=== PATIENT | female | born 1945 | race Caucasian/White ===

== ENCOUNTER → 2017-06-01 | Outpatient (CLI) | payer MEDICARE, BC ==
--- NOTE | 2017-06-03 08:04 | MM ---
Reason for exam: screening (asymptomatic). Last mammogram was performed 1 year and 3 months ago. History: Patient is postmenopausal. Benign left mammotome panel of the left breast, April 11, 2007. Benign left mammotome panel of the left breast, February 01, 2006. Core biopsy of the left breast. Core biopsy of the right breast. Excisional biopsy of the right breast. Physical Findings: A clinical breast exam by your physician is recommended on an annual basis and results should be correlated with mammographic findings. MG 3D Screening Mammo W/Cad Bilateral CC and MLO view(s) were taken. Prior study comparison: March 10, 2016, bilateral MG 3d screening mammo w/cad. March 01, 2015, left breast MG work up mamm w CAD LT. February 21, 2015, bilateral MG screening mammo w CAD. February 05, 2014, bilateral digital screening mammo w/CAD. December 15, 2012, bilateral digital screening mammo w/CAD. The breast tissue is heterogeneously dense. This may lower the sensitivity of mammography. Previous mammotome biopsy in the left breast x 2. Post excisional changes in the right breast. ASSESSMENT: Negative, BI-RAD 1 RECOMMENDATION: Routine screening mammogram of both breasts in 1 year.
== END | disposition home or self-care (01) ==
LOC: RADMAMWWP 14:51
PROVIDERS: ATTEND Family Medicine
DX: Z12.31 Encounter for screening mammogram for malignant neoplasm of breast (principal)
CPT/HCPCS: 77063; G0202

== ENCOUNTER → 2018-06-08 | Outpatient (CLI) | payer MEDICARE, BC ==
--- NOTE | 2018-06-13 11:31 | MM ---
Reason for exam: screening (asymptomatic). Last mammogram was performed 1 year ago. History: Patient is postmenopausal. Benign left mammotome panel of the left breast, April 11, 2007. Benign left mammotome panel of the left breast, February 01, 2006. Core biopsy of the left breast. Core biopsy of the right breast. Excisional biopsy of the right breast. Physical Findings: A clinical breast exam by your physician is recommended on an annual basis and results should be correlated with mammographic findings. MG 3D Screening Mammo W/Cad Bilateral CC and MLO view(s) were taken. Prior study comparison: June 01, 2017, bilateral MG 3d screening mammo w/cad. March 10, 2016, bilateral MG 3d screening mammo w/cad. The breast tissue is heterogeneously dense. This may lower the sensitivity of mammography. Benign calcifications in the right breast. Post biopsy change bilaterally. No significant changes when compared with prior studies. ASSESSMENT: Benign, BI-RAD 2 RECOMMENDATION: Routine screening mammogram of both breasts in 1 year.
== END | disposition home or self-care (01) ==
LOC: RADMAMWWP 10:12
PROVIDERS: ATTEND Family Medicine
DX: Z12.31 Encounter for screening mammogram for malignant neoplasm of breast (principal)
CPT/HCPCS: 77063; 77067

== ENCOUNTER 2019-05-10 01:22 | Inpatient (IN) | payer MEDICARE, BC ==
[2019-05-10 02:19] LABS: Basophils % (A) 0 %; Eosinophils # (A) 0.1 k/uL (0-0.7); Eosinophils % (A) 2 %; HCT 41.3 % (34.0-46.0); HGB 13.9 gm/dL (11.4-16.0); Lymphocytes % (A) 13 %; MCH 32.9 pg (25.0-35.0); MCHC 33.7 g/dL (31.0-37.0); MCV 97.7 fL (80.0-100.0); Mean Platelet Volume 7.6; Monocytes # (A) 0.4 k/uL (0-1.0); Monocytes % (A) 5 %; Neutrophils # (A) 6.2 k/uL (1.3-7.7); Neutrophils % (A) 77 %; Platelet Count 205 k/uL (150-450); RBC 4.23 m/uL (3.80-5.40); RDW 13.6 % (11.5-15.5)
[2019-05-10 02:29] LABS: ALT 40 U/L (9-52); AST 57 U/L (14-36); African American GFR (CKD) >90 (>60 ml/min/1.73 sqM); Albumin 3.9 g/dL (3.5-5.0); Alkaline Phosphatase 129 U/L (38-126); Anion Gap 11 mmol/L; Blood Urea Nitrogen 19 mg/dL (7-17); Carbon Dioxide 19 mmol/L (22-30); Chloride 104 mmol/L (98-107); Glucose 106 mg/dL (74-99); Magnesium 1.9 mg/dL (1.6-2.3); Sodium 134 mmol/L (137-145); Total Bilirubin 0.5 mg/dL (0.2-1.3); Total Protein 6.9 g/dL (6.3-8.2)
--- NOTE | 2019-05-10 02:32 | XR ---
EXAM: XR Chest, 2 Views CLINICAL HISTORY: ITS.REASON XR Reason: Chest Pain TECHNIQUE: Frontal and lateral views of the chest. COMPARISON: 08/24/15. FINDINGS: Lungs: Mild lower lung atelectasis or developing infiltrate. Pleural space: No significant pleural effusion or pneumothorax. Heart: Stable cardiomediastinal silhouette. Mediastinum: See above. Bones/joints: No acute fracture. IMPRESSION: Mild lower lung atelectasis or developing infiltrate.
[2019-05-10 02:34] LABS: INR 0.9 (<1.2); Partial Thromboplastin Time 24.1 sec (22.0-30.0); Prothrombin Time 10.1 sec (9.0-12.0)
[2019-05-10] MEDS ORDERED: HEPARIN SODIUM,PORCINE 5,000 UNIT/ML 1 ML VIAL IV PRN (02:57)
[2019-05-10] MEDS ORDERED: HEPARIN SODIUM,PORCINE 5,000 UNIT/ML 1 ML VIAL IV ONE (02:57)
[2019-05-10] MEDS ORDERED: HEPARIN SOD,PORK IN 0.45% NACL 25,000 UNIT in 0.45% NACL 1 250ML.BAG IV SCH (03:00)
[2019-05-10] MEDS ORDERED: MORPHINE SULFATE 2 MG/ML SYRINGE IVP PRN (03:01)
--- NOTE | 2019-05-10 03:11 | ED ---
Chest Pain HPI - General Chief Complaint: Chest Pain Stated Complaint: Chest discomfort Time Seen by Provider: 05/10/19 01:50 Source: patient, family Mode of arrival: ambulatory Limitations: no limitations - History of Present Illness Initial Comments: This patient is 73-year-old woman who presents with substernal chest pain that woke her from sleep tonight. She does have history of previous for vessel CABG performed approximately 9 years ago. The patient states she has been having episodes like this intermittently going back a number of months now. She had described this to her sugar mixer and she had actually had a stress test in the clinic today. She does not believe that they had a result from a stress test yet. She states that in addition to the substernal pain, which she cannot characterize well, she had some radiation to her left arm. She states that the symptoms lasted number of minutes but have now resolved. She had some asso ciated shortness of breath. MD Complaint: chest pain -: hour(s) Onset: awoke with symptoms Pain Location: substernal Pain Radiation: LUE Severity: moderate Quality: other (Unable to characterize) Consistency: now resolved Improves With: nothing Worsens With: nothing Anginal Symptoms: dyspnea Treatments Prior to Arrival: none - Related Data Home Medications Medication Instructions Recorded Confirmed Isosorbide Mononitrate ER [Imdur] 0 mg PO DAILY 08/24/15 08/24/15 Simvastatin [Zocor] 0 mg PO HS 08/24/15 08/24/15 Thyroid,Pork [[place] Thyroid] 60 mg PO DAILY 08/24/15 08/24/15 Allergies Allergy/AdvReac Type Severity Reaction Status Date / Time morphine Allergy Itching Verified 05/10/19 01:36 narcotics Allergy Unknown Uncoded 08/24/15 16:08 Review of Systems ROS Statement: Those systems with pertinent positive or pertinent negative responses have been documented in the HPI. ROS Other: All systems not noted in ROS Statement are negative. Constitutional: Denies: fever, chills Respiratory: Reports: as per HPI, dyspnea. Denies: cough, wheezes Cardiovascular: Reports: chest pain. Denies: palpitations, orthopnea, edema, syncope Gastrointestinal: Denies: abdominal pain, nausea, vomiting Genitourinary: Denies: dysuria, hematuria Musculoskeletal: Denies: back pain Skin: Denies: rash Neurological: Denies: headache, weakness, numbness Hematological/Lymphatic: Denies: easy bleeding EKG Findings - EKG Results: EKG: interpreted by CLARISSED, sinus rhythm (With sinus arrhythmia, Rate approximate 77 bpm), normal axis, normal QRS - Blocks, [place], Hypertrophy, ST Abn: Repolarization changes or abnormalities: ST or T wave suggestive of ischemia (Lateral leads) Past Medical History Past Medical History: Coronary Artery Disease (CAD) Additional Past Medical History / Comment(s): shorgen's, reynauds, back pain History of Any Multi-Drug Resistant Organisms: None Reported Past Surgical History: Coronary Bypass/CABG Past Psychological History: No Psychological Hx Reported Smoking Status: Former smoker Past Alcohol Use History: Occasional Past Drug Use History: None Reported General Exam Limitations: no limitations General appearance: alert, in no apparent distress Head exam: Present: atraumatic, normocephalic Eye exam: Present: normal appearance. Absent: scleral icterus, conjunctival injection ENT exam: Present: normal oropharynx Neck exam: Present: normal inspection Respiratory exam: Present: normal lung sounds bilaterally. Absent: respiratory distress, wheezes, rales, rhonchi, stridor Cardiovascular Exam: Present: regular rate, normal rhythm, normal heart sounds. Absent: systolic murmur, diastolic murmur, rubs, gallop GI/Abdominal exam: Present: soft. Absent: distended, tenderness, guarding, rebound, rigid Extremities exam: Present: normal inspection, normal capillary refill. Absent: pedal edema, calf tenderness Back exam: Present: normal inspection. Absent: CVA tenderness (R), CVA tenderne ss (L) Neurological exam: Present: alert Skin exam: Present: warm, dry, intact, normal color. Absent: rash Course Vital Signs 05/10/19 05/10/19 01:31 03:00 Temperature 97.5 F L Pulse Rate 84 83 Respiratory 19 18 Rate Blood Pressure 145/85 128/71 O2 Sat by Pulse 99 97 Oximetry Disposition Clinical Impression: Chest pain, Elevated troponin I level Disposition: ADMITTED IP TO THIS HOSP Condition: Fair Referrals: Katherin Sanchez MD [Primary Care Provider] - 1-2 days
[2019-05-10] MEDS: SODIUM CHLORIDE 0.9% 1,000 ML IV SCH ×2 (03:16→13:45)
[2019-05-10 04:14] LABS: Glucose,Whole Blood 111 mg/dL (75-99)
[2019-05-10] MEDS: ISOSORBIDE MONONITRATE ER 30 MG TAB.ER.24H PO SCH (08:25)
[2019-05-10] MEDS: THYROID, PORK 30 MG TAB PO SCH (08:25)
[2019-05-10 08:52] LABS: Basophils % (A) 1 %; Eosinophils # (A) 0.1 k/uL (0-0.7); Eosinophils % (A) 2 %; HCT 42.5 % (34.0-46.0); HGB 14.1 gm/dL (11.4-16.0); Lymphocytes % (A) 21 %; MCHC 33.2 g/dL (31.0-37.0); MCV 99.3 fL (80.0-100.0); Mean Platelet Volume 7.7; Monocytes # (A) 0.3 k/uL (0-1.0); Monocytes % (A) 6 %; Neutrophils # (A) 3.3 k/uL (1.3-7.7); Neutrophils % (A) 68 %; Platelet Count 169 k/uL (150-450); RBC 4.29 m/uL (3.80-5.40); RDW 13.1 % (11.5-15.5); WBC 4.8 k/uL (3.8-10.6)
[2019-05-10] MEDS ORDERED: METOPROLOL TARTRATE 50 MG TAB PO SCH (09:15)
[2019-05-10] MEDS ORDERED: ASPIRIN 325 MG TAB PO STA (10:22)
[2019-05-10] MEDS: ATORVASTATIN 40 MG TAB PO SCH (10:32)
--- NOTE | 2019-05-10 11:09 | P.HPIM ---
History of Present Illness H&P Date: 05/10/19 This is a 73-year-old female patient of Dr. Sanchez. Patient presents with complaints of chest pain. Patient reports the chest pain woke her up from her sleep last night was described as Center chest pain that radiated down both arms. Patient does have a past medical history of previous coronary artery bypass graft surgery approximately 9 years ago. Additional medical history includes Reynauds, back pain and ex-smoker. Chest x-ray completed showing mild lower lung atelectasis or developing infiltrate. EKG completed showing sinus rhythm with marked sinus arrhythmia. Patient having elevated troponin 0.126 and 3.860. Patient started on heparin drip cardiology service consulted planning c ardiac catheterization today. At this time reporting improvement with chest pain. Patient denies shortness breath. Patient denies cough. Patient denies nausea vomiting or diarrhea. Patient denies any urinary burning or frequency. Repeat chest x-ray has been ordered for a.m. Review of Systems please refer to HPI otherwise unremarkable Past Medical History Past Medical History: Coronary Artery Disease (CAD), Hyperlipidemia, Hypertension Additional Past Medical History / Comment(s): denys, richards, back pain History of Any Multi-Drug Resistant Organisms: None Reported Past Surgical History: Coronary Bypass/CABG Additional Past Surgical History / Comment(s): back fusion approx 2008 Past Anesthesia/Blood Transfusion Reactions: No Reported Reaction Additional Past Anesthesia/Blood Transfusion Reaction / Comment(s): "takes longer to come out from anesthesia" Past Psychological History: No Psychological Hx Reported Smoking Status: Former smoker Past Alcohol Use History: Occasional Past Drug Use History: None Reported Medications and Allergies Home Medications Medication Instructions Recorded Confirmed Type Isosorbide Mononitrate ER [Imdur] 30 mg PO DAILY 08/24/15 05/10/19 History Thyroid,Pork [[place] Thyroid] 60 mg PO DAILY 08/24/15 05/10/19 History Ezetimibe [Zetia] 10 mg PO DAILY 05/10/19 05/10/19 History Simvastatin [Zocor] 40 mg PO HS 05/10/19 05/10/19 History traMADol HCL/ACETAMINOPHEN 1 tab PO BID PRN 05/10/19 05/10/19 History [Ultracet 37.5-325] Allergies Allergy/AdvReac Type Severity Reaction Status Date / Time morphine Allergy Itching Verified 05/10/19 07:23 narcotics Allergy Unknown Uncoded 08/24/15 16:08 Physical Exam Vitals: Vital Signs Temp Pulse Pulse Resp BP BP Pulse Ox 05/10/19 10:00 98 18 05/10/19 08:00 97.6 F 90 18 118/78 97 05/10/19 04:00 87 18 05/10/19 03:47 98 F 87 16 135/68 98 05/10/19 03:30 84 16 130/63 96 05/10/19 03:00 83 18 128/71 97 05/10/19 01:31 97.5 F L 84 19 145/85 99 Intake and Output 05/09/19 05/10/19 05/10/19 22:59 06:59 14:59 Intake Total 42.395 Balance 42.395 Intake: Intake, IV Titration 42.395 Amount Heparin Sod,Pork in 0.45% 42.395 NaCl 25,000 unit In 0.45 % NaCl 1 250ml.bag @ 12 UNITS/KG/HR 6.042 mls/hr IV .Q24H [facility] Rx#: [id number] Other: Voiding Method Toilet Toilet # Voids 1 Weight 50.6 kg Head normocephalic Neck supple Lungs clear to auscultation bilaterally no wheezing or crackles Heart regular rate and rhythm S1-S2, no rub or gallop Abdomen is soft nontender nondistended positive bowel sounds no hepatosplenomegaly Extremities no edema Neuro alert and orientated to 3 Results CBC & Chem 7: 05/10/19 08:20 05/10/19 02:00 Labs: Abnormal Lab Results - Last 24 Hours (Table) 05/10/19 05/10/19 05/10/19 Range/Units 02:00 02:00 04:13 APTT (22.0-30.0) sec Sodium 134 L (137-145) mmol/L Carbon Dioxide 19 L (22-30) mmol/L BUN 19 H (7-17) mg/dL Creatinine 0.51 L (0.52-1.04) mg/dL Glucose 106 H (74-99) mg/dL POC Glucose (mg/dL) 111 H (75-99) mg/dL AST 57 H (14-36) U/L Alkaline Phosphatase 129 H (38-126) U/L Troponin I 0.126 H* (0.000-0.034) ng/mL 05/10/19 05/10/19 Range/Units 08:20 08:20 APTT 62.4 H (22.0-30.0) sec Sodium (137-145) mmol/L Carbon Dioxide (22-30) mmol/L BUN (7-17) mg/dL Creatinine (0.52-1.04) mg/dL Glucose (74-99) mg/dL POC Glucose (mg/dL) (75-99) mg/dL AST (14-36) U/L Alkaline Phosphatase (38-126) U/L Troponin I 3.860 H* (0.000-0.034) ng/mL Thrombosis Risk Factor Assmnt - Choose All That Apply Any of the Below Risk Factors Present?: No Other Risk Factors: Yes Each Risk Factor Represents 2 Points: Age 61-74 years Other congenital or acquired thrombophilia - If yes, enter type in comment: No Thrombosis Risk Factor Assessment Total Risk Factor Score: 2 Thrombosis Risk Factor Assessment Level: Low Risk Assessment and Plan Assessment: 1. Chest pain related to non-ST elevated DC. Troponins elevated at 0.126 and 3.860. EKG completed showing sinus rhythm with marked sinus arrhythmia. Cardiology service is consulted. Heparin drip started. Patient planning to be taken to cardiac Cath per cardiology. 2. History of coronary artery bypass graft surgery 9 years prior 3. Ex-smoker 4. essential hypertension 5. Chronic back pain 6. History of reynauds 7. Hypothyroidism. Home meds resumed 8. Hyperlipidemia. DVT prophylaxis heparin drip. GI prophylaxis Pepcid Repeat chest x-ray ordered for a.m. Time with Patient: Greater than 30 (Greater than 60% of the total time spent in counseling and coordination of care. I performed an examination of the patient and discussed their management with the Nurse Practitioner. I have reviewed the Nurse Practitioner's notes and agree with the documented findings and plan of care)
[2019-05-10] MEDS ORDERED: IV FLUID CONTINUATION 400 ML IV ONE (11:19)
[2019-05-10] MEDS ORDERED: LIDOCAINE 1% INJ 10MG/ML (20 ML MDV) ONE (11:25)
[2019-05-10] MEDS ORDERED: fentaNYL (PF) 50 MCG/ML 2 ML AMP ONE (11:25)
[2019-05-10] MEDS ORDERED: fentaNYL (PF) 50 MCG/ML 2 ML AMP IV ONE (11:30)
[2019-05-10] MEDS ORDERED: LIDOCAINE 1% INJ 10MG/ML (20 ML MDV) SQ ONE (11:31)
[2019-05-10] MEDS ORDERED: MIDAZOLAM (PF) 2 MG/2 ML VIAL IV ONE (11:34)
[2019-05-10] MEDS ORDERED: IOPAMIDOL-370 125ML BTL INJ ONE (11:53)
[2019-05-10] MEDS ORDERED: IOPAMIDOL-370 100ML BTL INJ ONE (11:53)
[2019-05-10] MEDS ORDERED: RX INFO: IV CONTRAST WAS GIVEN 1 EACH MISC MISCELLANE PRN (12:09)
[2019-05-10] MEDS ORDERED: SODIUM CHLORIDE 0.9% 1,000 ML IV SCH (12:15)
[2019-05-10] MEDS ORDERED: ONDANSETRON 4 MG/2 ML VIAL IVP PRN (13:01)
[2019-05-10] MEDS ORDERED: ACETAMINOPHEN TAB 325 MG TAB PO PRN (13:01)
--- NOTE | 2019-05-10 13:44 | P.CRDCN ---
History of Present Illness History of present illness: This is Gracie Gaxiola PA-C dictating a consult on this patient The patient was interviewed and examined by me as well as by Dr. Suarez Case discussed with Dr. Suarez and he agrees with the plan of care IMPRESSION / ASSESSMENT: Acute coronary syndrome, rising troponins and ST depressions in the lateral pericardial and inferior leads, likely non-Q-wave [place] History of CAD status post CABG 4 Hypertension Dyslipidemia Hypothyroidism History of smoking PLAN: Patient has been given aspirin and started on heparin Discussed patient with Dr. López, he will proceed with coronary angiogram Increase atorvastatin to 40 mg daily Start metoprolol 50 mg twice a day HPI Patient is a 73-year-old female the past medical history of CAD status post CABG 4, hypertension, hypothyroidism, dyslipidemia, Sjgren syndrome, Raynaud's syndrome who presented with complaints of chest pain. She describes the pain as a" discomfort not pain" across her chest that radiates down her arms into her shoulders. She woke up with the pain. He also admits to associated shortness of breath. Denies nausea or diaphoresis. She states this pain is different from the pain she experienced during her [place] which was more of a" chest pain". She has been having this chest discomfort and associated shortness of breath with exertion on and off for the last few months. She also sometimes wakes up with the wakes up. She saw her child development instructor, Dr. López in the office and recently had a stress test. We do not have the results here. On admission, EKG showed ST depressions in the lateral precordial leads and inferior leads. Troponin elevated at 0.126. Patient seen and examined lying in bed. She still has the discomfort. Denies nausea, vomiting, diaphoresis, palpitations, lightheadedness, dizziness, syncope. ROS: No fevers, chills or rigors, no cough, phlegm or expectoration, no nausea, vomiting or diarrhea, no hematuria, dysuria, no musculoskeletal complaints, no strokes or seizures, no skin lesions. EXAMINATION: Patient is afebrile, pulse 90, respirations 15, blood pressure 118/78, oxygen saturation 97% on 2 L nasal cannula Patient seen and examined resting in bed, does not appear to be in any acute distress Lungs clear to auscultation bilaterally Heart is regular, systolic murmur appreciated at the apex No elevated JVD No lower extremity edema REVIEW OF LABS, ECG & MEDICAL DATA WBC 8.0, hemoglobin 13.9, platelets 205, sodium 134, potassium 4.0, BUNs 19, creatinine 0.51, magnesium 1.9 Troponin 3.860 from 0.[address] depression in the lateral precordial leads and inferior leads Past Medical History Past Medical History: Coronary Artery Disease (CAD), Hyperlipidemia, Hypertension Additional Past Medical History / Comment(s): samaria mcfarlane, back pain History of Any Multi-Drug Resistant Organisms: None Reported Past Surgical History: Coronary Bypass/CABG Additional Past Surgical History / Comment(s): back fusion approx 2008 Past Anesthesia/Blood Transfusion Reactions: No Reported Reaction Additional Past Anesthesia/Blood Transfusion Reaction / Comment(s): "takes longer to come out from anesthesia" Past Psychological History: No Psychological Hx Reported Smoking Status: Former smoker Past Alcohol Use History: Occasional Past Drug Use History: None Reported Medications and Allergies Home Medications Medication Instructions Recorded Confirmed Type Isosorbide Mononitrate ER [Imdur] 30 mg PO DAILY 08/24/15 05/10/19 History Thyroid,Pork [[place] Thyroid] 60 mg PO DAILY 08/24/15 05/10/19 History Ezetimibe [Zetia] 10 mg PO DAILY 05/10/19 05/10/19 History Simvastatin [Zocor] 40 mg PO HS 05/10/19 05/10/19 History traMADol HCL/ACETAMINOPHEN 1 tab PO BID PRN 05/10/19 05/10/19 History [Ultracet 37.5-325] Allergies Allergy/AdvReac Type Severity Reaction Status Date / Time morphine Allergy Itching Verified 05/10/19 07:23 narcotics Allergy Unknown Uncoded 08/24/15 16:08 Physical Exam Vitals: Vital Signs Temp Pulse Pulse Resp BP BP Pulse Ox 05/10/19 04:00 87 18 05/10/19 03:47 98 F 87 16 135/68 98 05/10/19 03:30 84 16 130/63 96 05/10/19 03:00 83 18 128/71 97 05/10/19 01:31 97.5 F L 84 19 145/85 99 Intake and Output 05/09/19 05/10/19 05/10/19 22:59 06:59 14:59 Other: Voiding Method Toilet # Voids 1 Weight 50.6 kg Results 05/10/19 08:20 05/10/19 02:00 Cardiac Enzymes 05/10/19 05/10/19 Range/Units 02:00 02:00 AST 57 H (14-36) U/L Troponin I 0.126 H* (0.000-0.034) ng/mL Coagulation 05/10/19 Range/Units 02:00 PT 10.1 (9.0-12.0) sec APTT 24.1 (22.0-30.0) sec CBC 05/10/19 Range/Units 02:00 WBC 8.0 (3.8-10.6) k/uL RBC 4.23 (3.80-5.40) m/uL Hgb 13.9 (11.4-16.0) gm/dL Hct 41.3 (34.0-46.0) % Plt Count 205 (150-450) k/uL Comprehensive Metabolic Panel 05/10/19 Range/Units 02:00 Sodium 134 L (137-145) mmol/L Potassium 4.0 (3.5-5.1) mmol/L Chloride 104 (98-107) mmol/L Carbon Dioxide 19 L (22-30) mmol/L BUN 19 H (7-17) mg/dL Creatinine 0.51 L (0.52-1.04) mg/dL Glucose 106 H (74-99) mg/dL Calcium 9.0 (8.4-10.2) mg/dL AST 57 H (14-36) U/L ALT 40 (9-52) U/L Alkaline Phosphatase 129 H (38-126) U/L Total Protein 6.9 (6.3-8.2) g/dL Albumin 3.9 (3.5-5.0) g/dL Current Medications Generic Name Dose Route Start Last Admin Trade Name Freq PRN Reason Stop Dose Admin Aspirin 325 mg 05/11/19 09:00 Aspirin PO DAILY FAWAD Atorvastatin Calcium 10 mg 05/10/19 21:00 Lipitor PO HS FAWAD Heparin Sodium (Porcine) 0 unit 05/10/19 02:57 Heparin IV PER PROTOCOL PRN Low PTT Protocol Heparin Sodium/Sodium Chloride 250 mls @ 6.042 mls/hr 05/10/19 03:00 05/10/19 03:22 25,000 unit/ Sodium Chloride IV 12 units/kg/hr .Q24H FAWAD 6.042 mls/hr Administration Protocol 12 UNITS/KG/HR Sodium Chloride 1,000 mls @ 90 mls/hr 05/10/19 03:15 05/10/19 03:16 Saline 0.9% IV 90 mls/hr .Q11H7M FAWAD Administration Isosorbide Mononitrate 30 mg 05/10/19 09:00 Imdur PO DAILY FAWAD Nitroglycerin 0.4 mg 05/10/19 03:01 Nitrostat SUBLINGUAL Q5M PRN Chest Pain Thyroid 60 mg 05/10/19 09:00 [place] Thyroid PO DAILY FAWAD Intake and Output 05/09/19 05/10/19 05/10/19 22:59 06:59 14:59 Other: Voiding Method Toilet # Voids 1 Weight 50.6 kg 05/10/19 02:00 05/10/19 02:00
[2019-05-10] MEDS: CLOPIDOGREL 75 MG TAB PO SCH (13:45)
[2019-05-10 14:47] VITALS: BMI 18.6
[2019-05-10] MEDS: traMADol-ACETAMINOP 37.5-325MG 1 EACH TAB PO PRN (14:48)
--- NOTE | 2019-05-10 16:22 | CC ---
CARDIAC CATHETERIZATION REPORT Mrs. Reddy is a 73-year-old female with known history of coronary artery disease, status post coronary artery bypass grafting, history of hypertension and hyperlipidemia, who presented with symptoms of chest discomfort and had mild troponin elevation. In view of that, recommendation was made regarding cardiac catheterization. The procedure as well as risks and complications were discussed with the patient, who was in full understanding and agreement. PROCEDURE: Patient was brought to the [facility] in a fasting, semi-sedated state after receiving fentanyl and Benadryl and achieving a moderate conscious sedated state. Using Xylocaine anesthesia and Seldinger technique, a 6-Lao sheath was introduced in the right femoral artery. Selective right and left coronary angiography was performed using 6-Lao 4 bend right and right Leonie catheters. Multiple views were taken of the coronary arteries, including hemiaxial views. Following that, a 6-Lao right Leonie was used to cannulate the saphenous vein graft to the obtuse marginal branch 1,2 and diagonal and HERNANDEZ to LAD. Images of the grafts were obtained. Following that, a 6-Lao tight pigtail catheter was introduced in the left ventricle and a 30- degree ROBLES view of the left ventricle was obtained. Following that, catheter and sheath were removed. Hemostasis was obtained with deployment of an Angio-Seal. There was no immediate complication. Patient was returned to her room in stable condition. FINDINGS: 1. FLUOROSCOPY: There was severe calcification involving all the coronary arteries. 2. LEFT MAIN: This vessel is 99% occluded distally with minimal flow into the LAD and the diagonal. 3. LAD: This vessel is totally occluded proximally with no antegrade flow. 4. LEFT CIRCUMFLEX: This vessel is occluded proximally with no antegrade flow. 5. RIGHT CORONARY ARTERY: This vessel is dominant, diffusely diseased throughout the proximal and mid segment, totally occluded distally, with no significant antegrade flow. Throughout the vessel the of the vessel has diffuse disease, up to 95% before the total occlusion. 6. Saphenous vein graft to the second obtuse marginal branch. The proximal and distal anastomotic sites are patent. The flow into the obtuse marginal branch is brisk, has retrograde flow in the proximal left circumflex. 7. Saphenous vein graft to the obtuse marginal branch 1. This graft is totally occluded proximally. 8. Saphenous vein graft to the diagonal branch. The proximal and distal anastomotic sites are patent. There is retrograde flow into the LAD filling up the LAD and there is also retrograde flow into the distal RCA and the PDA. 9. HERNANDEZ to LAD. The distal anastomotic site is totally occluded. There is no flow into the LAD. LEFT VENTRICULOGRAM: Left ventriculogram was performed in 30-degree ROBLES view and revealed inferoapical akinesis with 3 to 4+ mitral regurgitation. HEMODYNAMICS: There was no gradient across the aortic valve. The left ventricular end- diastolic pressure was 12 to 14 mmHg. CONCLUSION: 1. Severe triple-vessel coronary artery disease with subtotally occluded distal left main. 2. Patent saphenous vein graft to diagonal branch with retrograde flow into the LAD. 3. Patent saphenous vein graft to the obtuse marginal branch 2. 4. Totally occluded saphenous vein graft to the obtuse marginal branch and totally occluded distal HERNANDEZ graft. 5. Moderately impaired left ventricular systolic function with 3 to 4+ mitral regurgitation. RECOMMENDATION: It is possible that some of her symptoms are related to the acute total occlusion of the distal left main. At this time I will maximize her medical therapy, re- evaluate her mitral regurgitation by echocardiography and, depending on her progress, further recommendations will be made. Those findings and recommendations were discussed with the patient, and she is in full understanding and agreement. Duration of procedure was 25 minutes. MMODL / IJN: [id number] / [place]IE
[2019-05-10] MEDS ORDERED: ATORVASTATIN 10 MG TAB PO SCH (21:00)
[2019-05-10] MEDS: METOPROLOL TARTRATE 25 MG TAB PO SCH (21:09)
[2019-05-11] MEDS: traMADol-ACETAMINOP 37.5-325MG 1 EACH TAB PO PRN ×2 (04:35→17:01)
[2019-05-11 05:03] LABS: Basophils % (A) 1 %; Eosinophils # (A) 0.2 k/uL (0-0.7); Eosinophils % (A) 3 %; HCT 39.3 % (34.0-46.0); Lymphocytes # (A) 1.1 k/uL (1.0-4.8); Lymphocytes % (A) 19 %; MCH 32.9 pg (25.0-35.0); MCV 99.5 fL (80.0-100.0); Mean Platelet Volume 7.6; Monocytes # (A) 0.4 k/uL (0-1.0); Monocytes % (A) 7 %; Neutrophils % (A) 67 %; Platelet Count 180 k/uL (150-450); RBC 3.95 m/uL (3.80-5.40); RDW 13.2 % (11.5-15.5); WBC 5.9 k/uL (3.8-10.6)
[2019-05-11 05:13] LABS: ALT 52 U/L (9-52); AST 135 U/L (14-36); African American GFR (CKD) >90 (>60 ml/min/1.73 sqM); Albumin 3.1 g/dL (3.5-5.0); Alkaline Phosphatase 75 U/L (38-126); Anion Gap 6 mmol/L; Blood Urea Nitrogen 13 mg/dL (7-17); Calcium 8.2 mg/dL (8.4-10.2); Carbon Dioxide 20 mmol/L (22-30); Chloride 111 mmol/L (98-107); Cholesterol 92 mg/dL (<200); Glucose 84 mg/dL (74-99); HDL Cholesterol 60 mg/dL (40-60); LDL Cholesterol,Calculated 24 mg/dL (0-99); Potassium 4.1 mmol/L (3.5-5.1); Sodium 137 mmol/L (137-145); Total Bilirubin 0.5 mg/dL (0.2-1.3); Total Protein 5.7 g/dL (6.3-8.2); Triglycerides 41 mg/dL (<150)
--- NOTE | 2019-05-11 08:34 | XR ---
EXAMINATION TYPE: XR chest 2V DATE OF EXAM: 05/11/2019 COMPARISON: 05/10/2019 INDICATION: Follow-up infiltrate TECHNIQUE: Frontal and lateral views of the chest are obtained. FINDINGS: The heart size is normal. The pulmonary vasculature is normal. There is resolution of previous atelectasis at the left base. Lung monge appear clear. Sternotomy wi res are present from prior CABG.. IMPRESSION: 1. No acute pulmonary process.
[2019-05-11] MEDS ORDERED: ASPIRIN 325 MG TAB PO SCH (09:00)
[2019-05-11] MEDS: LISINOPRIL 5 MG TAB PO SCH (09:30)
[2019-05-11] MEDS: THYROID, PORK 30 MG TAB PO SCH (09:30)
[2019-05-11] MEDS: SODIUM CHLORIDE 0.9% 1,000 ML IV SCH (09:38)
[2019-05-11] MEDS: ISOSORBIDE MONONITRATE ER 30 MG TAB.ER.24H PO SCH (09:40)
[2019-05-11] MEDS: FAMOTIDINE 20 MG TAB PO SCH (09:40)
[2019-05-11] MEDS: METOPROLOL TARTRATE 25 MG TAB PO SCH (09:40)
[2019-05-11] MEDS: ATORVASTATIN 40 MG TAB PO SCH (09:40)
[2019-05-11] MEDS: CLOPIDOGREL 75 MG TAB PO SCH (09:40)
[2019-05-11] MEDS: ASPIRIN 81 MG PO SCH (09:41)
--- NOTE | 2019-05-11 10:25 | ECHOF ---
Referral Reason:mi,mr MEASUREMENTS -------- HEIGHT: 165.1 cm WEIGHT: 50.3 kg BP: 133/54 RVIDd: 2.6 cm (< 3.3) IVSd: 1.3 cm (0.6 - 1.1) LVIDd: 5.2 cm (3.9 - 5.3) LVPWd: 1.3 cm (0.6 - 1.1) IVSs: 1.5 cm LVIDs: 4.1 cm LVPWs: 1.5 cm LA Diam: 4.1 cm (2.7 - 3.8) LAESV Index (A-L): 38.04 ml/m Ao Diam: 3.0 cm (2.0 - 3.7) AV Cusp: 1.8 cm (1.5 - 2.6) MV EXCURSION: 19.132 mm (> 18.000) MV EF SLOPE: 103 mm/s (70 - 150) EPSS: 1.3 cm MV E Chad: 1.20 m/s MV DecT: 234 ms MV A Chad: 0.39 m/s MV E/A Ratio: 3.08 AR PHT: 327 ms RAP: 5.00 mmHg RVSP: 35.21 mmHg FINDINGS -------- Sinus rhythm. This was a technically good study. The left ventricular size is normal. There is mild concentric left ventricular hypertrophy. Overa ll left ventricular systolic function is mild-moderately impaired with, an EF between 40 - 45 %. Ba meredith inferior LV wall motion is hypokinetic. Basal inferoseptal LV wall motion is hypokinetic. M id inferior LV wall motion is hypokinetic. Mid inferoseptal LV wall motion is hypokinetic. The right ventricle is normal in size. LA is moderately dilated 34-39 ml/m2 The right atrium is normal in size. Interatrial and interventricular septum intact. There is mild aortic valve sclerosis. There is moderate aortic regurgitation. The mitral valve leaflets are mildly thickened. Mild mitral annular calcification present. Severe mitral regurgitation is present. Moderate tricuspid regurgitation present. There is mild pulmonary hypertension. The right ventric ular systolic pressure, as measured by Doppler, is 35.21mmHg. Trace/mild (physiologic) pulmonic regurgitation. The aortic root size is normal. Normal inferior vena cava with normal inspiratory collapse consistent with estimated right atrial pre ssure of 5 mmHg. There is no pericardial effusion. CONCLUSIONS -------- 1. Sinus rhythm. 2. This was a technically good study. 3. The left ventricular size is normal. 4. There is mild concentric left ventricular hypertrophy. 5. Overall left ventricular systolic function is mild-moderately impaired with, an EF between 40 - 45 %. 6. Basal inferior LV wall motion is hypokinetic. 7. Basal inferoseptal LV wall motion is hypokinetic. 8. Mid inferior LV wall motion is hypokinetic. 9. Mid inferoseptal LV wall motion is hypokinetic. 10. The right ventricle is normal in size. 11. LA is moderately dilated 34-39 ml/m2 12. The right atrium is normal in size. 13. Interatrial and interventricular septum intact. 14. There is mild aortic valve sclerosis. 15. There is moderate aortic regurgitation. 16. The mitral valve leaflets are mildly thickened. 17. Mild mitral annular calcification present. 18. Severe mitral regurgitation is present. 19. Moderate tricuspid regurgitation present. 20. There is mild pulmonary hypertension. 21. The right ventricular systolic pressure, as measured by Doppler, is 35.21mmHg. 22. Trace/mild (physiologic) pulmonic regurgitation. 23. The aortic root size is normal. 24. Normal inferior vena cava with normal inspiratory collapse consistent with estimated right atrial pressure of 5 mmHg. 25. There is no pericardial effusion. STAKING PRESS OPERATOR: Bruna Morton RDCS
--- NOTE | 2019-05-11 11:10 | P.PN ---
Subjective Progress Note Date: 05/11/19 This is a 73-year-old female patient of Dr. Sanchez. Patient presents with complaints of chest pain. Patient reports the chest pain woke her up from her sleep last night was described as Center chest pain that radiated down both arms. Patient does have a past medical history of previous coronary artery bypass graft surgery approximately 9 years ago. Additional medical history includes Reynauds, back pain and ex-smoker. Chest x-ray completed showing mild lower lung atelectasis or developing infiltrate. EKG completed showing sinus rhythm with marked sinus arrhythmia. Patient having elevated troponin 0.126 and 3.860. Patient started on heparin drip cardiology service consulted planning cardiac catheterization today. At this time reporting improvement with chest pain. Patient denies shortness breath. Patient denies cough. Patient denies nausea vomiting or diarrhea. Patient denies any urinary burning or frequency. Repeat chest x-ray has been ordered for a.m. On 05/11/2019 patient is alert and oriented 3. Patient currently up brushing teeth in bathroom. Patient did undergo cardiac catheterization yesterday without intervention per cardiology services JT echo to be completed today. Discussed with nursing staff patient will be kept for monitoring per cardiology. At this time patient reports she is still short of breath but denies any chest pain. Patient denies any nausea vomiting or diarrhea. Patient denies any urinary burning or frequency. Repeat chest x-ray was completed this a.m. showing no acute process. Objective - Vital Signs Vital signs: Vital Signs Temp 97.6 F 05/11/19 08:00 Pulse 60 05/11/19 09:00 Resp 17 05/11/19 09:00 BP 133/54 05/11/19 09:00 Pulse Ox 94 L 05/11/19 09:00 Intake & Output 05/10/19 05/11/19 05/11/19 18:59 06:59 18:59 Intake Total 763.949 2430 Output Total 550 Balance 766.541 7852 Weight 50.6 kg 49.9 kg Intake: IV 150 1080 Sodium Chloride 0.9% 1, 1080 000 ml @ 90 mls/hr IV . Q11H7M [facility] Rx#:[id number] Intake, IV Titration 132.395 Amount Heparin Sod,Pork in 0.45% 42.395 NaCl 25,000 unit In 0.45 % NaCl 1 250ml.bag @ 12 UNITS/KG/HR 6.042 mls/hr IV .Q24H [facility] Rx#: [id number] Sodium Chloride 0.9% 1, 90 000 ml @ 90 mls/hr IV . Q11H7M [facility] Rx#:[id number] Oral 200 540 Output: Urine 550 Other: Voiding Method Toilet Bedside Commode # Voids 1 0 - Exam Head normocephalic Neck supple Lungs clear to auscultation bilaterally no wheezing or crackles Heart regular rate and rhythm S1-S2, no rub or gallop Abdomen is soft nontender nondistended positive bowel sounds no hepatosplenomegaly Extremities no edema Neuro alert and orientated to 3 - Labs CBC & Chem 7: 05/11/19 04:29 05/11/19 04:29 Labs: Abnormal Lab Results - Last 24 Hours (Table) 05/10/19 05/11/19 Range/Units 13:49 04:29 Chloride 111 H (98-107) mmol/L Carbon Dioxide 20 L (22-30) mmol/L Creatinine 0.50 L (0.52-1.04) mg/dL Calcium 8.2 L (8.4-10.2) mg/dL AST 135 H (14-36) U/L Troponin I 6.030 H* (0.000-0.034) ng/mL Total Protein 5.7 L (6.3-8.2) g/dL Albumin 3.1 L (3.5-5.0) g/dL Assessment and Plan Assessment: 1. Chest pain related to non-ST elevated WI. Troponins elevated at 0.126 and 3.860. EKG completed showing sinus rhythm with marked sinus arrhythmia. Cardiac cath completed showing severe triple-vessel coronary artery disease with subtotally occluded distal left main. Per cardiology symptoms may be related to the acute total occlusion of the distal left main per cardiology recommended maximization of her medical therapy and reevaluation of mitral regurg on 2Decho. 2. History of coronary artery bypass graft surgery 9 years prior 3. Ex-smoker 4. essential hypertension 5. Chronic back pain 6. History of reynauds 7. Hypothyroidism. Home meds resumed 8. Hyperlipidemia. I performed an examination of the patient and discussed their management with the Nurse Practitioner. I have reviewed the Nurse Practitioner's notes and agree with the documented findings and plan of care
--- NOTE | 2019-05-11 12:58 | P.PN ---
Subjective This is Gracie Gaxiola PA-C dictating a progress note on this patient The patient was interviewed and examined by me as well as by Dr. Suarez Case discussed with Dr. Suarez and he agrees with the plan of care IMPRESSION / ASSESSMENT: non-Q-wave GA status post coronary angiogram showing triple-vessel disease with subtotally occluded distal left main as well as occluded SVG to obtuse marginal and occluded distal HERNANDEZ graft Impaired LV systolic function, EF 40-45%, ischemic cardiomyopathy Coronary artery disease status post CABG Mitral regurgitation, recent echo showing severe MR Hypertension Dyslipidemia PLAN: Maximize medical therapy for CAD and ischemic cardiomyopathy Continue with atorvastatin 40 mg daily and dual antiplatelet therapy, WANDER, and imdur Increase metoprolol to 50 mg twice a day, monitor blood pressure and for b radycardia Start Ranexa 500 mg twice a day, monitor for QT prolongation Encouraged patient to get up and walk around to see how she is tolerating medication changes HPI/interval history Patient is a 73-year-old female with past medical history of CAD status post CABG who presented with complaints of chest discomfort. Her EKG showed ST depressions in the lateral precordial and inferior leads in her troponins were elevated. She underwent coronary angiography which showed triple-vessel disease, subtotally occluded distal left main, and occluded SVG to obtuse marginal and distal HERNANDEZ graft. The decision was made to treat her medically. Echo showed mild to moderately impaired systolic LV function, EF 40-45%. Patient seen and examined resting comfortably in her chair. States her chest discomfort has completely resolved. Denies any shortness of breath. Was able to get up and walk to the bathroom without any dizziness. EXAMINATION Patient is afebrile, pulse 70, respirations 14, blood pressure 118/56, oxygen saturation 98% on room air Patient seen and examined resting in her chair, no acute distress appears comfortable Lungs are clear to auscultation bilaterally Heart is regular, systolic murmur appreciated at the apex No lower extremity edema noted REVIEW OF LABS, ECG Coronary angiography showed severe triple-vessel coronary artery disease with subtotally occluded distal left main, patent saphenous vein graft to diagonal branch with retrograde flow to LAD, patent saphenous vein graft to obtuse marginal branch 2, totally occluded saphenous vein graft to obtuse marginal br anch and totally occluded distal HERNANDEZ graft, moderately impaired LV systolic function with 3-4+ mitral regurgitation Echocardiogram revealed normal LV size, mild concentric LVH, systolic function mild to moderately impaired, EF 40-45%, basal inferior and inferoseptal hypokinesis, mid inferior and mid inferior septal LV hypokinesis, moderate AR, severe MR EKG sinus rhythm, absolute QT around 460 ms WBC 5.9, hemoglobin 13 0, sodium 137, potassium 41, BUN 13, creatinine 0.5 Troponins 6.03, 3.86, 0.126 Cholesterol 92, LDL 24, triglycerides 41, HDL 60 Objective - Vital Signs Vital signs: Vital Signs Temp 97.6 F 05/11/19 08:00 Pulse 60 05/11/19 09:00 Resp 17 05/11/19 09:00 BP 133/54 05/11/19 09:00 Pulse Ox 94 L 05/11/19 09:00 Intake & Output 05/10/19 05/11/19 05/11/19 18:59 06:59 18:59 Intake Total 359.236 5213 Output Total 550 Balance 116.377 4503 Weight 50.6 kg 49.9 kg Intake: IV 150 1080 Sodium Chloride 0.9% 1, 1080 000 ml @ 90 mls/hr IV . Q11H7M [facility] Rx#:[id number] Intake, IV Titration 132.395 Amount Heparin Sod,Pork in 0.45% 42.395 NaCl 25,000 unit In 0.45 % NaCl 1 250ml.bag @ 12 UNITS/KG/HR 6.042 mls/hr IV .Q24H [facility] Rx#: [id number] Sodium Chloride 0.9% 1, 90 000 ml @ 90 mls/hr IV . Q11H7M [facility] Rx#:[id number] Oral 200 540 Output: Urine 550 Other: Voiding Method Toilet Bedside Commode Bedside Commode # Voids 1 0 - Labs CBC & Chem 7: 05/11/19 04:29 05/11/19 04:29 Labs: Abnormal Lab Results - Last 24 Hours (Table) 05/10/19 05/11/19 Range/Units 13:49 04:29 Chloride 111 H (98-107) mmol/L Carbon Dioxide 20 L (22-30) mmol/L Creatinine 0.50 L (0.52-1.04) mg/dL Calcium 8.2 L (8.4-10.2) mg/dL AST 135 H (14-36) U/L Troponin I 6.030 H* (0.000-0.034) ng/mL Total Protein 5.7 L (6.3-8.2) g/dL Albumin 3.1 L (3.5-5.0) g/dL
[2019-05-11] MEDS: LORATADINE 10 MG TAB PO PRN (17:00)
[2019-05-11] MEDS: NITROGLYCERIN SL TABS 0.4 MG TAB SUBLINGUAL PRN ×2 (17:05→17:36)
[2019-05-11] MEDS ORDERED: HEPARIN SODIUM,PORCINE 5,000 UNIT/ML 1 ML VIAL IV ONE (18:00)
[2019-05-11] MEDS ORDERED: DEXTROSE 5% IN WATER 250 ML with AMIODARONE 300 MG IV ONE (18:30)
[2019-05-11] MEDS: HEPARIN SOD,PORK IN 0.45% NACL 25,000 UNIT in 0.45% NACL 1 250ML.BAG IV SCH (18:50)
[2019-05-11 19:48] LABS: INR 0.9 (<1.2); Partial Thromboplastin Time 22.5 sec (22.0-30.0)
[2019-05-11] MEDS: RANOLAZINE 500 MG TAB.ER.12H PO SCH (22:32)
[2019-05-11] MEDS: METOPROLOL TARTRATE 50 MG TAB PO SCH (22:59)
[2019-05-12 04:14] LABS: Basophils % (A) 0 %; Eosinophils # (A) 0.3 k/uL (0-0.7); Eosinophils % (A) 4 %; HCT 37.4 % (34.0-46.0); HGB 12.5 gm/dL (11.4-16.0); Lymphocytes # (A) 1.4 k/uL (1.0-4.8); Lymphocytes % (A) 24 %; MCH 33.5 pg (25.0-35.0); MCHC 33.5 g/dL (31.0-37.0); Mean Platelet Volume 7.1; Monocytes # (A) 0.6 k/uL (0-1.0); Monocytes % (A) 9 %; Neutrophils # (A) 3.6 k/uL (1.3-7.7); Neutrophils % (A) 59 %; Platelet Count 170 k/uL (150-450); RBC 3.74 m/uL (3.80-5.40); RDW 12.3 % (11.5-15.5)
[2019-05-12 04:17] LABS: ALT 89 U/L (9-52); AST 135 U/L (14-36); African American GFR (CKD) >90 (>60 ml/min/1.73 sqM); Albumin 3.1 g/dL (3.5-5.0); Alkaline Phosphatase 68 U/L (38-126); Anion Gap 7 mmol/L; Blood Urea Nitrogen 15 mg/dL (7-17); Calcium 8.6 mg/dL (8.4-10.2); Carbon Dioxide 22 mmol/L (22-30); Chloride 109 mmol/L (98-107); Glucose 82 mg/dL (74-99); Potassium 4.1 mmol/L (3.5-5.1); Sodium 138 mmol/L (137-145); Total Bilirubin 0.6 mg/dL (0.2-1.3); Total Protein 5.8 g/dL (6.3-8.2)
[2019-05-12] MEDS: NITROGLYCERIN SL TABS 0.4 MG TAB SUBLINGUAL PRN (07:10)
[2019-05-12] MEDS: traMADol-ACETAMINOP 37.5-325MG 1 EACH TAB PO PRN ×2 (07:30→20:53)
[2019-05-12] MEDS: LORATADINE 10 MG TAB PO PRN (07:30)
[2019-05-12] MEDS: ISOSORBIDE MONONITRATE ER 30 MG TAB.ER.24H PO SCH (09:21)
[2019-05-12] MEDS: FAMOTIDINE 20 MG TAB PO SCH (09:21)
[2019-05-12] MEDS: METOPROLOL TARTRATE 50 MG TAB PO SCH ×2 (09:21→20:51)
[2019-05-12] MEDS: CLOPIDOGREL 75 MG TAB PO SCH (09:21)
[2019-05-12] MEDS: ASPIRIN 81 MG PO SCH (09:22)
[2019-05-12] MEDS: LISINOPRIL 5 MG TAB PO SCH (09:22)
--- NOTE | 2019-05-12 09:29 | P.PN ---
Subjective Progress Note Date: 05/12/19 This is a 73-year-old female patient of Dr. Sanchez. Patient presents with complaints of chest pain. Patient reports the chest pain woke her up from her sleep last night was described as Center chest pain that radiated down both arms. Patient does have a past medical history of previous coronary artery bypass graft surgery approximately 9 years ago. Additional medical history includes Reynauds, back pain and ex-smoker. Chest x-ray completed showing mild lower lung atelectasis or developing infiltrate. EKG completed showing sinus rhythm with marked sinus arrhythmia. Patient having elevated troponin 0.126 and 3.860. Patient started on heparin drip cardiology service consulted planning cardiac catheterization today. At this time reporting improvement with chest pain. Patient denies shortness breath. Patient denies cough. Patient denies nausea vomiting or diarrhea. Patient denies any urinary burning or frequency. Repeat chest x-ray has been ordered for a.m. On 05/11/2019 patient is alert and oriented 3. Patient currently up brushing teeth in bathroom. Patient did undergo cardiac catheterization yesterday without intervention per cardiology services JT echo to be completed today. Discussed with nursing staff patient will be kept for monitoring per cardiology. At this time patient reports she is still short of breath but denies any chest pain. Patient denies any nausea vomiting or diarrhea. Patient denies any urinary burning or frequency. Repeat chest x-ray was completed this a.m. showing no acute process. On 05/12/2019 patient's alert and oriented 3. Patient reports she had increased chest pain last night was found to be in A. fib with RVR per nursing staff. Per cardiology patient was started on heparin drip and given amiodarone. Patient did convert back to sinus rhythm. At the time patient denies chest pain or shortness of breath. Patient denies nausea vomiting or diarrhea. Patient denies any urinary burning or frequency Objective - Vital Signs Vital signs: Vital Signs Temp 97.7 F 05/12/19 09:00 Pulse 70 05/12/19 09:00 Resp 13 05/12/19 09:00 BP 130/75 05/12/19 09:00 Pulse Ox 97 05/12/19 09:00 Intake & Output 05/11/19 05/12/19 05/12/19 18:59 06:59 18:59 Intake Total 0 280 Output Total 0 Balance 0 280 Weight 51.2 kg Intake: IV 0 180 Sodium Chloride 0.9% 1, 0 180 000 ml @ 90 mls/hr IV . Q11H7M [facility] Rx#:[id number] Oral 100 Output: Urine 0 Other: Voiding Method Bedside Commode Bedside Commode # Voids 1 1 - Exam Head normocephalic Neck supple Lungs clear to auscultation bilaterally no wheezing or crackles Heart regular rate and rhythm S1-S2, no rub or gallop Abdomen is soft nontender nondistended positive bowel sounds no hepa tosplenomegaly Extremities no edema Neuro alert and orientated to 3 - Labs CBC & Chem 7: 05/12/19 03:42 05/12/19 03:42 Labs: Abnormal Lab Results - Last 24 Hours (Table) 05/12/19 05/12/19 05/12/19 Range/Units 03:42 03:42 03:42 RBC 3.74 L (3.80-5.40) m/uL APTT 50.8 H (22.0-30.0) sec Chloride 109 H (98-107) mmol/L AST 135 H (14-36) U/L ALT 89 H (9-52) U/L Total Protein 5.8 L (6.3-8.2) g/dL Albumin 3.1 L (3.5-5.0) g/dL Assessment and Plan Assessment: 1. Chest pain related to non-ST elevated OR. Troponins elevated at 0.126 and 3.860. EKG completed showing sinus rhythm with marked sinus arrhythmia. Cardiac cath completed showing severe triple-vessel coronary artery disease with subtotally occluded distal left main. Per cardiology symptoms may be related to the acute total occlusion of the distal left main per cardiology recommended maximization of her medical therapy and reevaluation of mitral regurg on 2Decho. 2-D echo completed showing EF between 40 and 45% with severe mitral regurg. 2. History of coronary artery bypass graft surgery 9 years prior 3. A. fib with RVR. Patient was started on amiodarone and started on heparin drip per cardiology. Patient has since converted 3. Ex-smoker 4. essential hypertension 5. Chronic back pain 6. History of reynauds 7. Hypothyroidism. Home meds resumed 8. Hyperlipidemia. I performed an examination of the patient and discussed their management with the Nurse Practitioner. I have reviewed the Nurse Practitioner's notes and agree with the documented findings and plan of care
[2019-05-12] MEDS: RANOLAZINE 500 MG TAB.ER.12H PO SCH (09:31)
[2019-05-12] MEDS: ATORVASTATIN 40 MG TAB PO SCH (09:31)
[2019-05-12] MEDS ORDERED: AMIODARONE 360 MG in DEXTROSE 5% IN WATER 200 ML IV ONE ×2 (12:44)
--- NOTE | 2019-05-12 13:01 | P.PN ---
Subjective This is Gracie Gaxiola PA-C dictating a progress note on this patient The patient was interviewed and examined by me as well as by Dr. Suarez Case discussed with Dr. Suarez and he agrees with the plan of care IMPRESSION / ASSESSMENT: Atrial fibrillation with RVR, on amiodarone and heparin, currently in sinus rhythm Non-Q-wave CT status post coronary angiogram showing severe multivessel coronary artery disease, medical management recommended Ischemic cardiomyopathy Coronary artery disease status post CABG Severe mitral regurgitation Hypertension Dyslipidemia Liver enzymes elevated, possibly related to hypoperfusion PLAN: Continue with IV amiodarone, convert to oral amiodarone tomorrow, 200 mg twice a day CHADS VASC score at least 4 for her age, female, hypertension, CAD, anticoagulation indicated, start eliquis 2.5 mg twice a day since her weight is below 60 kg and she is also on Plavix, may stop heparin 6 hours after starting eliquis Stop Ranexa to avoid QT prolongation with amiodarone Start oral Lasix 20 mg Continue with dual antiplatelet therapy, atorvastatin, metoprolol, and lisinopril well as Imdur Continue to maximize medical management of CAD as tolerated Liver enzymes elevated, repeat tomorrow HPI/interval history Patient is a 73-year-old female with CAD status post CABG who presented with complaints of chest discomfort. She had an abnormal EKG as well as elevated troponins and was taken for coronary angiography which showed severe triple- vessel disease, subtotally occluded distal left main, occluded SVG to obtuse marginal and distal HERNANDEZ graft. She is being treated medically. Last night she went into atrial fibrillation and was started on IV amiodarone and heparin. When she went into atrial fibrillation she experienced chest discomfort that was similar to the discomfort that brought her in. She had another episode of chest discomfort this morning which occurred while she was in sinus rhythm. Now she does not have any chest discomfort but does have some shortness of breath. She has been walking the hallways without any dizziness or lightheadedness. EXAMINATION Temperature 97.7F, pulse 70, respirations 13, blood pressure 130/70 75, oxygen saturation 97% on room air Patient seen and examined sitting in her chair, no acute distress Lungs with few crackles at the bases Heart is regular rate and rhythm, systolic murmur appreciated at the apex consistent with mitral regurgitation No lower extremity edema No elevated JVD noted REVIEW OF LABS, ECG Bedside telemetry reveals sinus rhythm WBC 6.0 hemoglobin 12.5, platelets 170, potassium 4.1, BUN 15, creatinine 0.6, AST 135, ALT 89 Objective - Vital Signs Vital signs: Vital Signs Temp 97.7 F 05/12/19 09:00 Pulse 82 05/12/19 10:25 Resp 13 05/12/19 09:00 BP 122/52 05/12/19 10:25 Pulse Ox 98 05/12/19 10:25 Intake & Output 05/11/19 05/12/19 05/12/19 18:59 06:59 18:59 Intake Total 0 280 Output Total 0 Balance 0 280 Weight 51.2 kg Intake: IV 0 180 Sodium Chloride 0.9% 1, 0 180 000 ml @ 90 mls/hr IV . Q11H7M [facility] Rx#:[id number] Oral 100 Output: Urine 0 Other: Voiding Method Bedside Commode Bedside Commode Bedside Commode # Voids 1 1 - Labs CBC & Chem 7: 05/12/19 03:42 05/12/19 03:42 Labs: Abnormal Lab Results - Last 24 Hours (Table) 05/12/19 05/12/19 05/12/19 Range/Units 03:42 03:42 03:42 RBC 3.74 L (3.80-5.40) m/uL APTT 50.8 H (22.0-30.0) sec Chloride 109 H (98-107) mmol/L AST 135 H (14-36) U/L ALT 89 H (9-52) U/L Total Protein 5.8 L (6.3-8.2) g/dL Albumin 3.1 L (3.5-5.0) g/dL
[2019-05-12] MEDS: APIXABAN 2.5 MG TABLET PO SCH ×2 (13:20→21:00)
[2019-05-12] MEDS: AMIODARONE 300 MG in DEXTROSE 5% IN WATER 250 ML IV SCH ×2 (19:01)
[2019-05-12] MEDS ORDERED: FUROSEMIDE 20 MG TAB PO STA (19:45)
[2019-05-13 04:49] LABS: Basophils # (A) 0.1 k/uL (0-0.2); Basophils % (A) 1 %; Eosinophils # (A) 0.3 k/uL (0-0.7); Eosinophils % (A) 4 %; HCT 40.9 % (34.0-46.0); HGB 13.2 gm/dL (11.4-16.0); Lymphocytes # (A) 1.3 k/uL (1.0-4.8); Lymphocytes % (A) 22 %; MCH 32.1 pg (25.0-35.0); MCHC 32.2 g/dL (31.0-37.0); MCV 99.7 fL (80.0-100.0); Monocytes # (A) 0.5 k/uL (0-1.0); Monocytes % (A) 8 %; Neutrophils # (A) 3.7 k/uL (1.3-7.7); Neutrophils % (A) 62 %; Platelet Count 174 k/uL (150-450); RDW 13.4 % (11.5-15.5)
[2019-05-13 05:01] LABS: ALT 96 U/L (9-52); AST 120 U/L (14-36); African American GFR (CKD) >90 (>60 ml/min/1.73 sqM); Albumin 3.6 g/dL (3.5-5.0); Alkaline Phosphatase 72 U/L (38-126); Anion Gap 6 mmol/L; Blood Urea Nitrogen 17 mg/dL (7-17); Carbon Dioxide 27 mmol/L (22-30); Chloride 105 mmol/L (98-107); Glucose 91 mg/dL (74-99); Potassium 4.7 mmol/L (3.5-5.1); Sodium 138 mmol/L (137-145); Total Bilirubin 0.6 mg/dL (0.2-1.3); Total Protein 6.5 g/dL (6.3-8.2)
[2019-05-13] MEDS: AMIODARONE 300 MG in DEXTROSE 5% IN WATER 250 ML IV SCH ×2 (06:57)
[2019-05-13] MEDS: FAMOTIDINE 20 MG TAB PO SCH (08:58)
[2019-05-13] MEDS: CLOPIDOGREL 75 MG TAB PO SCH (08:58)
[2019-05-13] MEDS: ATORVASTATIN 40 MG TAB PO SCH (08:59)
[2019-05-13] MEDS: ISOSORBIDE MONONITRATE ER 30 MG TAB.ER.24H PO SCH (08:59)
[2019-05-13] MEDS: METOPROLOL TARTRATE 50 MG TAB PO SCH (08:59)
[2019-05-13] MEDS: APIXABAN 2.5 MG TABLET PO SCH ×2 (08:59→20:14)
[2019-05-13] MEDS: ASPIRIN 81 MG PO SCH (08:59)
[2019-05-13] MEDS: HEPARIN SOD,PORK IN 0.45% NACL 25,000 UNIT in 0.45% NACL 1 250ML.BAG IV SCH (09:02)
[2019-05-13] MEDS: traMADol-ACETAMINOP 37.5-325MG 1 EACH TAB PO PRN (09:14)
[2019-05-13] MEDS: LORATADINE 10 MG TAB PO PRN (09:14)
[2019-05-13] MEDS: LISINOPRIL 5 MG TAB PO SCH (10:11)
[2019-05-13] MEDS: FUROSEMIDE 20 MG TAB PO SCH (10:12)
[2019-05-13] MEDS: METOPROLOL TARTRATE 25 MG TAB PO SCH ×3 (10:12→20:18)
[2019-05-13] MEDS: AMIODARONE 200 MG TAB PO SCH ×2 (12:41→20:14)
--- NOTE | 2019-05-13 14:30 | P.PN ---
Subjective Progress Note Date: 05/13/19 This is a 73-year-old female patient of Dr. Sanchez. Patient presents with complaints of chest pain. Patient reports the chest pain woke her up from her sleep last night was described as Center chest pain that radiated down both arms. Patient does have a past medical history of previous coronary artery bypass graft surgery approximately 9 years ago. Additional medical history includes Reynauds, back pain and ex-smoker. Chest x-ray completed showing mild lower lung atelectasis or developing infiltrate. EKG completed showing sinus rhythm with marked sinus arrhythmia. Patient having elevated troponin 0.126 and 3.860. Patient started on heparin drip cardiology service consulted planning cardiac catheterization today. At this time reporting improvement with chest pain. Patient denies shortness breath. Patient denies cough. Patient denies nausea vomiting or diarrhea. Patient denies any urinary burning or frequency. Repeat chest x-ray has been ordered for a.m. On 05/11/2019 patient is alert and oriented 3. Patient currently up brushing teeth in bathroom. Patient did undergo cardiac catheterization yesterday without intervention per cardiology services JT echo to be completed today. Discussed with nursing staff patient will be kept for monitoring per cardiology. At this time patient reports she is still short of breath but denies any chest pain. Patient denies any nausea vomiting or diarrhea. Patient denies any urinary burning or frequency. Repeat chest x-ray was completed this a.m. showing no acute process. On 05/12/2019 patient's alert and oriented 3. Patient reports she had increased chest pain last night was found to be in A. fib with RVR per nursing staff. Per cardiology patient was started on heparin drip and given amiodarone. Patient did convert back to sinus rhythm. At the time patient denies chest pain or shortness of breath. Patient denies nausea vomiting or diarrhea. Patient denies any urinary burning or frequency On 05/13/2019 patient was seen and examined in the ICU she is alert and oriented 3 in no apparent distress she had an episode of shortness of breath and palpitation otherwise she denies any complaints there is no fever or chills no headache or dizziness no chest pain no nausea or vomiting no abdominal pain no diarrhea and no urinary symptoms Objective - Vital Signs Vital signs: Vital Signs Temp 97.5 F L 05/13/19 09:00 Pulse 63 05/13/19 13:00 Resp 21 07/20/19 13:00 BP 119/57 05/13/19 13:00 Pulse Ox 98 05/13/19 09:00 Intake & Output 05/12/19 05/13/19 05/13/19 18:59 06:59 18:59 Intake Total 33.3 610 360.416 Output Total 2460 Balance 33.3 -1850 360.416 Weight 50.4 kg Intake: IV 160 NS carrier 160 Intake, IV Titration 33.3 450 360.416 Amount Amiodarone 300 mg In 250 143.75 Dextrose 5% in Water 250 ml @ 0.5 MG/MIN 25 mls/hr IV .Q10H [facility] Rx#: [id number] Amiodarone 360 mg In 33.3 200 Dextrose 5% in Water 200 ml @ 1 MG/MIN 33.333 mls/ hr IV .Q6H [facility] Rx#: [id number] Heparin Sod,Pork in 0.45% 216.666 NaCl 25,000 unit In 0.45 % NaCl 1 250ml.bag @ 12 UNITS/KG/HR 5.988 mls/hr IV .Q24H [facility] Rx#: [id number] Output: Urine 2460 Other: Voiding Method Bedside Commode Bedside Commode # Voids 1 - Exam In general patient is alert and oriented 3 in no apparent distress Head normocephalic and atraumatic Neck supple no JVD no goiter Lungs clear to auscultation bilaterally no wheezing or crackles Heart regular rate and rhythm S1-S2, no rub or gallop Abdomen is soft nontender nondistended positive bowel sounds no hepatosplenomegaly Extremities no edema no cyanosis or clubbing Neuro no gross focal neurological deficit - Labs CBC & Chem 7: 05/13/19 00:17 05/13/19 04:26 Labs: Abnormal Lab Results - Last 24 Hours (Table) 05/13/19 05/13/19 Range/Units 04:26 04:26 APTT 44.5 H (22.0-30.0) sec AST 120 H (14-36) U/L ALT 96 H (9-52) U/L Assessment and Plan Plan: 1. Chest pain related to non-ST elevated NE. Troponins elevated at 0.126 and 3.860. EKG completed showing sinus rhythm with marked sinus arrhythmia. Cardiac cath completed showing severe triple-vessel coronary artery disease with subtotally occluded distal left main. Per cardiology symptoms may be related to the acute total occlusion of the distal left main per cardiology recommended maximization of her medical therapy and reevaluation of mitral regurg on 2Decho. 2-D echo completed showing EF between 40 and 45% with severe mitral regurg. 2. History of coronary artery bypass graft surgery 9 years prior 3. A. fib with RVR. Patient was started on amiodarone and started on heparin drip per cardiology. Patient has since converted 3. Ex-smoker 4. essential hypertension 5. Chronic back pain 6. History of reynauds 7. Hypothyroidism. Home meds resumed 8. Hyperlipidemia. Patient is on Lipitor will monitor liver enzymes very closely
--- NOTE | 2019-05-13 14:45 | P.PN ---
Subjective Progress Note Date: 05/13/19 This 73-year-old female with a history of ischemic heart diseaseas admitted with chest pain and was evaluated by cardiac catheterization. Patient was advised a maximum medical therapy. She was also found to have severe mitral regurgitation. Patient went into atrial fibrillation with a papular ventricular response. Patient was started on amiodarone. Patient converted back to sinus rhythm. She still complaining of shortness of breath intermittently. Otherwise not complaining of any chest pain Overall seems to be stable. She is on by mouth amiodarone and also Lasix. Ranexa was discontinued because of amiodarone which may prolong his QT interval. Increase activity as tolerated. if patient remains stable, possibly could be discharged home within next 24-48 hours. Objective - Vital Signs Vital signs: Vital Signs Temp 97.5 F L 05/13/19 09:00 Pulse 63 05/13/19 13:00 Resp 21 05/13/19 13:00 BP 119/57 05/13/19 13:00 Pulse Ox 98 05/13/19 09:00 Intake & Output 05/12/19 05/13/19 05/13/19 18:59 06:59 18:59 Intake Total 33.3 610 610.416 Output Total 2460 Balance 33.3 -1850 610.416 Weight 50.4 kg Intake: IV 160 NS carrier 160 Intake, IV Titration 33.3 450 360.416 Amount Amiodarone 300 mg In 250 143.75 Dextrose 5% in Water 250 ml @ 0.5 MG/MIN 25 mls/hr IV .Q10H [facility] Rx#: [id number] Amiodarone 360 mg In 33.3 200 Dextrose 5% in Water 200 ml @ 1 MG/MIN 33.333 mls/ hr IV .Q6H [facility] Rx#: [id number] Heparin Sod,Pork in 0.45% 216.666 NaCl 25,000 unit In 0.45 % NaCl 1 250ml.bag @ 12 UNITS/KG/HR 5.988 mls/hr IV .Q24H [facility] Rx#: [id number] Oral 250 Output: Urine 2460 Other: Voiding Method Bedside Commode Bedside Commode # Voids 1 - Exam GENERAL EXAM: Patient is alert and oriented and doesn't appear to be in any acute distress HEENT: Normocephalic. Normal reaction of pupils, equal size, normal range of extraocular motion. No erythema or exudates in the throat. NECK: No masses, no nuchal rigidity. CHEST: No chest wall deformity. LUNGS: [Equal air entry with no crackles or wheeze.] HEART: [S1 and S2 normal with no audible mumurs or gallops. Regular rhythm, femorals equal on both sides..] ABDOMEN: No hepatosplenomegaly, normal bowel sounds, no guarding or rigidity. SKIN: No rashes CENTRAL NERVOUS SYSTEM: No focal deficits. EXTREMITIES: [No cyanosis, clubbing or edema - Labs CBC & Chem 7: 05/13/19 00:17 05/13/19 04:26 Labs: Abnormal Lab Results - Last 24 Hours (Table) 05/13/19 05/13/19 Range/Units 04:26 04:26 APTT 44.5 H (22.0-30.0) sec AST 120 H (14-36) U/L ALT 96 H (9-52) U/L Assessment and Plan (1) Atrial fibrillation with rapid ventricular response Current Visit: Yes Status: Acute Code(s): I48.91 - UNSPECIFIED ATRIAL FIBRILLATION SNOMED Code(s): 207905094120241 (2) Non-STEMI (non-ST elevated myocardial infarction) Current Visit: Yes Status: Acute Code(s): I21.4 - NON-ST ELEVATION (NSTEMI) MYOCARDIAL INFARCTION SNOMED Code(s): 91852894 (3) Nonrheumatic mitral valve regurgitation Current Visit: Yes Status: Acute Code(s): I34.0 - NONRHEUMATIC MITRAL (VALVE) INSUFFICIENCY SNOMED Code(s): 720449601 (4) Essential hypertension Current Visit: Yes Status: Acute Code(s): I10 - ESSENTIAL (PRIMARY) HYPERTENSION SNOMED Code(s): 70968570 Plan: continue current medical therapy. Increase activity. Transferred to telemetry unit. He patient remains stable, possible discharge within next 24-48 hours
[2019-05-14] MEDS: traMADol-ACETAMINOP 37.5-325MG 1 EACH TAB PO PRN ×2 (02:57→23:48)
[2019-05-14] MEDS: LORATADINE 10 MG TAB PO PRN (02:58)
[2019-05-14] MEDS: METOPROLOL TARTRATE 50 MG TAB PO SCH (04:10)
[2019-05-14 05:39] LABS: Basophils % (A) 1 %; Eosinophils # (A) 0.2 k/uL (0-0.7); Eosinophils % (A) 4 %; HCT 39.7 % (34.0-46.0); HGB 13.3 gm/dL (11.4-16.0); Lymphocytes # (A) 1.2 k/uL (1.0-4.8); Lymphocytes % (A) 19 %; MCH 33.1 pg (25.0-35.0); MCHC 33.5 g/dL (31.0-37.0); MCV 98.9 fL (80.0-100.0); Mean Platelet Volume 7.8; Monocytes # (A) 0.6 k/uL (0-1.0); Monocytes % (A) 9 %; Neutrophils % (A) 65 %; Platelet Count 195 k/uL (150-450); RBC 4.01 m/uL (3.80-5.40); RDW 13.4 % (11.5-15.5); WBC 6.1 k/uL (3.8-10.6)
[2019-05-14 05:51] LABS: ALT 72 U/L (9-52); AST 75 U/L (14-36); African American GFR (CKD) >90 (>60 ml/min/1.73 sqM); Albumin 3.5 g/dL (3.5-5.0); Alkaline Phosphatase 67 U/L (38-126); Anion Gap 9 mmol/L; Blood Urea Nitrogen 19 mg/dL (7-17); Calcium 9.2 mg/dL (8.4-10.2); Carbon Dioxide 20 mmol/L (22-30); Chloride 108 mmol/L (98-107); Glucose 85 mg/dL (74-99); Potassium 3.9 mmol/L (3.5-5.1); Sodium 137 mmol/L (137-145); Total Bilirubin 0.6 mg/dL (0.2-1.3); Total Protein 6.3 g/dL (6.3-8.2)
[2019-05-14] MEDS: METOPROLOL TARTRATE 25 MG TAB PO SCH ×2 (08:39→17:50)
[2019-05-14] MEDS: FAMOTIDINE 20 MG TAB PO SCH (08:39)
[2019-05-14] MEDS: CLOPIDOGREL 75 MG TAB PO SCH (08:40)
[2019-05-14] MEDS: ATORVASTATIN 40 MG TAB PO SCH (08:41)
[2019-05-14] MEDS: LISINOPRIL 5 MG TAB PO SCH (08:41)
[2019-05-14] MEDS: APIXABAN 2.5 MG TABLET PO SCH ×2 (08:42→20:36)
[2019-05-14] MEDS: ASPIRIN 81 MG PO SCH (08:42)
[2019-05-14] MEDS: AMIODARONE 200 MG TAB PO SCH ×2 (08:42→20:36)
--- NOTE | 2019-05-14 09:21 | P.PN ---
Subjective Progress Note Date: 05/14/19 This 73-year-old female with a history of ischemic heart diseaseas admitted with chest pain and was evaluated by cardiac catheterization. Patient was advised a maximum medical therapy. She was also found to have severe mitral regurgitation. Patient went into atrial fibrillation with a papular ventricular response. Patient was started on amiodarone. Patient converted back to sinus rhythm. She still complaining of shortness of breath intermittently. Otherwise not complaining of any chest pain Overall seems to be stable. She is on by mouth amiodarone and also Lasix. Ranexa was discontinued because of amiodarone which may prolong his QT interval. Increase activity as tolerated. if patient remains stable, possibly could be discharged home within next 24-48 hours. 05/14/2019: Patient is feeling better. Denies any chest pain or shortness of breath. Tolerating activity. Patient is on amiodarone and seemed to be maintaining sinus rhythm. Her lungs are clear and heart is regular. Patient will stay on the current medical therapy. Patient could be discharged home. Follow-up with the Dr. López as an outpatient. Further evaluation of mitral regurgitation as an outpatient Objective - Vital Signs Vital signs: Vital Signs Temp 97.7 F 05/14/19 08:00 Pulse 63 05/14/19 08:00 Resp 14 05/14/19 08:00 BP 126/56 05/14/19 08:00 Pulse Ox 96 05/14/19 08:00 Intake & Output 05/13/19 05/14/19 05/14/19 18:59 06:59 18:59 Intake Total 610.416 Output Total 500 500 Balance 110.416 -500 Weight 51 kg Intake: Intake, IV Titration 360.416 Amount Amiodarone 300 mg In 143.75 Dextrose 5% in Water 250 ml @ 0.5 MG/MIN 25 mls/hr IV .Q10H [facility] Rx#: [id number] Heparin Sod,Pork in 0.45% 216.666 NaCl 25,000 unit In 0.45 % NaCl 1 250ml.bag @ 12 UNITS/KG/HR 5.988 mls/hr IV .Q24H [facility] Rx#: [id number] Oral 250 Output: Urine 500 500 Other: Voiding Method Bedside Commode Bedside Commode # Voids 1 1 - Exam GENERAL EXAM: Patient is alert and oriented and doesn't appear to be in any acute distress HEENT: Normocephalic. Normal reaction of pupils, equal size, normal range of extraocular motion. No erythema or exudates in the throat. NECK: No masses, no nuchal rigidity. CHEST: No chest wall deformity. LUNGS: [Equal air entry with no crackles or wheeze.] HEART: [S1 and S2 normal with no audible mumurs or gallops. Regular rhythm, femorals equal on both sides..] ABDOMEN: No hepatosplenomegaly, normal bowel sounds, no guarding or rigidity. SKIN: No rashes CENTRAL NERVOUS SYSTEM: No focal deficits. EXTREMITIES: [No cyanosis, clubbing or edema - Labs CBC & Chem 7: 05/14/19 05:13 05/14/19 05:13 Labs: Abnormal Lab Results - Last 24 Hours (Table) 05/14/19 Range/Units 05:13 Chloride 108 H (98-107) mmol/L Carbon Dioxide 20 L (22-30) mmol/L BUN 19 H (7-17) mg/dL AST 75 H (14-36) U/L ALT 72 H (9-52) U/L Assessment and Plan (1) Atrial fibrillation with rapid ventricular response Current Visit: Yes Status: Acute Code(s): I48.91 - UNSPECIFIED ATRIAL FIBRILLATION SNOMED Code(s): 886258626312683 (2) Non-STEMI (non-ST elevated myocardial infarction) Current Visit: Yes Status: Acute Code(s): I21.4 - NON-ST ELEVATION (NSTEMI) MYOCARDIAL INFARCTION SNOMED Code(s): 87171013 (3) Nonrheumatic mitral valve regurgitation Current Visit: Yes Status: Acute Code(s): I34.0 - NONRHEUMATIC MITRAL (VALVE) INSUFFICIENCY SNOMED Code(s): 161588228 (4) Essential hypertension Current Visit: Yes Status: Acute Code(s): I10 - ESSENTIAL (PRIMARY) HYPERTENSION SNOMED Code(s): 07004701 Plan: Patient is clinically stable. Could be discharged home. Follow-up with Dr. López
[2019-05-14] MEDS: ISOSORBIDE MONONITRATE ER 30 MG TAB.ER.24H PO SCH (09:37)
[2019-05-14] MEDS: FUROSEMIDE 20 MG TAB PO SCH (09:37)
--- NOTE | 2019-05-14 10:46 | P.PN ---
Subjective Progress Note Date: 05/14/19 This is a 73-year-old female patient of Dr. Sanchez. Patient presents with complaints of chest pain. Patient reports the chest pain woke her up from her sleep last night was described as Center chest pain that radiated down both arms. Patient does have a past medical history of previous coronary artery bypass graft surgery approximately 9 years ago. Additional medical history includes Reynauds, back pain and ex-smoker. Chest x-ray completed showing mild lower lung atelectasis or developing infiltrate. EKG completed showing sinus rhythm with marked sinus arrhythmia. Patient having elevated troponin 0.126 and 3.860. Patient started on heparin drip cardiology service consulted planning cardiac catheterization today. At this time reporting improvement with chest pain. Patient denies shortness breath. Patient denies cough. Patient denies nausea vomiting or diarrhea. Patient denies any urinary burning or frequency. Repeat chest x-ray has been ordered for a.m. On 05/11/2019 patient is alert and oriented 3. Patient currently up brushing teeth in bathroom. Patient did undergo cardiac catheterization yesterday without intervention per cardiology services JT echo to be completed today. Discussed with nursing staff patient will be kept for monitoring per cardiology. At this time patient reports she is still short of breath but denies any chest pain. Patient denies any nausea vomiting or diarrhea. Patient denies any urinary burning or frequency. Repeat chest x-ray was completed this a.m. showing no acute process. On 05/12/2019 patient's alert and oriented 3. Patient reports she had increased chest pain last night was found to be in A. fib with RVR per nursing staff. Per cardiology patient was started on heparin drip and given amiodarone. Patient did convert back to sinus rhythm. At the time patient denies chest pain or shortness of breath. Patient denies nausea vomiting or diarrhea. Patient denies any urinary burning or frequency On 05/13/2019 patient was seen and examined in the ICU she is alert and oriented 3 in no apparent distress she had an episode of shortness of breath and palpitation otherwise she denies any complaints there is no fever or chills no headache or dizziness no chest pain no nausea or vomiting no abdominal pain no diarrhea and no urinary symptoms On 05/14/2019 patient is alert and oriented 3. Heart rate well-controlled. Patient has been cleared for discharge from cardiology but per nursing staff patient does not have medication coverage and will require to stay until tomorrow for case management to provide assistance. At this time patient denies chest pain or shortness of breath. Patient denies nausea vomiting or diarrhea. Patient denies any urinary burning or frequency Objective - Vital Signs Vital signs: Vital Signs Temp 97.7 F 05/14/19 08:00 Pulse 63 05/14/19 08:00 Resp 14 05/14/19 08:00 BP 126/56 05/14/19 08:00 Pulse Ox 96 05/14/19 08:00 Intake & Output 05/13/19 05/14/19 05/14/19 18:59 06:59 18:59 Intake Total 610.416 Output Total 500 500 Balance 110.416 -500 Weight 51 kg Intake: Intake, IV Titration 360.416 Amount Amiodarone 300 mg In 143.75 Dextrose 5% in Water 250 ml @ 0.5 MG/MIN 25 mls/hr IV .Q10H [facility] Rx#: [id number] Heparin Sod,Pork in 0.45% 216.666 NaCl 25,000 unit In 0.45 % NaCl 1 250ml.bag @ 12 UNITS/KG/HR 5.988 mls/hr IV .Q24H [facility] Rx#: [id number] Oral 250 Output: Urine 500 500 Other: Voiding Method Bedside Commode Bedside Commode Bedside Commode # Voids 1 1 - Exam Head normocephalic Neck supple Lungs clear to auscultation bilaterally no wheezing or crackles Heart regular rate and rhythm S1-S2, no rub or gallop Abdomen is soft nontender nondistended positive bowel sounds no hepatosplenomegaly Extremities no edema Neuro alert and orientated to 3 - Labs CBC & Chem 7: 05/14/19 05:13 05/14/19 05:13 Labs: Abnormal Lab Results - Last 24 Hours (Table) 05/14/19 Range/Units 05:13 Chloride 108 H (98-107) mmol/L Carbon Dioxide 20 L (22-30) mmol/L BUN 19 H (7-17) mg/dL AST 75 H (14-36) U/L ALT 72 H (9-52) U/L Assessment and Plan Assessment: 1. Chest pain related to non-ST elevated [place]. Troponins elevated at 0.126 and 3.860. EKG completed showing sinus rhythm with marked sinus arrhythmia. Cardiac cath completed showing severe triple-vessel coronary artery disease with subtotally occluded distal left main. Per cardiology symptoms may be related to the acute total occlusion of the distal left main per cardiology recommended maximization of her medical therapy and reevaluation of mitral regurg on 2Decho. 2-D echo completed showing EF between 40 and 45% with severe mitral regurg. 2. History of coronary artery bypass graft surgery 9 years prior 3. A. fib with RVR. Patient was started on amiodarone and started on heparin drip per cardiology. Patient has since converted 3. Ex-smoker 4. essential hypertension 5. Chronic back pain 6. History of reynauds 7. Hypothyroidism. Home meds resumed 8. Hyperlipidemia. Slightly elevated liver enzymes will continue to monitor Plan for DC home tomorrow Case management consult for medication coverage I performed an examination of the patient and discussed their management with jamaica miller Nurse Practitioner. I have reviewed the Nurse Practitioner's notes and agree with the documented findings and plan of care
[2019-05-15 00:11] LABS: Glucose,Whole Blood 100 mg/dL (75-99)
[2019-05-15] MEDS: METOPROLOL TARTRATE 25 MG TAB PO SCH (00:55)
[2019-05-15 04:49] LABS: Basophils % (A) 1 %; Eosinophils # (A) 0.2 k/uL (0-0.7); Eosinophils % (A) 4 %; HCT 39.6 % (34.0-46.0); HGB 12.7 gm/dL (11.4-16.0); Lymphocytes # (A) 1.3 k/uL (1.0-4.8); Lymphocytes % (A) 24 %; MCH 31.8 pg (25.0-35.0); MCV 99.5 fL (80.0-100.0); Mean Platelet Volume 7.2; Monocytes # (A) 0.5 k/uL (0-1.0); Monocytes % (A) 9 %; Neutrophils # (A) 3.3 k/uL (1.3-7.7); Neutrophils % (A) 59 %; Platelet Count 194 k/uL (150-450); RBC 3.98 m/uL (3.80-5.40); RDW 12.4 % (11.5-15.5); WBC 5.5 k/uL (3.8-10.6)
[2019-05-15 04:56] LABS: ALT 81 U/L (9-52); AST 83 U/L (14-36); African American GFR (CKD) >90 (>60 ml/min/1.73 sqM); Albumin 3.4 g/dL (3.5-5.0); Alkaline Phosphatase 62 U/L (38-126); Anion Gap 9 mmol/L; Blood Urea Nitrogen 22 mg/dL (7-17); Calcium 8.9 mg/dL (8.4-10.2); Carbon Dioxide 20 mmol/L (22-30); Chloride 109 mmol/L (98-107); Glucose 83 mg/dL (74-99); Potassium 3.7 mmol/L (3.5-5.1); Sodium 138 mmol/L (137-145); Total Bilirubin 0.7 mg/dL (0.2-1.3); Total Protein 6.2 g/dL (6.3-8.2)
[2019-05-15] MEDS ORDERED: METOPROLOL TARTRATE 25 MG TAB PO SCH (09:00)
[2019-05-15] MEDS: ASPIRIN 81 MG PO SCH (09:43)
[2019-05-15] MEDS: AMIODARONE 200 MG TAB PO SCH (09:43)
[2019-05-15] MEDS: APIXABAN 2.5 MG TABLET PO SCH (09:43)
[2019-05-15] MEDS: FUROSEMIDE 20 MG TAB PO SCH (09:43)
[2019-05-15] MEDS: ISOSORBIDE MONONITRATE ER 30 MG TAB.ER.24H PO SCH (09:43)
[2019-05-15] MEDS: LISINOPRIL 5 MG TAB PO SCH (09:43)
[2019-05-15] MEDS: ATORVASTATIN 40 MG TAB PO SCH (09:44)
[2019-05-15] MEDS: CLOPIDOGREL 75 MG TAB PO SCH (09:44)
[2019-05-15] MEDS: FAMOTIDINE 20 MG TAB PO SCH (09:44)
[2019-05-15] MEDS: traMADol-ACETAMINOP 37.5-325MG 1 EACH TAB PO PRN (10:28)
--- NOTE | 2019-05-15 10:28 | PN ---
PROGRESS NOTE Christin is a 73-year-old lady who is admitted to hospital with [id number] elevation MT and underwent cardiac catheterization and advised medical therapy. At the time of my evaluation this morning, she is doing well and is free of symptoms. The patient had an episode of atrial fibrillation for which she was started on amiodarone. PHYSICAL EXAMINATION: On exam, patient is comfortable at rest. Vital signs are stable. Chest exam reveals good air entry bilaterally. Heart exam reveals first and second heart sounds. No gallop. Abdomen is soft. Examination of extremities did not reveal any edema. Peripheral pulses are felt. LABS: Labs show that the hemoglobin is 12.7, platelet count is 190. Potassium is 3.7. Creatinine is 0.6. AST, ALT are mildly elevated but they are improving compared to where they were. ASSESSMENT: 1. Non ST-segment elevation myocardial infarction, status post catheterization and was advised medical therapy. 2. Paroxysmal atrial fibrillation, currently in sinus rhythm. The patient is on optimal medical therapy. She can be discharged home and arrange follow up in our office within a week. MMODL / IJN: [id number] /
--- NOTE | 2019-05-15 15:38 | P.DS ---
Providers Date of admission: 05/10/19 03:01 Expected date of discharge: 05/15/19 Attending physician: Ada Truong Consults: 05/10/19 03:01 Consult Physician Routine Consulting Provider: Santy López Consult Reason/Comments: Chest pain. NSTEMI. Do you want consulting provider notified?: Yes Primary care physician: Katherin Sanchez Hospital Course: Discharge diagnosis 1. Chest pain related to non-ST elevated PA. Troponins elevated at 0.126 and 3.860. EKG completed showing sinus rhythm with marked sinus arrhythmia. Cardiac cath completed showing severe triple-vessel coronary artery disease with subtotally occluded distal left main. Per cardiology symptoms may be related to the acute total occlusion of the distal left main per cardiology recommended maximization of her medical therapy and reevaluation of mitral regurg on 2Decho. 2-D echo completed showing EF between 40 and 45% with severe mitral regurg. Discussed with cardiology [employer] Dr. Tello should to be discharged on new medications of lisinopril, Lasix, Lopressor, Plavix, eliquis, amiodarone and aspirin. 2. History of coronary artery bypass graft surgery 9 years prior 3. A. fib with RVR. Patient was started on amiodarone and started on heparin drip per cardiology. Patient has since converted. Started on eliquis per cardiology amiodarone and Lopressor also added per cardiology. Patient has been cleared for discharge from cardiology standpoint. Case management provided 1 month free samples of eliquis 3. Ex-smoker 4. essential hypertension 5. Chronic back pain 6. History of reynauds 7. Hypothyroidism. Home meds resumed 8. Hyperlipidemia. Slightly elevated liver enzymes will continue to monitor Hospital course This is a 73-year-old female patient of Dr. Sanchez. Patient presents with complaints of chest pain. Patient reports the chest pain woke her up from her sleep last night was described as Center chest pain that radiated down both arms. Patient does have a past medical history of previous coronary artery bypass graft surgery approximately 9 years ago. Additional medical history includes Reynauds, back pain and ex-smoker. Chest x-ray completed showing mild lower lung atelectasis or developing infiltrate. EKG completed showing sinus rhythm with marked sinus arrhythmia. Patient having elevated troponin 0.126 and 3.860. Patient started on heparin drip cardiology service consulted planning cardiac catheterization today. At this time reporting improvement with chest pain. Patient denies shortness breath. Patient denies cough. Patient denies nausea vomiting or diarrhea. Patient denies any urinary burning or frequency. Repeat chest x-ray has been ordered for a.m. On 05/11/2019 patient is alert and oriented 3. Patient currently up brushing teeth in bathroom. Patient did undergo cardiac catheterization yesterday without intervention per cardiology services JT echo to be completed today. Discussed with nursing staff patient will be kept for monitoring per cardiology. At this time patient reports she is still short of breath but denies any chest pain. Patient denies any nausea vomiting or diarrhea. Patient denies any urinary burning or frequency. Repeat chest x-ray was completed this a.m. showing no acute process. On 05/12/2019 patient's alert and oriented 3. Patient reports she had increased chest pain last night was found to be in A. fib with RVR per nursing staff. Per cardiology patient was started on heparin drip and given amiodarone. Patient did convert back to sinus rhythm. At the time patient denies chest pain or shortness of breath. Patient denies nausea vomiting or diarrhea. Patient denies any urinary burning or frequency On 05/13/2019 patient was seen and examined in the ICU she is alert and oriented 3 in no apparent distress she had an episode of shortness of breath and palpitation otherwise she denies any complaints there is no fever or chills no headache or dizziness no chest pain no nausea or vomiting no abdominal pain no diarrhea and no urinary symptoms On 05/14/2019 patient is alert and oriented 3. Heart rate well-controlled. Phil goldstein has been cleared for discharge from cardiology but per nursing staff patient does not have medication coverage and will require to stay until tomorrow for case management to provide assistance. At this time patient denies chest pain or shortness of breath. Patient denies nausea vomiting or diarrhea. Patient denies any urinary burning or frequency On 05/15/2019 patient is alert and oriented 3 patient is very eager to go home awaiting case management to finalize prescription coverage. Patient's Lopressor has been decreased due to bradycardia per cardiology. Discussed case with shawn Tello patient to Start on eliquis 2.5 twice a day, baby aspirin and Plavix upon discharge along with all new cardiac meds including lisinopril Lasix amiodarone and Lopressor. Indigent fund arranged per case management one month free samples of nash[place]jelani provided her coupon for case management. At this time patient denies chest pain or shortness of breath. Patient denies nausea vomiting or diarrhea. Patient denies urinary burning or frequency. I performed an examination of the patient and discussed their management with the Nurse Practitioner. I have reviewed the Nurse Practitioner's notes and agree with the documented findings and plan of care Patient Condition at Discharge: Stable Plan - Discharge Summary Discharge Rx Participant: No New Discharge Prescriptions: New Aspirin 81 mg PO DAILY 30 Days #30 chew Amiodarone [Cordarone] 200 mg PO BID 30 Days #60 tab Apixaban [Eliquis] 2.5 mg PO BID 30 Days #60 tablet Furosemide [Lasix] 20 mg PO DAILY 30 Days #30 tab Atorvastatin [Lipitor] 40 mg PO DAILY 30 Days #30 tab Metoprolol Tartrate [Lopressor] 12.5 mg PO BID 30 Days #60 tab Clopidogrel [Plavix] 75 mg PO DAILY 30 Days #30 tab Lisinopril [Zestril] 5 mg PO DAILY 30 Days #30 tab Continue Isosorbide Mononitrate ER [Imdur] 30 mg PO DAILY Thyroid,Pork [[place] Thyroid] 60 mg PO DAILY traMADol HCL/ACETAMINOPHEN [Ultracet 37.5-325] 1 tab PO BID PRN PRN Reason: Pain Discontinued Simvastatin [Zocor] 40 mg PO HS Ezetimibe [Zetia] 10 mg PO DAILY Discharge Medication List Isosorbide Mononitrate ER [Imdur] 30 mg PO DAILY 08/24/15 [History] Thyroid,Pork [[place] Thyroid] 60 mg PO DAILY 08/24/15 [History] traMADol HCL/ACETAMINOPHEN [Ultracet 37.5-325] 1 tab PO BID PRN 05/10/19 [History] Amiodarone [Cordarone] 200 mg PO BID 30 Days #60 tab 05/15/19 [Rx] Apixaban [Eliquis] 2.5 mg PO BID 30 Days #60 tablet 05/15/19 [Rx] Aspirin 81 mg PO DAILY 30 Days #30 chew 05/15/19 [Rx] Atorvastatin [Lipitor] 40 mg PO DAILY 30 Days #30 tab 05/15/19 [Rx] Clopidogrel [Plavix] 75 mg PO DAILY 30 Days #30 tab 05/15/19 [Rx] Furosemide [Lasix] 20 mg PO DAILY 30 Days #30 tab 05/15/19 [Rx] Lisinopril [Zestril] 5 mg PO DAILY 30 Days #30 tab 05/15/19 [Rx] Metoprolol Tartrate [Lopressor] 12.5 mg PO BID 30 Days #60 tab 05/15/19 [Rx] Follow up Appointment(s)/Referral(s): Katherin Sanchez MD [Primary Care Provider] - 1-2 days Santy López MD [STAFF PHYSICIAN] - 1 Week Ambulatory/Diagnostic Orders: Comprehensive Metabolic Panel [LAB.AMB] Time Frame: 2 Days, Location: None Selected Activity/Diet/Wound Care/Special Instructions: activity as tolerated Diet heart healthy Patient to call to see if she qualify for Free samples of Eliquis for 2 years. Discharge Disposition: HOME SELF-CARE
[2019-05-15 16:56] VITALS: BP 118/63; PULSE 67; RESP 14; TEMP 97.8
[2019-05-15] MEDS ORDERED: METOPROLOL TARTRATE 12.5 MG TAB PO SCH (21:00)
== END 2019-05-15 17:12 | disposition home or self-care (01) | DRG 281 ==
LOC: EC 01:22 → 2SICU 03:01
PROVIDERS: ADMIT Internal Medicine; ATTEND Internal Medicine
PROC: B2131ZZ Fluoroscopy of Multiple Coronary Artery Bypass Grafts using Low Osmolar Contrast (ICD-10-PCS; 2019-05-10)
PROC: B2111ZZ Fluoroscopy of Multiple Coronary Arteries using Low Osmolar Contrast (ICD-10-PCS; 2019-05-10)
PROC: B2181ZZ Fluoroscopy of Left Internal Mammary Bypass Graft using Low Osmolar Contrast (ICD-10-PCS; 2019-05-10)
PROC: B2151ZZ Fluoroscopy of Left Heart using Low Osmolar Contrast (ICD-10-PCS; 2019-05-10)
PROC: 4A023N7 Measurement of Cardiac Sampling and Pressure, Left Heart, Percutaneous Approach (ICD-10-PCS; principal; 2019-05-10 11:19)
DX: I21.4 Non-ST elevation (NSTEMI) myocardial infarction (principal); J98.11 Atelectasis; I25.810 Atherosclerosis of coronary artery bypass graft(s) without angina pectoris; I45.81 Long QT syndrome; M35.00 Sjogren syndrome, unspecified; I25.82 Chronic total occlusion of coronary artery; I48.0 Paroxysmal atrial fibrillation; I34.0 Nonrheumatic mitral (valve) insufficiency; R00.1 Bradycardia, unspecified; I25.5 Ischemic cardiomyopathy; E03.9 Hypothyroidism, unspecified; I25.10 Atherosclerotic heart disease of native coronary artery without angina pectoris; I10 Essential (primary) hypertension; I73.00 Raynaud's syndrome without gangrene; G89.29 Other chronic pain; M54.9 Dorsalgia, unspecified; E78.5 Hyperlipidemia, unspecified; Z79.899 Other long term (current) drug therapy; Z95.1 Presence of aortocoronary bypass graft; Z87.891 Personal history of nicotine dependence; Z98.1 Arthrodesis status; Z88.5 Allergy status to narcotic agent
CPT/HCPCS: 36415; 71046; 80053; 80061; 83735; 84484; 85025; 85610; 85730; 93306; 93459; 96365; 96376; 99285

== ENCOUNTER → 2019-06-12 | Outpatient (CLI) | payer MEDICARE, BC ==
--- NOTE | 2019-06-13 10:54 | MM ---
Reason for exam: screening (asymptomatic). Last mammogram was performed 1 year ago. History: Patient is postmenopausal. Benign left mammotome panel of the left breast, April 11, 2007. Benign left mammotome panel of the left breast, February 01, 2006. Core biopsy of the left breast. Core biopsy of the right breast. Excisional biopsy of the right breast. Physical Findings: A clinical breast exam by your physician is recommended on an annual basis and results should be correlated with mammographic findings. MG 3D Screening Mammo W/Cad Bilateral CC and MLO view(s) were taken. Prior study comparison: June 08, 2018, bilateral MG 3d screening mammo w/cad. June 01, 2017, bilateral MG 3d screening mammo w/cad. The breast tissue is heterogeneously dense. This may lower the sensitivity of mammography. There are benign appearing round grouped calcifications in the right breast. Previous mammotome biopsy in the left breast x 2. There is no discrete abnormality. ASSESSMENT: Benign, BI-RAD 2 RECOMMENDATION: Routine screening mammogram of both breasts in 1 year.
== END | disposition home or self-care (01) ==
LOC: RADMAMWWP 12:54
PROVIDERS: ATTEND Family Medicine
DX: Z12.31 Encounter for screening mammogram for malignant neoplasm of breast (principal)
CPT/HCPCS: 77063; 77067

== ENCOUNTER 2019-07-14 20:58 | Inpatient (IN) | payer MEDICARE, BC ==
[2019-07-14] MEDS ORDERED: fentaNYL (PF) 50 MCG/ML 2 ML AMP IVP STA (21:47)
[2019-07-14] MEDS ORDERED: SODIUM CHLORIDE 0.9% 500 ML 500 ML IV STA (22:09)
[2019-07-14] MEDS ORDERED: HYDROmorphone 0.5 MG/0.5 ML SYRINGE IVP STA (22:11)
--- NOTE | 2019-07-14 22:33 | XR ---
EXAMINATION TYPE: XR chest 1V portable DATE OF EXAM: 07/14/2019 COMPARISON: 05/11/2019 HISTORY: Pain TECHNIQUE: Single frontal view of the chest is obtained. FINDINGS: There is no heart failure nor confluent pneumonic infiltrate. Costophrenic angles are cornelius r. There are sternal wires. Heart size is normal. IMPRESSION: No active cardiopulmonary disease. No change.
--- NOTE | 2019-07-14 22:35 | XR ---
EXAMINATION TYPE: XR Femur LT 1 View DATE OF EXAM: 07/14/2019 COMPARISON: NONE HISTORY: Hip pain after a fall TECHNIQUE: 2 views FINDINGS: There is comminuted acute intertrochanteric fracture left femur. There is mild coxa vera de formity. Knee joint appears anatomic. There are surgical clips along the medial thigh. IMPRESSION: Acute comminuted intertrochanteric fracture left femur.
--- NOTE | 2019-07-14 22:36 | XR ---
EXAMINATION TYPE: XR pelvis AP view DATE OF EXAM: 07/14/2019 COMPARISON: NONE HISTORY: Pain TECHNIQUE: Single view FINDINGS: Pelvic ring is intact. There is osteopenia. There is comminuted intertrochanteric fracture left femur. There is large fragment of the lesser troc hanter. IMPRESSION: Acute comminuted intertrochanteric fracture left femur.
--- NOTE | 2019-07-14 23:05 | CT ---
EXAMINATION TYPE: CT brain tawnya medel DATE OF EXAM: 07/14/2019 COMPARISON: None HISTORY: fall CT DLP: 1302.7 mGycm Automated exposure control for dose reduction was used. TECHNIQUE: CT scan of the head and cervical spine are performed without contrast. FINDINGS: There is mild cerebral cortical atrophy. There is no mass effect nor midline shift. There is no sign of intracranial hemorrhage. There is mild white matter periventricular hypodensity. The c alvarium is intact. There is no evidence of skull fracture. There is normal alignment of the vertebra. There is degenerative disc space narrowing at C4-5 C5-6 wi th spurring of the endplates. There is multilevel hypertrophic cervical facet arthropathy. The skull base is intact. There is no evidence of a fracture. I see no bony destructive process. IMPRESSION: Spondylotic cervical spine changes. No fracture. Cerebral atrophy. No acute intracranial abnormality.
[2019-07-14 23:25] LABS: Basophils % (A) 1 %; Eosinophils # (A) 0.1 k/uL (0-0.7); Eosinophils % (A) 1 %; HCT 34.4 % (34.0-46.0); HGB 11.1 gm/dL (11.4-16.0); Lymphocytes # (A) 0.7 k/uL (1.0-4.8); Lymphocytes % (A) 9 %; MCH 32.2 pg (25.0-35.0); MCHC 32.3 g/dL (31.0-37.0); MCV 99.6 fL (80.0-100.0); Mean Platelet Volume 7.3; Monocytes # (A) 0.6 k/uL (0-1.0); Monocytes % (A) 7 %; Neutrophils # (A) 6.3 k/uL (1.3-7.7); Neutrophils % (A) 80 %; Platelet Count 184 k/uL (150-450); RBC 3.45 m/uL (3.80-5.40); WBC 7.9 k/uL (3.8-10.6)
--- NOTE | 2019-07-14 23:31 | ED ---
General Adult HPI - General Chief complaint: Fall Stated complaint: Fall Time Seen by Provider: 07/14/19 21:45 Source: patient, family, EMS Mode of arrival: EMS Limitations: no limitations - History of Present Illness Initial comments: Dictation was produced using Prismatic dictation software. please excuse any grammatical, word or spelling errors. Chief Complaint: 73-year-old female brought in by EMS for left hip pain. History of Present Illness: He 73-year-old female she presents today with left hip pain. Patient states she misses that at home. She fell on her left side. After the fall patient immediately noted left hip pain. EMS was called. Patient was not ambulatory after the accident. Patient is on eliquis. She has a history of coronary artery bypass graft. She states she is on eliquis for this reason. Patient denies any numbness and paresthesias to the lower extremity. Patient did not hit her head. She has no neck pain or upper trimming pain. Has no other complaints at this time. The ROS documented in this emergency department record has been reviewed and confirmed by me. Those systems with pertinent positive or negative responses have been documented in the HPI. All other systems are other negative and/or noncontributory. PHYSICAL EXAM: General Impression: Alert and oriented x3, acute distress secondary to pain HEENT: Normocephalic atraumatic, extra-ocular movements intact, pupils equal and reactive to light bilaterally, mucous membranes moist. Cardiovascular: Heart regular rate and rhythm, S1&S2 audible, no murmurs, rubs or gallops Chest: Lungs clear to auscultation bilaterally, no rhonchi, no wheeze, no rales Abdomen: Bowel sounds present, abdomen soft, non-tender, non-distended, no organomegaly Musculoskeletal: Pulses present and equal in all extremities, no peripheral edema Shortened left lower extremity with external rotation Motor: no focal deficits noted Neurological: CN II-XII grossly intact, no focal motor or sensory deficits noted Skin: Intact with no visualized rashes Psych: Normal affect and mood ED course: 73-year-old female presents with left hip pain after fall. As upon arrival are within acceptable limits. Clinical presentation concerning for left hip fracture. Pelvis x-ray shows acute comminuted intertrochanteric fracture of the left femur. Laboratory evaluation obtained. Labs are grossly unremarkable. Computed tomography scan of the head and C-spine is unremarkable. Chest x-ray unremarkable. No pelvic fractures noted. Patient given IV analgesia. Discussed patient case with Dr. Gomez was went except patient's care. He requested we discussed patient case with Dr. Truong regards to medical management. Patient likely will not get surgery until Wednesday at the soonest. Patient ordered for diet. Medications were reviewed. Patient is on Lasix. Pending magnesium levels to evaluate for prolonged QT. Says Lasix no other med ications and patient's med list to cause prolonged QT. EKG interpretation: Ventricular rate 66, normal sinus rhythm, OK interval 150, QS 104, QTC 545. QT is prolonged at 545. - Related Data Home Medications Medication Instructions Recorded Confirmed Isosorbide Mononitrate ER [Imdur] 30 mg PO DAILY 08/24/15 07/14/19 Thyroid,Pork [[place] Thyroid] 60 mg PO DAILY 08/24/15 07/14/19 Metoprolol Tartrate [Lopressor] 12.5 mg PO BID 07/14/19 07/14/19 Previous Rx's Medication Instructions Recorded Amiodarone [Cordarone] 200 mg PO BID 30 Days #60 tab 05/15/19 Apixaban [Eliquis] 2.5 mg PO BID 30 Days #60 tablet 05/15/19 Aspirin 81 mg PO DAILY 30 Days #30 chew 05/15/19 Atorvastatin [Lipitor] 40 mg PO DAILY 30 Days #30 tab 05/15/19 Furosemide [Lasix] 20 mg PO DAILY 30 Days #30 tab 05/15/19 Lisinopril [Zestril] 5 mg PO DAILY 30 Days #30 tab 05/15/19 Allergies Allergy/AdvReac Type Severity Reaction Status Date / Time morphine Allergy Itching Verified 07/14/19 21:06 narcotics Allergy Unknown Uncoded 07/14/19 21:06 Review of Systems ROS Statement: Those systems with pertinent positive or pertinent negative responses have been documented in the HPI. ROS Other: All systems not noted in ROS Statement are negative. Past Medical History Past Medical History: Coronary Artery Disease (CAD), Hyperlipidemia, Hypertension, Myocardial Infarction ([place]) Additional Past Medical History / Comment(s): denys, richards, back pain, [place] 04/2019 History of Any Multi-Drug Resistant Organisms: None Reported Past Surgical History: Coronary Bypass/CABG, Heart Catheterization Additional Past Surgical History / Comment(s): back fusion approx 2008 Past Anesthesia/Blood Transfusion Reactions: No Reported Reaction Additional Past Anesthesia/Blood Transfusion Reaction / Comment(s): "takes longer to come out from anesthesia" Past Psychological History: No Psychological Hx Reported Smoking Status: Former smoker Past Alcohol Use History: Occasional Past Drug Use History: None Reported General Exam Limitations: no limitations Course Vital Signs 07/14/19 21:00 Temperature 97.9 F Pulse Rate 78 Respiratory 18 Rate Blood Pressure 139/70 O2 Sat by Pulse 97 Oximetry Medical Decision Making - Lab Data Result diagrams: 07/14/19 22:43 Lab Results 07/14/19 07/14/19 Range/Units 22:43 22:43 WBC 7.9 (3.8-10.6) k/uL RBC 3.45 L (3.80-5.40) m/uL Hgb 11.1 L (11.4-16.0) gm/dL Hct 34.4 (34.0-46.0) % MCV 99.6 (80.0-100.0) fL MCH 32.2 (25.0-35.0) pg MCHC 32.3 (31.0-37.0) g/dL RDW 13.0 (11.5-15.5) % Plt Count 184 (150-450) k/uL Neutrophils % 80 % Lymphocytes % 9 % Monocytes % 7 % Eosinophils % 1 % Basophils % 1 % Neutrophils # 6.3 (1.3-7.7) k/uL Lymphocytes # 0.7 L (1.0-4.8) k/uL Monocytes # 0.6 (0-1.0) k/uL Eosinophils # 0.1 (0-0.7) k/uL Basophils # 0.0 (0-0.2) k/uL PT 10.3 (9.0-12.0) sec INR 1.0 (<1.2) APTT 24.3 (22.0-30.0) sec Disposition Clinical Impression: Prolonged QT interval, Hip fracture Disposition: ADMITTED IP TO THIS [facility] Condition: Fair Referrals: Katherin Sanchez MD [Primary Care Provider] - 1-2 days Decision Time: 00:00
[2019-07-14 23:37] LABS: Partial Thromboplastin Time 24.3 sec (22.0-30.0); Prothrombin Time 10.3 sec (9.0-12.0)
[2019-07-15 00:16] LABS: Albumin 3.6 g/dL (3.5-5.0); Calcium 8.6 mg/dL (8.4-10.2); Potassium 3.8 mmol/L (3.5-5.1); Total Bilirubin 0.5 mg/dL (0.2-1.3); Total Protein 6.3 g/dL (6.3-8.2)
[2019-07-15] MEDS ORDERED: HYDROmorphone 0.5 MG/0.5 ML SYRINGE IVP STA (01:03)
[2019-07-15 01:07] LABS: Appearance,Urine Clear (Clear); Bilirubin,Urine Negative (Negative); Blood,Urine Negative (Negative); Color,Urine Yellow; Glucose,Urine (UA) Negative (Negative); Ketones,Urine 1+ (Negative); Leukocyte Esterase,Urine Negative (Negative); Nitrite,Urine Negative (Negative); Protein,Urine Trace (Negative); Specific Gravity,Urine 1.017 (1.001-1.035); Urobilinogen,Urine <2.0 mg/dL (<2.0)
[2019-07-15] MEDS: POTASSIUM CHLORIDE 10 MEQ in WATER FOR INJECTION 1 100ML.BAG IVPB SCH ×2 (01:14→04:15)
[2019-07-15] MEDS ORDERED: NALOXONE 0.4 MG/ML 1 ML VIAL IV PRN (02:22)
[2019-07-15] MEDS ORDERED: ACETAMINOPHEN TAB 325 MG TAB PO PRN (02:22)
[2019-07-15] MEDS: MAGNESIUM SULFATE-D5W PMX 1 GM in DEXTROSE/WATER 1 100ML.BAG IVPB SCH ×2 (02:24→03:48)
[2019-07-15] MEDS: SODIUM CHLORIDE 0.9% 1,000 ML IV SCH (04:16)
[2019-07-15] MEDS: HYDROmorphone 1 MG/ML 1 ML SYRINGE IVP PRN ×5 (05:34→21:39)
[2019-07-15] MEDS ORDERED: NITROGLYCERIN SL TABS 0.4 MG TAB SUBLINGUAL PRN (08:36)
[2019-07-15] MEDS ORDERED: NITROGLYCERIN OINT 1 INCH/GM PACKET TOPICAL STA (08:42)
[2019-07-15] MEDS ORDERED: DEXTROSE 10 % IN WATER 250 ML IV ONE (08:45)
[2019-07-15 08:46] LABS: Glucose,Whole Blood 52 mg/dL (75-99)
--- NOTE | 2019-07-15 09:00 | P.CRDCN ---
History of Present Illness Consult date: 07/15/19 History of present illness: This is a 70-year-old female with history of ischemic heart disease with a previous bypass surgery with the HERNANDEZ graft to the LAD, vein graft to the diagonal, vein grafts 2 to the 2 OM branches. Patient was admitted here in April of this area with the symptoms of unstable angina with positive troponin. Patient had a cardiac catheterization and was noted to have near total occlusion of the left main, total occlusion of the [place] circumflex and also right coronary artery distally. The HERNANDEZ graft to LAD is totally occluded. The vein graft to diagonal is patent. The vein graft to the one of the vein graft is totally occluded and the second one is patent. The diagonal graft provides blood supply to the LAD distribution with the retrograde flow to the circumflex and also to the RCA. Maximum medical therapy was advised at the time. She was also found to have moderate to severe mitral regurgitation. Since then patient has been seen as an outpatient. Now patient is admitted to the hospital with a fall and fracture of the hip. She developed chest pain this morning which is relieved with sublingual nitroglycerin. EKG showed ST depression in anterolateral leads. At the time of my examination the pain is mostly gone and she seemed to be comfortable. She is a 81 with Nitropaste and heparin and is being transferred to intensive care unit. Given that patient is having active angina, she becomes high risk candidate for the surgery. I'll continue maximal medical therapy for the next 24-48 hours. I will discuss with the Dr. López regarding further course of action. I will also repeat the echocardiogram and continue to monitor cardiac enzymes studies Review of Systems As per the chart Past Medical History Past Medical History: Coronary Artery Disease (CAD), Hyperlipidemia, Hypertension, Myocardial Infarction ([place]) Additional Past Medical History / Comment(s): samaria mcfarlane, back pain, [place] 04/2019 Last Myocardial Infarction Date:: 04/2019 History of Any Multi-Drug Resistant Organisms: None Reported Past Surgical History: Coronary Bypass/CABG, Heart Catheterization Additional Past Surgical History / Comment(s): back fusion approx 2008 Past Anesthesia/Blood Transfusion Reactions: No Reported Reaction Additional Past Anesthesia/Blood Transfusion Reaction / Comment(s): "takes longer to come out from anesthesia" Past Psychological History: No Psychological Hx Reported Smoking Status: Former smoker Past Alcohol Use History: Occasional Past Drug Use History: None Reported Medications and Allergies Home Medications Medication Instructions Recorded Confirmed Type Isosorbide Mononitrate ER [Imdur] 30 mg PO DAILY 08/24/15 07/14/19 History Thyroid,Pork [[place] Thyroid] 60 mg PO DAILY 08/24/15 07/14/19 History Amiodarone [Cordarone] 200 mg PO BID 30 Days #60 tab 05/15/19 07/14/19 Rx Apixaban [Eliquis] 2.5 mg PO BID 30 Days #60 tablet 05/15/19 07/14/19 Rx Aspirin 81 mg PO DAILY 30 Days #30 chew 05/15/19 07/14/19 Rx Atorvastatin [Lipitor] 40 mg PO DAILY 30 Days #30 tab 05/15/19 07/14/19 Rx Furosemide [Lasix] 20 mg PO DAILY 30 Days #30 tab 05/15/19 07/14/19 Rx Lisinopril [Zestril] 5 mg PO DAILY 30 Days #30 tab 05/15/19 07/14/19 Rx Metoprolol Tartrate [Lopressor] 12.5 mg PO BID 07/14/19 07/14/19 History Allergies Allergy/AdvReac Type Severity Reaction Status Date / Time morphine Allergy Itching Verified 07/14/19 21:06 narcotics Allergy Unknown Uncoded 07/14/19 21:06 Physical Exam Vitals: Vital Signs Temp Pulse Pulse Resp BP BP Pulse Ox 07/15/19 05:33 67 16 105/50 07/15/19 04:00 98.8 F 81 18 111/65 98 07/15/19 03:50 18 07/15/19 02:57 98.0 F 66 16 102/50 98 07/15/19 01:07 79 16 119/53 100 07/15/19 00:44 85 18 105/46 100 07/14/19 21:00 97.9 F 78 18 139/70 97 Intake and Output 07/14/19 07/15/19 07/15/19 22:59 06:59 14:59 Intake Total 150 Balance 150 Intake: Intake, IV Titration 100 Amount Sodium Chloride 0.9% 1, 100 000 ml @ 20 mls/hr IV . Q24H [facility] Rx#:[id number] Oral 50 Other: Voiding Method Indwelling Catheter Weight 45.359 kg GENERAL EXAM: Patient is alert and oriented and seemed to be gradually become uncomfortable from chest pain HEENT: Normocephalic. Normal reaction of pupils, equal size, normal range of extraocular motion. No erythema or exudates in the throat. NECK: No masses, no nuchal rigidity. CHEST: No chest wall deformity. LUNGS: Equal air entry with no crackles or wheeze. HEART: S1 and S2 normal with no audible mumurs or gallops. Regular rhythm, femorals equal on both sides.. ABDOMEN: No hepatosplenomegaly, normal bowel sounds, no guarding or rigidity. SKIN: No rashes CENTRAL NERVOUS SYSTEM: No focal deficits. EXTREMITIES: No cyanosis, clubbing or edema. Results 07/14/19 22:43 07/14/19 22:43 Cardiac Enzymes 07/14/19 07/14/19 Range/Units 22:43 22:43 AST 73 H (14-36) U/L Troponin I <0.012 (0.000-0.034) ng/mL Coagulation 07/14/19 Range/Units 22:43 PT 10.3 (9.0-12.0) sec APTT 24.3 (22.0-30.0) sec CBC 07/14/19 Range/Units 22:43 WBC 7.9 (3.8-10.6) k/uL RBC 3.45 L (3.80-5.40) m/uL Hgb 11.1 L (11.4-16.0) gm/dL Hct 34.4 (34.0-46.0) % Plt Count 184 (150-450) k/uL Comprehensive Metabolic Panel 07/14/19 Range/Units 22:43 Sodium 135 L (137-145) mmol/L Potassium 3.8 (3.5-5.1) mmol/L Chloride 105 (98-107) mmol/L Carbon Dioxide 20 L (22-30) mmol/L BUN 21 H (7-17) mg/dL Creatinine 0.82 (0.52-1.04) mg/dL Glucose 99 (74-99) mg/dL Calcium 8.6 (8.4-10.2) mg/dL AST 73 H (14-36) U/L ALT 88 H (9-52) U/L Alkaline Phosphatase 115 (38-126) U/L Total Protein 6.3 (6.3-8.2) g/dL Albumin 3.6 (3.5-5.0) g/dL Current Medications Generic Name Dose Route Start Last Admin Trade Name Freq PRN Reason Stop Dose Admin Acetaminophen 650 mg 07/15/19 02:22 Tylenol Tab PO Q6HR PRN Mild Pain or Fever > 100.5 Amiodarone HCl 200 mg 07/15/19 09:00 Cordarone PO BID [facility] Atorvastatin Calcium 40 mg 07/15/19 09:00 Lipitor PO DAILY [facility] Hydromorphone HCl 0.5 mg 07/15/19 02:22 07/15/19 05:34 Dilaudid IVP 0.5 mg Q3HR PRN Administration Severe Pain Sodium Chloride 1,000 mls @ 20 mls/hr 07/15/19 02:30 07/15/19 04:16 Saline 0.9% IV 20 mls/hr .Q24H [facility] Administration Dextrose/Water 250 mls @ 999 mls/hr 07/15/19 08:45 07/15/19 08:40 Dextrose 10%-Water Iv Solution IV 07/15/19 09:00 999 mls/hr ONCE ONE Administration Isosorbide Mononitrate 30 mg 07/15/19 09:00 Imdur PO DAILY [facility] Lisinopril 5 mg 07/15/19 09:00 Zestril PO DAILY [facility] Metoprolol Tartrate 12.5 mg 07/15/19 09:00 Lopressor PO BID [facility] Naloxone HCl 0.2 mg 07/15/19 02:22 Narcan IV Q2M PRN Opioid Reversal Nitroglycerin 0.4 mg 07/15/19 08:36 07/15/19 08:40 Nitrostat SUBLINGUAL 0.4 mg Q5M PRN Administration Chest Pain Pantoprazole Sodium 40 mg 07/15/19 09:00 Protonix IV DAILY [facility] Thyroid 60 mg 07/15/19 09:00 [place] Thyroid PO DAILY [facility] Intake and Output 07/14/19 07/15/19 07/15/19 22:59 06:59 14:59 Intake Total 150 Balance 150 Intake: Intake, IV Titration 100 Amount Sodium Chloride 0.9% 1, 100 000 ml @ 20 mls/hr IV . Q24H [facility] Rx#:[id number] Oral 50 Other: Voiding Method Indwelling Catheter Weight 45.359 kg 07/14/19 22:43 07/14/19 22:43 EKG Interpretations (text) Sinus rhythm with diffuse ST-T changes and ST depression in anterolateral leads Assessment and Plan (1) Unstable angina Current Visit: Yes Status: Acute Code(s): I20.0 - UNSTABLE ANGINA SNOMED Code(s): 5492950 (2) History of coronary artery bypass graft Current Visit: Yes Status: Acute Code(s): Z95.1 - PRESENCE OF AORTOCORONARY BYPASS GRAFT SNOMED Code(s): 941736665 (3) Paroxysmal atrial fibrillation Current Visit: Yes Status: Acute Code(s): I48.0 - PAROXYSMAL ATRIAL FIBRILLATION SNOMED Code(s): 023570506 Plan: Patient is being transferred to intensive care unit. She is going to be started on Nitropaste and IV heparin. Echocardiogram will be done .Apixaban will be held. Further recommendations depend upon clinical course. Hip surgery may have to be held for about 24-48 hours
--- NOTE | 2019-07-15 09:17 | P.HPOR ---
History of Present Illness H&P Date: 07/15/19 The patient is a very pleasant 73-year-old female with multiple medical problems who was admitted last night to my service with a left hip fracture. The patient states that she is a community ambulator at baseline without assistive device. Last night the patient sustained a ground-level fall resulting in isolated left hip pain. She was seen in the emergency department where she was found to have a displaced intertrochanteric hip fracture. She was admitted under my care. This morning at the time of my evaluation the patient is complaining of chest pain and discomfort in her left hip. She is currently being worked up for acute coronary event and internal medicine and cardiology was present at bedside at the time of my evaluation. The patient denies antecedent hip pain. Past Medical History Past Medical History: Coronary Artery Disease (CAD), Hyperlipidemia, Hypertension, Myocardial Infarction ([place]) Additional Past Medical History / Comment(s): samaria mcfarlane, back pain, [place] 04/2019 Last Myocardial Infarction Date:: 04/2019 History of Any Multi-Drug Resistant Organisms: None Reported Past Surgical History: Coronary Bypass/CABG, Heart Catheterization Additional Past Surgical History / Comment(s): back fusion approx 2008 Past Anesthesia/Blood Transfusion Reactions: No Reported Reaction Additional Past Anesthesia/Blood Transfusion Reaction / Comment(s): "takes longer to come out from anesthesia" Past Psychological History: No Psychological Hx Reported Smoking Status: Former smoker Past Alcohol Use History: Occasional Past Drug Use History: None Reported Medications and Allergies Home Medications Medication Instructions Recorded Confirmed Type Isosorbide Mononitrate ER [Imdur] 30 mg PO DAILY 08/24/15 07/14/19 History Thyroid,Pork [[place] Thyroid] 60 mg PO DAILY 08/24/15 07/14/19 History Amiodarone [Cordarone] 200 mg PO BID 30 Days #60 tab 05/15/19 07/14/19 Rx Apixaban [Eliquis] 2.5 mg PO BID 30 Days #60 tablet 05/15/19 07/14/19 Rx Aspirin 81 mg PO DAILY 30 Days #30 chew 05/15/19 07/14/19 Rx Atorvastatin [Lipitor] 40 mg PO DAILY 30 Days #30 tab 05/15/19 07/14/19 Rx Furosemide [Lasix] 20 mg PO DAILY 30 Days #30 tab 05/15/19 07/14/19 Rx Lisinopril [Zestril] 5 mg PO DAILY 30 Days #30 tab 05/15/19 07/14/19 Rx Metoprolol Tartrate [Lopressor] 12.5 mg PO BID 07/14/19 07/14/19 History Allergies Allergy/AdvReac Type Severity Reaction Status Date / Time morphine Allergy Itching Verified 07/14/19 21:06 narcotics Allergy Unknown Uncoded 07/14/19 21:06 Physical Examination At the time of my evaluation the patient is resting in her bed and is in moderate distress secondary to chest pain. She demonstrates slightly labored breathing and has a nasal cannula in place. There are no obvious deformities of the upper extremities or right lower extremity. A focused examination of the left leg was conducted. On inspection the leg is slightly shortened and internally rotated. There is a pillow under the knee holding the leg in a flexed position. There is pain with any attempted range of motion of the hip. The thigh and calf are soft. There is no tenderness over the knee, calf, or foot. Motor and sensory function are intact distally in the left foot. Results X-rays of the pelvis and left femur show a displaced 3 part intertrochanteric hip fracture. There is diffuse osteopenia throughout the visualized portion of the pelvis and proximal femur. There are surgical autumn medially and the thigh. There is evidence of prior lumbar fusion with hardware in place. - Labs Labs: Abnormal Lab Results - Last 24 Hours (Table) 07/14/19 07/14/19 07/15/19 Range/Units 22:43 22:43 00:42 RBC 3.45 L (3.80-5.40) m/uL Hgb 11.1 L (11.4-16.0) gm/dL Lymphocytes # 0.7 L (1.0-4.8) k/uL Sodium 135 L (137-145) mmol/L Carbon Dioxide 20 L (22-30) mmol/L BUN 21 H (7-17) mg/dL POC Glucose (mg/dL) (75-99) mg/dL AST 73 H (14-36) U/L ALT 88 H (9-52) U/L Urine Protein Trace H (Negative) Urine Ketones 1+ H (Negative) 07/15/19 Range/Units 08:34 RBC (3.80-5.40) m/uL Hgb (11.4-16.0) gm/dL Lymphocytes # (1.0-4.8) k/uL Sodium (137-145) mmol/L Carbon Dioxide (22-30) mmol/L BUN (7-17) mg/dL POC Glucose (mg/dL) 52 L (75-99) mg/dL AST (14-36) U/L ALT (9-52) U/L Urine Protein (Negative) Urine Ketones (Negative) H & H 07/14/19 Range/Units 22:43 Hgb 11.1 L (11.4-16.0) gm/dL Hct 34.4 (34.0-46.0) % Coagulation 07/14/19 Range/Units 22:43 INR 1.0 (<1.2) Result Diagrams: 07/14/19 22:43 07/14/19 22:43 Assessment and Plan (1) Hip fracture Current Visit: Yes Status: Acute Code(s): S72.009A - FRACTURE OF UNSP PART OF NECK OF UNSP FEMUR, INIT SNOMED Code(s): 219167158 Plan: The patient has a left intertrochanteric hip fracture which will need surgical stabilization with a short intramedullary hip screw once she is medically stable. Due to the patient's multiple medical problems and current active chest pain being worked up for an acute coronary event she is going to be transferred to the ICU. Since she has multiple medical problems and is potentially having an acute coronary event I recommended transfer to the internal medicine service. We will continue to closely follow and await medical clearance. I would like to stabilize the hip fracture within 48 hours of her admission if possible to allow mobilization out of bed to chair and lower her risk of mortality. We will plan on operative fixation tomorrow morning if she is medically cleared. In the interim she is to remain strictly nonweightbearing on her left leg. Time with Patient: Greater than 30
[2019-07-15 09:21] LABS: Glucose,Whole Blood 250 mg/dL (75-99)
[2019-07-15 10:29] LABS: Glucose,Whole Blood 162 mg/dL (75-99)
[2019-07-15] MEDS: PANTOPRAZOLE 40 MG/10 ML VIAL IV SCH (10:33)
[2019-07-15] MEDS: AMIODARONE 200 MG TAB PO SCH ×2 (10:33→20:54)
[2019-07-15] MEDS: ATORVASTATIN 40 MG TAB PO SCH (10:33)
[2019-07-15] MEDS: THYROID, PORK 30 MG TAB PO SCH (10:36)
[2019-07-15] MEDS: ISOSORBIDE MONONITRATE ER 30 MG TAB.ER.24H PO SCH (10:38)
[2019-07-15] MEDS: METOPROLOL TARTRATE 12.5 MG TAB PO SCH ×2 (10:39→20:46)
[2019-07-15] MEDS: LISINOPRIL 5 MG TAB PO SCH (10:39)
[2019-07-15] MEDS: HEPARIN SOD,PORK IN 0.45% NACL 25,000 UNIT in 0.45% NACL 1 250ML.BAG IV SCH (11:39)
[2019-07-15 13:45] VITALS: BMI 16.6
--- NOTE | 2019-07-15 16:01 | ECHOF ---
Referral Reason:Chest pain and cardiomyopathy MEASUREMENTS -------- HEIGHT: 165.1 cm WEIGHT: 45.4 kg BP: 105/50 RVIDd: 2.1 cm (< 3.3) IVSd: 1.0 cm (0.6 - 1.1) LVIDd: 4.4 cm (3.9 - 5.3) LVPWd: 1.2 cm (0.6 - 1.1) IVSs: 1.3 cm LVIDs: 3.9 cm LVPWs: 1.5 cm LA Diam: 2.7 cm (2.7 - 3.8) LAESV Index (A-L): 26.02 ml/m Ao Diam: 2.9 cm (2.0 - 3.7) AV Cusp: 1.6 cm (1.5 - 2.6) MV EXCURSION: 22.386 mm (> 18.000) MV EF SLOPE: 50 mm/s (70 - 150) EPSS: 1.2 cm MV E Chad: 0.77 m/s MV DecT: 424 ms MV A Chad: 1.12 m/s MV E/A Ratio: 0.69 AR PHT: 476 ms RAP: 5.00 mmHg RVSP: 31.41 mmHg TAPSE: 17.31 mm FINDINGS -------- Sinus rhythm. This was a technically adequate study. The left ventricular size is normal. There is borderline concentric left ventricular hypertrophy. Overall left ventricular systolic function is mild-moderately impaired with, an EF between 40 - 45 % . Basal inferior LV wall motion is hypokinetic. Basal inferoseptal LV wall motion is hypokinetic . Mid inferior LV wall motion is hypokinetic. Mid inferoseptal LV wall motion is hypokinetic. The right ventricle is normal in size. Normal LA size by volume 22+/-6 ml/m2. The right atrium is normal in size. Interatrial and interventricular septum intact. There is mild aortic valve sclerosis. There is rjdtfolx-hy-nzfbzh aortic regurgitation. Dfaxqvgr-ko-vtdmxo mitral regurgitation is present. Mild tricuspid regurgitation present. Right ventricular systolic pressure is normal at < 35 mmHg. Trace/mild (physiologic) pulmonic regurgitation. The aortic root size is normal. Normal inferior vena cava with normal inspiratory collapse consistent with estimated right atrial pre ssure of 5 mmHg. There is no pericardial effusion. CONCLUSIONS -------- 1. Sinus rhythm. 2. This was a technically adequate study. 3. The left ventricular size is normal. 4. There is borderline concentric left ventricular hypertrophy. 5. Basal inferior LV wall motion is hypokinetic. 6. Basal inferoseptal LV wall motion is hypokinetic. 7. Mid inferior LV wall motion is hypokinetic. 8. Mid inferoseptal LV wall motion is hypokinetic. 9. The right ventricle is normal in size. 10. Normal LA size by volume 22+/-6 ml/m2. 11. The right atrium is normal in size. 12. Interatrial and interventricular septum intact. 13. There is mild aortic valve sclerosis. 14. There is uestxrgz-he-lfdfyh aortic regurgitation. 15. Jmofuxnb-fi-mghvpx mitral regurgitation is present. 16. Mild tricuspid regurgitation present. 17. Right ventricular systolic pressure is normal at < 35 mmHg. 18. Trace/mild (physiologic) pulmonic regurgitation. 19. The aortic root size is normal. 20. Normal inferior vena cava with normal inspiratory collapse consistent with estimated right atrial pressure of 5 mmHg. 21. There is no pericardial effusion. PAMPHLET DISTRIBUTOR: Bruna Morton RDCS
--- NOTE | 2019-07-15 16:01 | P.HPIM ---
History of Present Illness H&P Date: 07/15/19 Christin Reddy is a 73-year-old female who presented to [facility] emergency room after sustaining a fall and having severe left hip pain, she was evaluated in the emergency room and was found to have a displaced intertrochanteric left hip fracture. She was admitted to the medical floor under orthopedic surgery service, This morning patient started having chest pain she was given sublingual nitroglycerin which resulted in improvement in her chest pain, she was transferred to intensive care unit and cardiology consultation were requested. Patient has a known history of coronary artery disease, and known history of coronary artery bypass graft surgery 4 in the past, she is followed by Dr. López as outpatient, she also has a known history of paroxysmal atrial fibrillation she is maintained on amiodarone and Eliquis. Past Medical History Past Medical History: Coronary Artery Disease (CAD), Hyperlipidemia, Hypertension, Myocardial Infarction ([place]) Additional Past Medical History / Comment(s): samaria mcfarlane, back pain, [place] 04/2019 Last Myocardial Infarction Date:: 04/2019 History of Any Multi-Drug Resistant Organisms: None Reported Past Surgical History: Coronary Bypass/CABG, Heart Catheterization Additional Past Surgical History / Comment(s): back fusion approx 2008 Past Anesthesia/Blood Transfusion Reactions: No Reported Reaction Additional Past Anesthesia/Blood Transfusion Reaction / Comment(s): "takes longer to come out from anesthesia" Past Psychological History: No Psychological Hx Reported Smoking Status: Former smoker Past Alcohol Use History: Occasional Past Drug Use History: None Reported Medications and Allergies Home Medications Medication Instructions Recorded Confirmed Type Isosorbide Mononitrate ER [Imdur] 30 mg PO DAILY 08/24/15 07/14/19 History Thyroid,Pork [[place] Thyroid] 60 mg PO DAILY 08/24/15 07/14/19 History Amiodarone [Cordarone] 200 mg PO BID 30 Days #60 tab 05/15/19 07/14/19 Rx Apixaban [Eliquis] 2.5 mg PO BID 30 Days #60 tablet 05/15/19 07/14/19 Rx Aspirin 81 mg PO DAILY 30 Days #30 chew 05/15/19 07/14/19 Rx Atorvastatin [Lipitor] 40 mg PO DAILY 30 Days #30 tab 05/15/19 07/14/19 Rx Furosemide [Lasix] 20 mg PO DAILY 30 Days #30 tab 05/15/19 07/14/19 Rx Lisinopril [Zestril] 5 mg PO DAILY 30 Days #30 tab 05/15/19 07/14/19 Rx Metoprolol Tartrate [Lopressor] 12.5 mg PO BID 07/14/19 07/14/19 History Allergies Allergy/AdvReac Type Severity Reaction Status Date / Time morphine Allergy Itching Verified 07/14/19 21:06 narcotics Allergy Unknown Uncoded 07/14/19 21:06 Physical Exam Vitals: Vital Signs Temp Pulse Pulse Resp BP BP Pulse Ox 07/15/19 08:35 98.1 F 171 H 18 103/71 92 L 07/15/19 08:20 17 07/15/19 08:10 97.9 F 131 H 17 89/48 95 07/15/19 05:33 67 16 105/50 07/15/19 04:00 98.8 F 81 18 111/65 98 07/15/19 03:50 18 07/15/19 02:57 98.0 F 66 16 102/50 98 07/15/19 01:07 79 16 119/53 100 07/15/19 00:44 85 18 105/46 100 07/14/19 21:00 97.9 F 78 18 139/70 97 Intake and Output 07/15/19 07/15/19 07/15/19 06:59 14:59 22:59 Intake Total 150 Balance 150 Intake: Intake, IV Titration 100 Amount Sodium Chloride 0.9% 1, 100 000 ml @ 20 mls/hr IV . Q24H [facility] Rx#:[id number] Oral 50 Other: Voiding Method Indwelling Catheter Indwelling Catheter Weight 45.359 kg In general patient is alert and oriented 3 in no apparent distress HEENT head normocephalic and atraumatic Neck is supple no JVD no goiter no lymphadenopathy Chest exam reveals a few scattered crackles no wheezing Cardiac exam reveals regular heart sounds no gallops no murmurs Abdomen is soft nontender no organomegaly was normal bowel sounds Extremity exam reveals no edema no cyanosis or clubbing Neurological examination reveals no gross focal deficit Results CBC & Chem 7: 07/14/19 22:43 07/14/19 22:43 Labs: Abnormal Lab Results - Last 24 Hours (Table) 07/14/19 07/14/19 07/15/19 Range/Units 22:43 22:43 00:42 RBC 3.45 L (3.80-5.40) m/uL Hgb 11.1 L (11.4-16.0) gm/dL Lymphocytes # 0.7 L (1.0-4.8) k/uL Sodium 135 L (137-145) mmol/L Carbon Dioxide 20 L (22-30) mmol/L BUN 21 H (7-17) mg/dL POC Glucose (mg/dL) (75-99) mg/dL AST 73 H (14-36) U/L ALT 88 H (9-52) U/L Troponin I (0.000-0.034) ng/mL Urine Protein Trace H (Negative) Urine Ketones 1+ H (Negative) 07/15/19 07/15/19 07/15/19 Range/Units 08:34 09:10 09:23 RBC (3.80-5.40) m/uL Hgb (11.4-16.0) gm/dL Lymphocytes # (1.0-4.8) k/uL Sodium (137-145) mmol/L Carbon Dioxide (22-30) mmol/L BUN (7-17) mg/dL POC Glucose (mg/dL) 52 L 250 H (75-99) mg/dL AST (14-36) U/L ALT (9-52) U/L Troponin I 0.268 H* (0.000-0.034) ng/mL Urine Protein (Negative) Urine Ketones (Negative) 07/15/19 Range/Units 10:16 RBC (3.80-5.40) m/uL Hgb (11.4-16.0) gm/dL Lymphocytes # (1.0-4.8) k/uL Sodium (137-145) mmol/L Carbon Dioxide (22-30) mmol/L BUN (7-17) mg/dL POC Glucose (mg/dL) 162 H (75-99) mg/dL AST (14-36) U/L ALT (9-52) U/L Troponin I (0.000-0.034) ng/mL Urine Protein (Negative) Urine Ketones (Negative) Thrombosis Risk Factor Assmnt - Choose All That Apply Other Risk Factors: Yes Each Risk Factor Represents 2 Points: Age 61-74 years Other congenital or acquired thrombophilia - If yes, enter type in comment: Yes Each Risk Factor Represents 5 Points: Hip, pelvis, or leg fracture (< 1 month) Thrombosis Risk Factor Assessment Total Risk Factor Score: 7 Thrombosis Risk Factor Assessment Level: High Risk Assessment and Plan Plan: #1 fall was left hip fracture #2 unstable angina #3 underlying history of coronary artery disease #4 underlying history of paroxysmal atrial fibrillation #5 underlying history of hypertension #6 underlying history of hyperlipidemia #7 underlying history of hypothyroidism At this time patient is admitted to intensive care unit, Eliquis is on hold, patient was started on IV heparin Medication and labs were reviewed Cardiology and orthopedic surgery are following No evidence of any infectious process at this time will follow closely
[2019-07-16 03:37] LABS: Basophils % (A) 0 %; Eosinophils # (A) 0.2 k/uL (0-0.7); Eosinophils % (A) 3 %; HCT 26.3 % (34.0-46.0); Lymphocytes # (A) 0.8 k/uL (1.0-4.8); Lymphocytes % (A) 14 %; MCH 34.6 pg (25.0-35.0); MCHC 34.5 g/dL (31.0-37.0); MCV 100.4 fL (80.0-100.0); Mean Platelet Volume 7.3; Monocytes # (A) 0.5 k/uL (0-1.0); Monocytes % (A) 8 %; Neutrophils # (A) 4.1 k/uL (1.3-7.7); Neutrophils % (A) 72 %; Platelet Count 122 k/uL (150-450); RBC 2.62 m/uL (3.80-5.40); RDW 13.2 % (11.5-15.5); WBC 5.7 k/uL (3.8-10.6)
[2019-07-16 03:50] LABS: HGB 9.1 gm/dL (11.4-16.0)
[2019-07-16 03:55] LABS: Albumin 2.8 g/dL (3.5-5.0); Calcium 7.9 mg/dL (8.4-10.2); Potassium 4.3 mmol/L (3.5-5.1); Total Bilirubin 0.6 mg/dL (0.2-1.3); Total Protein 5.3 g/dL (6.3-8.2)
[2019-07-16] MEDS: HYDROmorphone 0.5 MG/0.5 ML SYRINGE IVP PRN ×6 (04:40→23:15)
[2019-07-16] MEDS: SODIUM CHLORIDE 0.9% 1,000 ML IV SCH ×2 (08:43→17:58)
--- NOTE | 2019-07-16 09:04 | P.PN ---
Subjective Progress Note Date: 07/16/19 This is a 73-year-old female with history of ischemic heart disease with history of non-STEMI in April of this year. A cardiac catheterization at that time showed subtotal occlusion of the left main with occluded HERNANDEZ graft to the LAD but functional vein graft to the diagonal, which is filling the LAD also. There is one more vein graft to OM that was functioning. Patient was advised maximum medical therapy and patient has been doing fairly well until this admission with fracture of the hip. She did have some chest pain yesterday which was relieved with nitroglycerin. EKG did show some ST-T changes. Her troponin values are borderline elevated but the trend is not consistent with acute coronary syndrome or acute myocardial damage pattern. At this point we'll have discussed with patient regarding options. As there is no correctable coronary lesions from the last cardiac catheterization and also the fact that any intervention would postpone her surgery, patient is advised to go ahead with surgery at this time with the understanding that there is risk of myocardial infarctions and possible other complications like CHF and cardiac arrhythmias. Patient fully understood and wants to go ahead with surgery. Meanwhile we'll continue with maximal medical therapy. Objective - Vital Signs Vital signs: Vital Signs Temp 98.3 F 07/16/19 04:00 Pulse 64 07/16/19 04:00 Resp 15 07/16/19 04:00 BP 104/45 07/16/19 04:00 Pulse Ox 95 07/16/19 04:00 Intake & Output 07/15/19 07/16/19 07/16/19 18:59 06:59 18:59 Intake Total 60 480 80 Output Total 375 710 200 Balance -315 -230 -120 Weight 45.359 kg Intake: IV 240 80 Sodium Chloride 0.9% 1, 240 80 000 ml @ 20 mls/hr IV . Q24H [facility] Rx#:[id number] Intake, IV Titration 60 Amount Sodium Chloride 0.9% 1, 60 000 ml @ 20 mls/hr IV . Q24H [facility] Rx#:[id number] Oral 240 Output: Urine 375 710 200 Other: Voiding Method Indwelling Catheter Indwelling Catheter - Exam GENERAL EXAM: Patient is alert and oriented and doesn't appear to be in any acute distress HEENT: Normocephalic. Normal reaction of pupils, equal size, normal range of extraocular motion. No erythema or exudates in the throat. NECK: No masses, no nuchal rigidity. CHEST: No chest wall deformity. LUNGS: Equal air entry with no crackles or wheeze. HEART: S1 and S2 normal with no audible mumurs or gallops. Regular rhythm, femorals equal on both sides.. ABDOMEN: No hepatosplenomegaly, normal bowel sounds, no guarding or rigidity. SKIN: No rashes CENTRAL NERVOUS SYSTEM: No focal deficits. EXTREMITIES: No cyanosis, clubbing or edema. - Labs CBC & Chem 7: 07/16/19 03:21 07/16/19 03:21 Labs: Abnormal Lab Results - Last 24 Hours (Table) 07/15/19 07/15/19 07/15/19 Range/Units 09:10 09:23 10:16 RBC (3.80-5.40) m/uL Hgb (11.4-16.0) gm/dL Hct (34.0-46.0) % MCV (80.0-100.0) fL Plt Count (150-450) k/uL Lymphocytes # (1.0-4.8) k/uL APTT (22.0-30.0) sec Sodium (137-145) mmol/L Carbon Dioxide (22-30) mmol/L BUN (7-17) mg/dL Glucose (74-99) mg/dL POC Glucose (mg/dL) 250 H 162 H (75-99) mg/dL Calcium (8.4-10.2) mg/dL AST (14-36) U/L ALT (9-52) U/L Troponin I 0.268 H* (0.000-0.034) ng/mL Total Protein (6.3-8.2) g/dL Albumin (3.5-5.0) g/dL 07/15/19 07/15/19 07/15/19 Range/Units 15:32 17:54 21:18 RBC (3.80-5.40) m/uL Hgb (11.4-16.0) gm/dL Hct (34.0-46.0) % MCV (80.0-100.0) fL Plt Count (150-450) k/uL Lymphocytes # (1.0-4.8) k/uL APTT 48.2 H (22.0-30.0) sec Sodium (137-145) mmol/L Carbon Dioxide (22-30) mmol/L BUN (7-17) mg/dL Glucose (74-99) mg/dL POC Glucose (mg/dL) (75-99) mg/dL Calcium (8.4-10.2) mg/dL AST (14-36) U/L ALT (9-52) U/L Troponin I 0.697 H* 0.646 H* (0.000-0.034) ng/mL Total Protein (6.3-8.2) g/dL Albumin (3.5-5.0) g/dL 07/16/19 07/16/19 07/16/19 Range/Units 03:21 03:21 03:21 RBC 2.62 L (3.80-5.40) m/uL Hgb 9.1 L D (11.4-16.0) gm/dL Hct 26.3 L (34.0-46.0) % MCV 100.4 H (80.0-100.0) fL Plt Count 122 L (150-450) k/uL Lymphocytes # 0.8 L (1.0-4.8) k/uL APTT (22.0-30.0) sec Sodium 131 L (137-145) mmol/L Carbon Dioxide 19 L (22-30) mmol/L BUN 19 H (7-17) mg/dL Glucose 101 H (74-99) mg/dL POC Glucose (mg/dL) (75-99) mg/dL Calcium 7.9 L (8.4-10.2) mg/dL AST 184 H (14-36) U/L ALT 155 H (9-52) U/L Troponin I 0.517 H* (0.000-0.034) ng/mL Total Protein 5.3 L (6.3-8.2) g/dL Albumin 2.8 L (3.5-5.0) g/dL 07/16/19 Range/Units 03:21 RBC (3.80-5.40) m/uL Hgb (11.4-16.0) gm/dL Hct (34.0-46.0) % MCV (80.0-100.0) fL Plt Count (150-450) k/uL Lymphocytes # (1.0-4.8) k/uL APTT 49.7 H (22.0-30.0) sec Sodium (137-145) mmol/L Carbon Dioxide (22-30) mmol/L BUN (7-17) mg/dL Glucose (74-99) mg/dL POC Glucose (mg/dL) (75-99) mg/dL Calcium (8.4-10.2) mg/dL AST (14-36) U/L ALT (9-52) U/L Troponin I (0.000-0.034) ng/mL Total Protein (6.3-8.2) g/dL Albumin (3.5-5.0) g/dL Assessment and Plan (1) Unstable angina Current Visit: Yes Status: Acute Code(s): I20.0 - UNSTABLE ANGINA SNOMED Code(s): 5571168 (2) History of coronary artery bypass graft Current Visit: Yes Status: Acute Code(s): Z95.1 - PRESENCE OF AORTOCORONARY BYPASS GRAFT SNOMED Code(s): 148410869 (3) Paroxysmal atrial fibrillation Current Visit: Yes Status: Acute Code(s): I48.0 - PAROXYSMAL ATRIAL FIBRILLATION SNOMED Code(s): 337731485 Plan: Coronary artery disease with ongoing angina and abnormal troponins. Patient also has a hip fracture needing surgery. Patient is felt to be high risk candidate for surgery but there doesn't seem to be any other option at this time. Discussed with Dr. López who is her primary generation engineer. We'll follow
--- NOTE | 2019-07-16 09:58 | P.PN ---
Subjective Progress Note Date: 07/16/19 Christin Reddy is a 73-year-old female who presented to [facility] emergency room after sustaining a fall and having severe left hip pain, she was evaluated in the emergency room and was found to have a displaced intertrochanteric left hip fracture. She was admitted to the medical floor under orthopedic surgery service, This morning patient started having chest pain she was given sublingual nitroglycerin which resulted in improvement in her chest pain, she was transferred to intensive care unit and cardiology consultation were requested. Patient has a known history of coronary artery disease, and known history of coronary artery bypass graft surgery 4 in the past, she is followed by Dr. López as outpatient, she also has a known history of paroxysmal atrial fibrillation she is maintained on amiodarone and Eliquis. On 07/16/2019 patient was seen and examined in the intensive care unit, she is alert and oriented 3 in no apparent distress, she is still complaining of hip pain, otherwise she denies any complaints at this time, there is no fever or chills no headache or dizziness no chest pain no shortness of breath no cough no nausea or vomiting no abdominal pain no diarrhea no burning with urination no frequency or urgency no hematuria. Objective - Vital Signs Vital signs: Vital Signs Temp 98.3 F 07/16/19 04:00 Pulse 64 07/16/19 04:00 Resp 15 07/16/19 04:00 BP 104/45 07/16/19 04:00 Pulse Ox 95 07/16/19 04:00 Intake & Output 07/15/19 07/16/19 07/16/19 18:59 06:59 18:59 Intake Total 60 480 80 Output Total 375 710 200 Balance -315 -230 -120 Weight 45.359 kg Intake: IV 240 80 Sodium Chloride 0.9% 1, 240 80 000 ml @ 20 mls/hr IV . Q24H [facility] Rx#:[id number] Intake, IV Titration 60 Amount Sodium Chloride 0.9% 1, 60 000 ml @ 20 mls/hr IV . Q24H [facility] Rx#:[id number] Oral 240 Output: Urine 375 710 200 Other: Voiding Method Indwelling Catheter Indwelling Catheter - Exam In general patient is alert and oriented 3 in no apparent distress HEENT head normocephalic and atraumatic Neck is supple no JVD no goiter no lymphadenopathy Chest exam reveals a few scattered crackles no wheezing Cardiac exam reveals regular heart sounds no gallops no murmurs Abdomen is soft nontender no organomegaly was normal bowel sounds Extremity exam reveals no edema no cyanosis or clubbing Neurological examination reveals no gross focal deficit - Labs CBC & Chem 7: 07/16/19 03:21 07/16/19 03:21 Labs: Abnormal Lab Results - Last 24 Hours (Table) 07/15/19 07/15/19 07/15/19 Range/Units 09:23 10:16 15:32 RBC (3.80-5.40) m/uL Hgb (11.4-16.0) gm/dL Hct (34.0-46.0) % MCV (80.0-100.0) fL Plt Count (150-450) k/uL Lymphocytes # (1.0-4.8) k/uL APTT (22.0-30.0) sec Sodium (137-145) mmol/L Carbon Dioxide (22-30) mmol/L BUN (7-17) mg/dL Glucose (74-99) mg/dL POC Glucose (mg/dL) 162 H (75-99) mg/dL Calcium (8.4-10.2) mg/dL AST (14-36) U/L ALT (9-52) U/L Troponin I 0.268 H* 0.697 H* (0.000-0.034) ng/mL Total Protein (6.3-8.2) g/dL Albumin (3.5-5.0) g/dL 07/15/19 07/15/19 07/16/19 Range/Units 17:54 21:18 03:21 RBC (3.80-5.40) m/uL Hgb (11.4-16.0) gm/dL Hct (34.0-46.0) % MCV (80.0-100.0) fL Plt Count (150-450) k/uL Lymphocytes # (1.0-4.8) k/uL APTT 48.2 H (22.0-30.0) sec Sodium (137-145) mmol/L Carbon Dioxide (22-30) mmol/L BUN (7-17) mg/dL Glucose (74-99) mg/dL POC Glucose (mg/dL) (75-99) mg/dL Calcium (8.4-10.2) mg/dL AST (14-36) U/L ALT (9-52) U/L Troponin I 0.646 H* 0.517 H* (0.000-0.034) ng/mL Total Protein (6.3-8.2) g/dL Albumin (3.5-5.0) g/dL 07/16/19 07/16/19 07/16/19 Range/Units 03:21 03:21 03:21 RBC 2.62 L (3.80-5.40) m/uL Hgb 9.1 L D (11.4-16.0) gm/dL Hct 26.3 L (34.0-46.0) % MCV 100.4 H (80.0-100.0) fL Plt Count 122 L (150-450) k/uL Lymphocytes # 0.8 L (1.0-4.8) k/uL APTT 49.7 H (22.0-30.0) sec Sodium 131 L (137-145) mmol/L Carbon Dioxide 19 L (22-30) mmol/L BUN 19 H (7-17) mg/dL Glucose 101 H (74-99) mg/dL POC Glucose (mg/dL) (75-99) mg/dL Calcium 7.9 L (8.4-10.2) mg/dL AST 184 H (14-36) U/L ALT 155 H (9-52) U/L Troponin I (0.000-0.034) ng/mL Total Protein 5.3 L (6.3-8.2) g/dL Albumin 2.8 L (3.5-5.0) g/dL Assessment and Plan Plan: #1 fall was left hip fracture #2 unstable angina #3 underlying history of coronary artery disease #4 underlying history of paroxysmal atrial fibrillation #5 underlying history of hypertension #6 underlying history of hyperlipidemia #7 underlying history of hypothyroidism At this time patient is admitted to intensive care unit, Eliquis is on hold, patient was started on IV heparin Medication and labs were reviewed Cardiology and orthopedic surgery are following Cardiology evaluated the patient, she is a high surgical risk however risk of not having surgery would be higher Patient needs to be followed very closely postoperatively No evidence of any infectious process at this time will follow closely
--- NOTE | 2019-07-16 11:16 | P.PN ---
Progress Note - Text Progress Note Date: 07/16/19 I received a call from the orthopedic surgeon requesting to proceed with the right-sided IM nail. She has been cleared by cardiology as well as the medical team. She is still high risk despite clearance. Patient is a increased risk for severe debility if she does not have her hip fix. Cardiology does not believe there is any intervention that is necessary before the surgery and any intervention may significantly delay her surgery. Her echocardiogram was done yesterday which showed moderate to severe mitral regurgitation as well as aortic regurgitation. She last had breakfast around 7 AM. I went over there and discussed with the patient the risk of the surgery. The patient is still willing to proceed. She does understand the risks. I made it very clear that she is at high risk for surgical complication secondary to cardiopulmonary events.
[2019-07-16] MEDS: ISOSORBIDE MONONITRATE ER 30 MG TAB.ER.24H PO SCH (11:23)
[2019-07-16] MEDS: LISINOPRIL 5 MG TAB PO SCH (11:23)
--- NOTE | 2019-07-16 11:23 | P.PN ---
Subjective Progress Note Date: 07/16/19 This patient is a 73-year-old female with past medical history of myocardial infarction April 2019, hyperlipidemia, hypertension, and Sjogren's disease that presented to [facility] on 07/14/19 with complaints of left hip pain following a fall. The patient was found to have a left intertrochanteric hip fracture the ER. The patient was admitted under the care of Dr. Gomez for surgical intervention. Patient was initially evaluated yesterday on 07/15/19, the patient was complaining of chest pain. She was transferred to the ICU, and work-up was initiated for an acute coronary event with consults placed to internal medicine and cardiology. The patient was subsequently transferred to the internal medicine service. Surgery was initially planned for this morning, although the patient was not cleared for surgery by cardiology and internal medicine. Upon reevaluation of the patient morning, the patient has now been cleared by internal medicine and cardiology to move forward with surgery today. Patient is examined bedside this morning. She states her hip pain is currently well-controlled, although she has been requiring IV diluadid every 3 hours. She cannot move her left lower extremity without pain. She denies any additional orthopedic complaints today. Vital signs stable. Objective - Vital Signs Vital signs: Vital Signs Temp 98.2 F 07/16/19 08:00 Pulse 68 07/16/19 10:00 Resp 14 07/16/19 10:00 BP 117/59 07/16/19 10:00 Pulse Ox 95 07/16/19 04:00 Intake & Output 07/15/19 07/16/19 07/16/19 18:59 06:59 18:59 Intake Total 60 480 80 Output Total 375 710 200 Balance -315 -230 -120 Weight 45.359 kg Intake: IV 240 80 Sodium Chloride 0.9% 1, 240 80 000 ml @ 20 mls/hr IV . Q24H [facility] Rx#:[id number] Intake, IV Titration 60 Amount Sodium Chloride 0.9% 1, 60 000 ml @ 20 mls/hr IV . Q24H [facility] Rx#:[id number] Oral 240 Output: Urine 375 710 200 Other: Voiding Method Indwelling Catheter Indwelling Catheter - Exam On examination, the patient is lying in bed in no acute distress. She is alert and oriented 3. Her breathing appears nonlabored. On examination of the left lower extremity, leg is slightly shortened and internally rotated. There is a pillow under her bilateral knees. There is moderate pain with any attempted range of motion of the hip. Patient is able to wiggle toes without issue or pain. Calf is soft and nontender to palpation. Motor and sensory function are intact of the left lower extremity. The left lower extremity is warm and well perfused. - Labs CBC & Chem 7: 07/16/19 03:21 07/16/19 03:21 Labs: Abnormal Lab Results - Last 24 Hours (Table) 07/15/19 07/15/19 07/15/19 Range/Units 15:32 17:54 21:18 RBC (3.80-5.40) m/uL Hgb (11.4-16.0) gm/dL Hct (34.0-46.0) % MCV (80.0-100.0) fL Plt Count (150-450) k/uL Lymphocytes # (1.0-4.8) k/uL APTT 48.2 H (22.0-30.0) sec Sodium (137-145) mmol/L Carbon Dioxide (22-30) mmol/L BUN (7-17) mg/dL Glucose (74-99) mg/dL Calcium (8.4-10.2) mg/dL AST (14-36) U/L ALT (9-52) U/L Troponin I 0.697 H* 0.646 H* (0.000-0.034) ng/mL Total Protein (6.3-8.2) g/dL Albumin (3.5-5.0) g/dL 07/16/19 07/16/19 07/16/19 Range/Units 03:21 03:21 03:21 RBC 2.62 L (3.80-5.40) m/uL Hgb 9.1 L D (11.4-16.0) gm/dL Hct 26.3 L (34.0-46.0) % MCV 100.4 H (80.0-100.0) fL Plt Count 122 L (150-450) k/uL Lymphocytes # 0.8 L (1.0-4.8) k/uL APTT (22.0-30.0) sec Sodium 131 L (137-145) mmol/L Carbon Dioxide 19 L (22-30) mmol/L BUN 19 H (7-17) mg/dL Glucose 101 H (74-99) mg/dL Calcium 7.9 L (8.4-10.2) mg/dL AST 184 H (14-36) U/L ALT 155 H (9-52) U/L Troponin I 0.517 H* (0.000-0.034) ng/mL Total Protein 5.3 L (6.3-8.2) g/dL Albumin 2.8 L (3.5-5.0) g/dL 07/16/19 07/16/19 Range/Units 03:21 09:24 RBC (3.80-5.40) m/uL Hgb (11.4-16.0) gm/dL Hct (34.0-46.0) % MCV (80.0-100.0) fL Plt Count (150-450) k/uL Lymphocytes # (1.0-4.8) k/uL APTT 49.7 H (22.0-30.0) sec Sodium (137-145) mmol/L Carbon Dioxide (22-30) mmol/L BUN (7-17) mg/dL Glucose (74-99) mg/dL Calcium (8.4-10.2) mg/dL AST (14-36) U/L ALT (9-52) U/L Troponin I 0.284 H* (0.000-0.034) ng/mL Total Protein (6.3-8.2) g/dL Albumin (3.5-5.0) g/dL Assessment and Plan Assessment: Left intertrochanteric hip fracture Plan: - Patient has been cleared for surgery by cardiology and internal medicine. We will plan for a short IM hip screw of the left femur this afternoon with Dr. Gomez. - NPO diet. IV heparin has been discontinued. - Strict nonweightbearing of the left lower extremity. - Continue pain management. Patient discussed with Dr. Gomez.
[2019-07-16] MEDS: METOPROLOL TARTRATE 12.5 MG TAB PO SCH ×2 (11:24→21:03)
[2019-07-16] MEDS: PANTOPRAZOLE 40 MG/10 ML VIAL IV SCH (11:29)
[2019-07-16] MEDS: ATORVASTATIN 40 MG TAB PO SCH (11:32)
[2019-07-16] MEDS: AMIODARONE 200 MG TAB PO SCH ×2 (11:33→20:02)
[2019-07-16] MEDS: THYROID, PORK 30 MG TAB PO SCH (11:37)
[2019-07-16] MEDS: HEPARIN SOD,PORK IN 0.45% NACL 25,000 UNIT in 0.45% NACL 1 250ML.BAG IV SCH (11:42)
[2019-07-16] MEDS ORDERED: SODIUM CHLORIDE 0.9% 50 ML with ceFAZolin 1,000 MG IV ONE ×2 (15:10)
[2019-07-16] MEDS ORDERED: PROPOFOL 10 MG/ML 20 ML VIAL IV ONE (15:27)
[2019-07-16] MEDS ORDERED: ePHEDrine SULFATE/0.9% NACL/PF 50 MG/5 ML SYRINGE IV ONE (15:27)
[2019-07-16] MEDS ORDERED: NEOSTIGMINE 1 MG/ML 10 ML VIAL ONE (15:27)
[2019-07-16] MEDS ORDERED: fentaNYL (PF) 50 MCG/ML 2 ML AMP ONE (15:27)
[2019-07-16] MEDS ORDERED: ROCURONIUM BROMIDE 10 MG/ML 10 ML VIAL IV ONE (15:27)
[2019-07-16] MEDS ORDERED: ONDANSETRON 4 MG/2 ML VIAL ONE (15:27)
[2019-07-16] MEDS ORDERED: GLYCOPYRROLATE 0.2 MG/ML 2 ML VIAL ONE (15:27)
[2019-07-16] MEDS ORDERED: LIDOCAINE 1% INJ 10MG/ML (20 ML MDV) ONE (15:27)
[2019-07-16] MEDS ORDERED: LACTATED RINGERS 1,000 ML IV ONE ×3 (15:43→17:06)
--- NOTE | 2019-07-16 17:01 | P.ANPRN ---
Procedure Note - Anesthesia - Invasive Line Left Arterial Line Time Out Performed: Yes Date of Procedure: 07/16/19 Time of Procedure: 15:31 Location of Patient Procedure: PreOp Preparation: Sterile Prep, Sterile Dressing Arterial Line Location: Radial Ultrasound Used: No Needle Guage: 21 Narrative: Recent IA, BP control vital. Art line to monitor hemodynamic shifts.
[2019-07-16] MEDS ORDERED: ONDANSETRON 4 MG/2 ML VIAL IVP PRN (17:26)
[2019-07-16] MEDS ORDERED: HYDROcodone/APAP 5-325MG 1 EACH TAB PO PRN (17:26)
--- NOTE | 2019-07-16 17:39 | P.OP ---
Date of Procedure: 07/16/19 Preoperative Diagnosis: 1. Left 3 part intertrochanteric hip fracture 2. Coronary artery disease 3. Lumbar spine pathology with chronic pain Postoperative Diagnosis: Same Procedure(s) Performed: Operative fixation of left intertrochanteric hip fracture with short intramedullary hip screw Anesthesia: LENORA Surgeon: Warren Gomez Wax Room Supervisor #1: Kiersten Erazo Estimated Blood Loss (ml): 50 IV fluids (ml): 1,500 Pathology: none sent Condition: stable Disposition: PACU Indications for Procedure: The patient is a very pleasant 73-year-old female with multiple medical problems including coronary artery disease who sustained a low-energy fall on Wednesday evening resulting in a left hip fracture. She was initially admitted under my care but was then having active chest pain and elevated troponin so she was transferred to internal medicine. She has been managed in the intensive care unit by both internal medicine and cardiology. The patient was cleared for surgery with a high risk. I met with the patient and her family discuss treatment options. We balanced her high risk of surgery but nonsurgical management would've posed an even higher risk. We discussed operative fixation with intramedullary hip screw. We discussed potential risks and Locations of surgery including but not limited to risk of anesthesia, superficial infection, deep infection, nonunion, malunion, intraoperative fracture, postoperative fracture, malreduction, periprosthetic fracture, and inability to walk, difficulty walking, systematic hardware, DVT, PE, acute coronary event, stroke and possibly loss of life. The patient and her family understand that she is admitting increased risk of having a complication due to her extensive cardiac history. They provided their verbal and written consent to go forward with surgery. Description of Procedure: Patient is in the front. Following the correct left leg was marked with my initials. The patient was then brought back to the operating room. She was g iven a general anesthetic and preoperative antibiotics will she was still on the gurney. She was then transferred onto a fracture table. The affected left leg was placed into the boot of the fracture table and secured with Coban. A perineal post was placed. The unaffected right leg was flexed and externally rotated and secured to the table with a leg marquez. The popliteal fossa was well-padded and the leg was secured with Coban. The left arm was draped across to body and the torso was shifted toward the right side of the bed. A timeout was then performed identifying the correct patient, operative extremity, and procedure. I then performed a closed reduction of the left hip using the fracture table and a combination of longitudinal traction, adduction, and internal rotation. Fluoroscopy was used to assess the reduction using orthogonal views. Once the fracture was reduced the leg was prepped and draped in the standard sterile fashion. I made a small stab incision through the skin and fascia just proximal to the tip of the greater trochanter in line with the femur. A guidepin was then placed just medial to the tip of the greater trochanter on the AP view and centered down the femoral canal the lateral view. The guidepin was advanced to the level of the lesser trochanter. A soft tissue protector was placed over the guidepin and an opening reamer was then used to gain entrance to the proximal canal. A short 11 mm diameter nail was dispensed and I verified the slots of the nail matched up with the trochars placed through the targeting arm. The nail was gently tapped into place but did not fully seat. The nail was removed and a ball-tipped guidewire was placed on the femoral canal. I sequentially reamed in 1 mm increments up to a 12 mm diameter reamer. The reamers and ball- tipped K wires were removed and the nail was then easily advanced. The trocar for the helical blade was placed through the targeting arm and an incision was made over the lateral aspect of the thigh to the skin and IT band. A guidepin was then placed up into the femoral head. Fluoroscopy was used to verify that the guidepin was centered on both the AP and lateral views. The guidepin was measured to 95 mm. The reamer was set to 90 mm and a path was created for the helical blade. A 90 mm helical blade was then gently tapped into place. The set screw was brought down fully and then taken back half a turn. Gentle compression was then administered through the targeting arm. The trocar for the distal interlocking screw was then placed through the targeting arm and a stab incision was made distally through the thigh. A 36 mm locking screws placed distally. The targeting arm was removed proximally and final fluoroscopic images were taken. Both wounds were then thoroughly irrigated and closed in layers with 0 Vicryl for the IT band and fascia, 2-0 Vicryl for the subcutaneous tissue, and autumn for the skin. I verified that all instrument, sponge, and sharp counts were correct. Sterile dressing consisting of Adaptic 4 x 4's and medium Tegaderms were applied over the 3 wounds. The patient was then awoken from her anesthetic, gently taken out of the fracture table, transferred to a gurney, and brought to recovery haven't helped procedure well. Kiersten Erazo PA-C was required as a skilled autopsy assistant for patient positioning, surgical exposure, reduction of fracture, placement of hardware, closure of wounds, and application of dressing. Plan: The patient can weight-bear as tolerated on her left leg and should begin transitioning out of her bed into a chair on postoperative day #1. I will defer to internal medicine and cardiology for DVT prophylaxis. She will need 2 doses of postoperative antibiotics.
[2019-07-16] MEDS: HYDROcodone/APAP 5-325MG 1 EACH TAB PO PRN (21:02)
[2019-07-17] MEDS: HYDROmorphone 0.5 MG/0.5 ML SYRINGE IVP PRN ×3 (01:27→06:30)
[2019-07-17] MEDS: HYDROcodone/APAP 5-325MG 1 EACH TAB PO PRN ×3 (03:30→20:12)
[2019-07-17 04:48] LABS: Basophils # (A) 0.1 k/uL (0-0.2); Basophils % (A) 1 %; Eosinophils # (A) 0.1 k/uL (0-0.7); Eosinophils % (A) 2 %; HCT 21.9 % (34.0-46.0); Lymphocytes # (A) 0.5 k/uL (1.0-4.8); Lymphocytes % (A) 7 %; MCH 34.4 pg (25.0-35.0); MCHC 34.6 g/dL (31.0-37.0); MCV 99.4 fL (80.0-100.0); Mean Platelet Volume 8.1; Monocytes # (A) 0.7 k/uL (0-1.0); Monocytes % (A) 9 %; Neutrophils # (A) 6.2 k/uL (1.3-7.7); Neutrophils % (A) 80 %; Platelet Count 114 k/uL (150-450); RBC 2.21 m/uL (3.80-5.40); RDW 14.3 % (11.5-15.5); WBC 7.7 k/uL (3.8-10.6)
[2019-07-17 04:52] LABS: HGB 7.6 gm/dL (11.4-16.0)
[2019-07-17 04:59] LABS: African American GFR (CKD) >90 (>60 ml/min/1.73 sqM); Anion Gap 4 mmol/L; Blood Urea Nitrogen 15 mg/dL (7-17); Calcium 7.6 mg/dL (8.4-10.2); Carbon Dioxide 21 mmol/L (22-30); Chloride 105 mmol/L (98-107); Glucose 98 mg/dL (74-99); Potassium 4.5 mmol/L (3.5-5.1); Sodium 130 mmol/L (137-145)
--- NOTE | 2019-07-17 08:18 | XR ---
Fluoroscopy INDICATION: Pain FINDINGS: Fluoroscopy time: Not reported seconds. Images obtained: 0. IMPRESSIONS: 1. Documentation of fluoroscopy.
[2019-07-17] MEDS: ATORVASTATIN 40 MG TAB PO SCH (08:49)
[2019-07-17] MEDS: AMIODARONE 200 MG TAB PO SCH ×2 (08:50→20:12)
[2019-07-17] MEDS: THYROID, PORK 30 MG TAB PO SCH (08:51)
[2019-07-17] MEDS: PANTOPRAZOLE 40 MG/10 ML VIAL IV SCH (08:52)
[2019-07-17] MEDS: SODIUM CHLORIDE 0.9% 1,000 ML IV SCH (08:59)
[2019-07-17] MEDS: ISOSORBIDE MONONITRATE ER 30 MG TAB.ER.24H PO SCH (08:59)
[2019-07-17] MEDS: METOPROLOL TARTRATE 12.5 MG TAB PO SCH ×2 (09:00→20:12)
[2019-07-17] MEDS: LISINOPRIL 5 MG TAB PO SCH (09:00)
[2019-07-17] MEDS ORDERED: ALPRAZolam 0.25 MG TAB PO PRN (11:12)
--- NOTE | 2019-07-17 11:21 | P.PN ---
Subjective Progress Note Date: 07/17/19 Christin Reddy is a 73-year-old female who presented to [facility] emergency room after sustaining a fall and having severe left hip pain, she was evaluated in the emergency room and was found to have a displaced intertrochanteric left hip fracture. She was admitted to the medical floor under orthopedic surgery service, This morning patient started having chest pain she was given sublingual nitroglycerin which resulted in improvement in her chest pain, she was transferred to intensive care unit and cardiology consultation were requested. Patient has a known history of coronary artery disease, and known history of coronary artery bypass graft surgery 4 in the past, she is followed by Dr. López as outpatient, she also has a known history of paroxysmal atrial fibrillation she is maintained on amiodarone and Eliquis. On 07/16/2019 patient was seen and examined in the intensive care unit, she is alert and oriented 3 in no apparent distress, she is still complaining of hip pain, otherwise she denies any complaints at this time, there is no fever or chills no headache or dizziness no chest pain no shortness of breath no cough no nausea or vomiting no abdominal pain no diarrhea no burning with urination no frequency or urgency no hematuria. On 07/17/2019 patient remains in the intensive care unit. Patient's alert and oriented 3. Patient is up to chair. Patient is status post operative fixation of the left intertrochanteric hip fracture with short intramedullary hip screw with Dr. Gomez. Patient is currently postop day 1 hemoglobin decreasing to 7.6. no signs of bleeding. At this time patient is having increased anxiety Xanax added. Patient denies chest pain or shortness breath. Patient denies nausea vomiting or diarrhea. Patient denies any urinary burning or frequency Objective - Vital Signs Vital signs: Vital Signs Temp 98.3 F 07/17/19 08:00 Pulse 80 07/17/19 10:00 Resp 17 07/17/19 10:00 BP 87/30 07/17/19 10:00 Pulse Ox 98 07/17/19 08:00 Intake & Output 07/16/19 07/17/19 07/17/19 18:59 06:59 18:59 Intake Total 3635.126 9404 220 Output Total 1325 225 Balance 509.373 835 220 Intake: IV 1710 340 70 Sodium Chloride 0.9% 1, 160 340 70 000 ml @ 20 mls/hr IV . Q24H [facility] Rx#:[id number] Intake, IV Titration 124.373 50 Amount Heparin Sod,Pork in 0.45% 124.373 NaCl 25,000 unit In 0.45 % NaCl 1 250ml.bag @ 12 UNITS/KG/HR 5.443 mls/hr IV .Q24H [facility] Rx#: [id number] ceFAZolin 2 gm In Sodium 50 Chloride 0.9% 50 ml @ 100 mls/hr IVPB Q8HR [facility] Rx# :[id number] Oral 720 100 Output: Urine 1275 225 Estimated Blood Loss 50 Other: Voiding Method Indwelling Catheter Indwelling Catheter Indwelling Catheter ABP, PAP, CO, CI - Last Documented Arterial Blood Pressure 100/42 - Exam In general patient is alert and oriented 3 in no apparent distress HEENT head normocephalic and atraumatic Neck is supple no JVD no goiter no lymphadenopathy Chest exam reveals a few scattered crackles no wheezing Cardiac exam reveals regular heart sounds no gallops no murmurs Abdomen is soft nontender no organomegaly was normal bowel sounds Extremity exam reveals no edema no cyanosis or clubbing Neurological examination reveals no gross focal deficit - Labs CBC & Chem 7: 07/17/19 04:35 07/17/19 04:35 Labs: Abnormal Lab Results - Last 24 Hours (Table) 07/17/19 07/17/19 Range/Units 04:35 04:35 RBC 2.21 L (3.80-5.40) m/uL Hgb 7.6 L D (11.4-16.0) gm/dL Hct 21.9 L (34.0-46.0) % Plt Count 114 L (150-450) k/uL Lymphocytes # 0.5 L (1.0-4.8) k/uL Sodium 130 L (137-145) mmol/L Carbon Dioxide 21 L (22-30) mmol/L Calcium 7.6 L (8.4-10.2) mg/dL Assessment and Plan Assessment: #1 fall was left hip fracture. Status post operative fixation of the left intertrochanteric hip fracture with short intramedullary hip screw with Dr. Maryam ochoa. Patient is currently postop day 1. #2 unstable angina. Troponins 0.646, 0.57 and 0.284. Patient was evaluated by cardiology services. Patient was started on heparin drip prior to surgery. #3 underlying history of coronary artery disease #4 underlying history of paroxysmal atrial fibrillation #5 underlying history of hypertension #6 underlying history of hyperlipidemia #7 underlying history of hypothyroidism #8. Increased anxiety. Xanax added #9. Expected acute blood loss anemia secondary to surgery. Hemoglobin dropping to 7.6 will continue to monitor Social Work consulted for discharge planning Cardiology evaluated the patient, she is a high surgical risk however risk of not having surgery would be higher Patient needs to be followed very closely postoperatively No evidence of any infectious process at this time will follow closely I performed an examination of the patient and discussed their management with the Nurse Practitioner. I have reviewed the Nurse Practitioner's notes and agree with the documented findings and plan of care
--- NOTE | 2019-07-17 12:36 | P.PN ---
Subjective Progress Note Date: 07/17/19 This patient is a 73-year-old female with past medical history of myocardial infarction April 2019, hyperlipidemia, hypertension, and Sjogren's disease that presented to [facility] on 07/14/19 with complaints of left hip pain following a fall. The patient was found to have a left intertrochanteric hip fracture the ER. The patient was admitted under the care of Dr. Gomez for surgical intervention. Patient was initially evaluated yesterday on 07/15/19, the patient was complaining of chest pain. She was transferred to the ICU, and work-up was initiated for an acute coronary event with consults placed to internal medicine and cardiology. The patient was subsequently transferred to the internal medicine service. Surgery was initially planned for this morning, although the patient was not cleared for surgery by cardiology and internal medicine. Upon reevaluation of the patient morning, the patient has now been cleared by internal medicine and cardiology to move forward with surgery today. Patient underwent Operative fixation of a left intertrochanteric hip fracture with a short intramedullary hip screw on 07/16/[address] Gomez. Today is postoperative day #1. The patient states she has not been up with therapy at today. She was on the edge of the bed last night. She did eat dinner last night, although she has not eaten breakfast this morning. She states she is nervous to begin physical therapy today. She states her pain is currently well controlled and left hip if she does not move the left lower extremity. Patient denies chest pain, shortness breath, nausea, vomiting. Vital signs stable. Objective - Vital Signs Vital signs: Vital Signs Temp 98.3 F 07/17/19 08:00 Pulse 80 07/17/19 10:00 Resp 17 07/17/19 10:00 BP 87/30 07/17/19 10:00 Pulse Ox 98 07/17/19 08:00 Intake & Output 07/16/19 07/17/19 07/17/19 18:59 06:59 18:59 Intake Total 9415.449 4613 220 Output Total 1325 225 Balance 509.373 835 220 Intake: IV 1710 340 70 Sodium Chloride 0.9% 1, 160 340 70 000 ml @ 20 mls/hr IV . Q24H [facility] Rx#:[id number] Intake, IV Titration 124.373 50 Amount Heparin Sod,Pork in 0.45% 124.373 NaCl 25,000 unit In 0.45 % NaCl 1 250ml.bag @ 12 UNITS/KG/HR 5.443 mls/hr IV .Q24H [facility] Rx#: [id number] ceFAZolin 2 gm In Sodium 50 Chloride 0.9% 50 ml @ 100 mls/hr IVPB Q8HR [facility] Rx# :[id number] Oral 720 100 Output: Urine 1275 225 Estimated Blood Loss 50 Other: Voiding Method Indwelling Catheter Indwelling Catheter Indwelling Catheter ABP, PAP, CO, CI - Last Documented Arterial Blood Pressure 100/42 - Exam On examination, the patient is lying in bed in no acute distress. She is alert and oriented 3. Her breathing appears nonlabored. On examination of the left hip, there is a clean, dry, intact dressing in place with minimal saturation of the most proximal dressing. There is moderate pain with any attempted range of motion of the hip. Patient is able to wiggle toes without issue or pain. Patie nt has good range of motion of the ankle. Calf is soft and nontender to palpation. Motor and sensory function are intact of the left lower extremity. The left lower extremity is warm and well perfused. - Labs CBC & Chem 7: 07/17/19 04:35 07/17/19 04:35 Labs: Abnormal Lab Results - Last 24 Hours (Table) 07/17/19 07/17/19 Range/Units 04:35 04:35 RBC 2.21 L (3.80-5.40) m/uL Hgb 7.6 L D (11.4-16.0) gm/dL Hct 21.9 L (34.0-46.0) % Plt Count 114 L (150-450) k/uL Lymphocytes # 0.5 L (1.0-4.8) k/uL Sodium 130 L (137-145) mmol/L Carbon Dioxide 21 L (22-30) mmol/L Calcium 7.6 L (8.4-10.2) mg/dL Assessment and Plan Assessment: Left intertrochanteric hip fracture status-post operative fixation with a short intramedullary hip screw on 07/16/19. Postoperative day #1. Plan: - Patient may bear weight to tolerance on the operative leg. Up with a walker and with assistance. - Ice and elevate left hip for pain and swelling control. Begin dressing changes second day postop, and when necessary as it becomes saturated. - Physical therapy for gait and balance training. - 2 doses of postoperative antibiotics. - We will defer postoperative anticoagulation to the internal medicine team. - Continue pain management. - We will continue to follow patient closely. Patient discussed with Dr. Gomez.
[2019-07-17] MEDS ORDERED: ENOXAPARIN 40 MG/0.4 ML SYRINGE SQ STA (13:20)
--- NOTE | 2019-07-17 16:52 | P.PN ---
Subjective Progress Note Date: 07/17/19 This is a 73-year-old female with history of ischemic heart disease with history of non-STEMI in April of this year. A cardiac catheterization at that time showed subtotal occlusion of the left main with occluded HERNANDEZ graft to the LAD but functional vein graft to the diagonal, which is filling the LAD also. There is one more vein graft to OM that was functioning. Patient was advised maximum medical therapy and patient has been doing fairly well until this admission with fracture of the hip. She did have some chest pain yesterday which was relieved with nitroglycerin. EKG did show some ST-T changes. Her troponin values are borderline elevated but the trend is not consistent with acute coronary syndrome or acute myocardial damage pattern. At this point we'll have discussed with patient regarding options. As there is no correctable coronary lesions from the last cardiac catheterization and also the fact that any intervention would postpone her surgery, patient is advised to go ahead with surgery at this time with the understanding that there is risk of myocardial infarctions and possible other complications like CHF and cardiac arrhythmias. Patient fully understood and wants to go ahead with surgery. Meanwhile we'll continue with maximal medical therapy. 07/17/2019: This patient with history of ischemic heart disease and previous bypass surgery was admitted following a fall with fracture of the hip. Patient also has started having chest pain suggestive of unstable angina with abnormal troponin values. Patient did undergo surgery for the hip fracturre, yesterday. Tolerated the procedure fairly well. Hasn't had any recurrence of chest pain. Still complains of pain in the hip area. From Cardec standpoint we'll continue current medical therapy. We'll resume her anticoagulations therapy. We'll follow Objective - Vital Signs Vital signs: Vital Signs Temp 98.2 F 07/17/19 12:00 Pulse 87 07/17/19 12:00 Resp 23 07/17/19 12:00 BP 86/37 07/17/19 12:00 Pulse Ox 98 07/17/19 08:00 Intake & Output 07/16/19 07/17/19 07/17/19 18:59 06:59 18:59 Intake Total 5491.309 1639 420 Output Total 1325 225 100 Balance 509.373 835 320 Intake: IV 1710 340 150 Sodium Chloride 0.9% 1, 160 340 150 000 ml @ 20 mls/hr IV . Q24H [facility] Rx#:[id number] Intake, IV Titration 124.373 50 Amount Heparin Sod,Pork in 0.45% 124.373 NaCl 25,000 unit In 0.45 % NaCl 1 250ml.bag @ 12 UNITS/KG/HR 5.443 mls/hr IV .Q24H [facility] Rx#: [id number] ceFAZolin 2 gm In Sodium 50 Chloride 0.9% 50 ml @ 100 mls/hr IVPB Q8HR [facility] Rx# :[id number] Oral 720 220 Output: Urine 1275 225 100 Estimated Blood Loss 50 Other: Voiding Method Indwelling Catheter Indwelling Catheter Indwelling Catheter ABP, PAP, CO, CI - Last Documented Arterial Blood Pressure 100/42 - Exam GENERAL EXAM: Patient is alert and oriented and doesn't appear to be in any acute distress HEENT: Normocephalic. Normal reaction of pupils, equal size, normal range of extraocular motion. No erythema or exudates in the throat. NECK: No masses, no nuchal rigidity. CHEST: No chest wall deformity. LUNGS: Equal air entry with no crackles or wheeze. HEART: S1 and S2 normal with no audible mumurs or gallops. Regular rhythm, femorals equal on both sides.. ABDOMEN: No hepatosplenomegaly, normal bowel sounds, no guarding or rigidity. SKIN: No rashes CENTRAL NERVOUS SYSTEM: No focal deficits. EXTREMITIES: No cyanosis, clubbing or edema. - Labs CBC & Chem 7: 07/17/19 04:35 07/17/19 04:35 Labs: Abnormal Lab Results - Last 24 Hours (Table) 07/17/19 07/17/19 Range/Units 04:35 04:35 RBC 2.21 L (3.80-5.40) m/uL Hgb 7.6 L D (11.4-16.0) gm/dL Hct 21.9 L (34.0-46.0) % Plt Count 114 L (150-450) k/uL Lymphocytes # 0.5 L (1.0-4.8) k/uL Sodium 130 L (137-145) mmol/L Carbon Dioxide 21 L (22-30) mmol/L Calcium 7.6 L (8.4-10.2) mg/dL Assessment and Plan (1) Unstable angina Current Visit: Yes Status: Acute Code(s): I20.0 - UNSTABLE ANGINA SNOMED Code(s): 5311369 (2) History of coronary artery bypass graft Current Visit: Yes Status: Acute Code(s): Z95.1 - PRESENCE OF AORTOCORONARY BYPASS GRAFT SNOMED Code(s): 885038722 (3) Paroxysmal atrial fibrillation Current Visit: Yes Status: Acute Code(s): I48.0 - PAROXYSMAL ATRIAL FIBRILLATION SNOMED Code(s): 747376744 Plan: Continue current medical therapy. Resume oral anticoagulation. We'll follow
[2019-07-17] MEDS: HEPARIN SOD,PORK IN 0.45% NACL 25,000 UNIT in 0.45% NACL 1 250ML.BAG IV SCH (19:51)
[2019-07-17] MEDS: APIXABAN 2.5 MG TABLET PO SCH (20:12)
[2019-07-18] MEDS: HYDROcodone/APAP 5-325MG 1 EACH TAB PO PRN ×2 (01:10→15:50)
[2019-07-18 05:11] LABS: Basophils % (A) 0 %; Eosinophils # (A) 0.1 k/uL (0-0.7); Eosinophils % (A) 1 %; HCT 21.9 % (34.0-46.0); HGB 7.5 gm/dL (11.4-16.0); Lymphocytes # (A) 0.4 k/uL (1.0-4.8); Lymphocytes % (A) 4 %; MCH 34.5 pg (25.0-35.0); MCHC 34.3 g/dL (31.0-37.0); MCV 100.6 fL (80.0-100.0); Macrocytosis Slight; Mean Platelet Volume 8.2; Monocytes # (A) 0.7 k/uL (0-1.0); Monocytes % (A) 6 %; Neutrophils # (A) 9.3 k/uL (1.3-7.7); Neutrophils % (A) 88 %; Platelet Count 126 k/uL (150-450); RBC 2.18 m/uL (3.80-5.40); WBC 10.6 k/uL (3.8-10.6)
[2019-07-18 05:26] LABS: ALT 105 U/L (9-52); AST 167 U/L (14-36); African American GFR (CKD) >90 (>60 ml/min/1.73 sqM); Albumin 2.8 g/dL (3.5-5.0); Alkaline Phosphatase 60 U/L (38-126); Anion Gap 11 mmol/L; Blood Urea Nitrogen 19 mg/dL (7-17); Calcium 8.2 mg/dL (8.4-10.2); Carbon Dioxide 17 mmol/L (22-30); Chloride 100 mmol/L (98-107); Glucose 100 mg/dL (74-99); Potassium 4.7 mmol/L (3.5-5.1); Sodium 128 mmol/L (137-145); Total Bilirubin 0.9 mg/dL (0.2-1.3); Total Protein 5.4 g/dL (6.3-8.2)
[2019-07-18] MEDS: HYDROmorphone 0.5 MG/0.5 ML SYRINGE IVP PRN (09:41)
[2019-07-18] MEDS: AMIODARONE 200 MG TAB PO SCH ×2 (09:54→19:58)
[2019-07-18] MEDS: APIXABAN 2.5 MG TABLET PO SCH ×2 (09:55→19:59)
[2019-07-18] MEDS: ATORVASTATIN 40 MG TAB PO SCH (09:55)
[2019-07-18] MEDS: PANTOPRAZOLE 40 MG/10 ML VIAL IV SCH (09:58)
[2019-07-18] MEDS: METOPROLOL TARTRATE 12.5 MG TAB PO SCH ×2 (10:00→20:01)
[2019-07-18] MEDS: THYROID, PORK 30 MG TAB PO SCH (10:00)
[2019-07-18] MEDS ORDERED: SODIUM CHLORIDE 0.9% 500 ML 500 ML IV ONE ×2 (10:19→23:05)
--- NOTE | 2019-07-18 10:38 | XR ---
EXAMINATION TYPE: XR Hip Limited LT DATE OF EXAM: 07/18/2019 COMPARISON: NONE HISTORY: 73-year-old female postoperative evaluation TECHNIQUE: Single AP view FINDINGS: Lateral proximal thigh and hip skin autumn. Scattered soft tissue air related to recent operation. A ntegrade intramedullary nail with screw fixation across the patient's intertrochanteric fracture. Ove rall alignment grossly anatomic though there is a displaced fragment of the lesser trochanter. IMPRESSION: Uncomplicated postoperative appearance after intramedullary nail and screw fixation across the intert rochanteric fracture. Overall alignment grossly anatomic though there is a displaced fragment of the lesser trochanter.
--- NOTE | 2019-07-18 11:23 | P.PN ---
Subjective Progress Note Date: 07/18/19 Christin Reddy is a 73-year-old female who presented to [facility] emergency room after sustaining a fall and having severe left hip pain, she was evaluated in the emergency room and was found to have a displaced intertrochanteric left hip fracture. She was admitted to the medical floor under orthopedic surgery service, This morning patient started having chest pain she was given sublingual nitroglycerin which resulted in improvement in her chest pain, she was transferred to intensive care unit and cardiology consultation were requested. Patient has a known history of coronary artery disease, and known history of coronary artery bypass graft surgery 4 in the past, she is followed by Dr. López as outpatient, she also has a known history of paroxysmal atrial fibrillation she is maintained on amiodarone and Eliquis. On 07/16/2019 patient was seen and examined in the intensive care unit, she is alert and oriented 3 in no apparent distress, she is still complaining of hip pain, otherwise she denies any complaints at this time, there is no fever or chills no headache or dizziness no chest pain no shortness of breath no cough no nausea or vomiting no abdominal pain no diarrhea no burning with urination no frequency or urgency no hematuria. On 07/17/2019 patient remains in the intensive care unit. Patient's alert and oriented 3. Patient is up to chair. Patient is status post operative fixation of the left intertrochanteric hip fracture with short intramedullary hip screw with Dr. Gomez. Patient is currently postop day 1 hemoglobin decreasing to 7.6. no signs of bleeding. At this time patient is having increased anxiety Xanax added. Patient denies chest pain or shortness breath. Patient denies nausea vomiting or diarrhea. Patient denies any urinary burning or frequency On 07/18/2019 patient's alert and oriented 3. Patient is having increased pain came and administered per nursing staff. Patient is currently postop day 2. Eliquis has been resumed per cardiology and orthopedic services. Hemoglobin 7.5. No signs of acute bleeding. Patient does have low urine output 500 mL bolus will be given. At this time patient denies chest pain or shortness of breath. Patient denies nausea vomiting or diarrhea. Patient denies any urinary burning or frequency. jang catheter has been placed Objective - Vital Signs Vital signs: Vital Signs Temp 97.7 F 07/18/19 04:00 Pulse 88 07/18/19 04:00 Resp 17 07/18/19 04:00 BP 95/44 07/18/19 04:00 Pulse Ox 99 07/18/19 04:00 Intake & Output 07/17/19 07/18/19 07/18/19 18:59 06:59 18:59 Intake Total 500 Output Total 200 400 Balance 300 -400 Weight 45.359 kg Intake: IV 230 Sodium Chloride 0.9% 1, 230 000 ml @ 20 mls/hr IV . Q24H [facility] Rx#:[id number] Intake, IV Titration 50 Amount ceFAZolin 2 gm In Sodium 50 Chloride 0.9% 50 ml @ 100 mls/hr IVPB Q8HR [facility] Rx# :[id number] Oral 220 Output: Urine 200 400 Other: Voiding Method Indwelling Catheter Indwelling Catheter ABP, PAP, CO, CI - Last Documented Arterial Blood Pressure 100/42 - Exam In general patient is alert and oriented 3 in no apparent distress HEENT head normocephalic and atraumatic Neck is supple no JVD no goiter no lymphadenopathy Chest exam reveals a few scattered crackles no wheezing Cardiac exam reveals regular heart sounds no gallops no murmurs Abdomen is soft nontender no organomegaly was normal bowel sounds Extremity exam reveals no edema no cyanosis or clubbing Neurological examination reveals no gross focal deficit - Labs CBC & Chem 7: 07/18/19 04:22 07/18/19 04:22 Labs: Abnormal Lab Results - Last 24 Hours (Table) 07/18/19 07/18/19 Range/Units 04:22 04:22 RBC 2.18 L (3.80-5.40) m/uL Hgb 7.5 L (11.4-16.0) gm/dL Hct 21.9 L (34.0-46.0) % MCV 100.6 H (80.0-100.0) fL Plt Count 126 L (150-450) k/uL Neutrophils # 9.3 H (1.3-7.7) k/uL Lymphocytes # 0.4 L (1.0-4.8) k/uL Sodium 128 L (137-145) mmol/L Carbon Dioxide 17 L (22-30) mmol/L BUN 19 H (7-17) mg/dL Glucose 100 H (74-99) mg/dL Calcium 8.2 L (8.4-10.2) mg/dL AST 167 H (14-36) U/L ALT 105 H (9-52) U/L Total Protein 5.4 L (6.3-8.2) g/dL Albumin 2.8 L (3.5-5.0) g/dL Assessment and Plan Assessment: #1 fall was left hip fracture. Status post operative fixation of the left intertrochanteric hip fracture with short intramedullary hip screw with Dr. Gomez. Patient is currently postop day 2. #2 unstable angina. Troponins 0.646, 0.57 and 0.284. Patient was evaluated by cardiology services. Patient was started on heparin drip prior to surgery. #3 underlying history of coronary artery disease #4 underlying history of paroxysmal atrial fibrillation. Eliquis has been resumed per cardiology and orthopedic services #5 underlying history of hypertension #6 underlying history of hyperlipidemia #7 underlying history of hypothyroidism #8. Increased anxiety. Xanax added #9. Expected acute blood loss anemia secondary to surgery. Hemoglobin dropping to 7.6 will continue to monitor #10 low urine output. Jang catheter placed. 500 mL bolus to be given #11. Hyponatremia. Sodium 128. Patient placed on 1200 mL fluid restriction. We'll continue to monitor DVT prophylaxis eliquis. GI prophylaxis Protonix Social Work consulted for discharge planning Cardiology evaluated the patient, she is a high surgical risk however risk of not having surgery would be higher Patient needs to be followed very closely postoperatively No evidence of any infectious process at this time will follow closely I performed an examination of the patient and discussed their management with the Nurse Practitioner. I have reviewed the Nurse Practitioner's notes and agree with the documented findings and plan of care
--- NOTE | 2019-07-18 12:14 | P.PN ---
Subjective Progress Note Date: 07/18/19 This patient is a 73-year-old female with past medical history of myocardial infarction April 2019, hyperlipidemia, hypertension, and Sjogren's disease that presented to [facility] on 07/14/19 with complaints of left hip pain following a fall. The patient was found to have a left intertrochanteric hip fracture the ER. The patient was admitted under the care of Dr. Gomez for surgical intervention. Patient was initially evaluated yesterday on 07/15/19, the patient was complaining of chest pain. She was transferred to the ICU, and work-up was initiated for an acute coronary event with consults placed to internal medicine and cardiology. The patient was subsequently transferred to the internal medicine service. Surgery was initially planned for this morning, although the patient was not cleared for surgery by cardiology and internal medicine. Upon reevaluation of the patient morning, the patient has now been cleared by internal medicine and cardiology to move forward with surgery today. Patient underwent Operative fixation of a left intertrochanteric hip fracture with a short intramedullary hip screw on 07/16/[address] Gomez. Today is postoperative day #2. The patient states her pain is uncontrolled at the moment. She states the pain is localized to the left hip. She rates her pain an 8/10. She was up in the bedside chair yesterday until 9pm last night, per nursing. She transferred to the chair with the assistance of physical therapy and a walker. She denies any additional complaints. She denies chest pain, shortness of breath, nausea, vomiting. Vital signs stable. Objective - Vital Signs Vital signs: Vital Signs Temp 97.7 F 07/18/19 04:00 Pulse 88 07/18/19 04:00 Resp 17 07/18/19 04:00 BP 95/44 07/18/19 04:00 Pulse Ox 99 07/18/19 04:00 Intake & Output 07/17/19 07/18/19 07/18/19 18:59 06:59 18:59 Intake Total 500 Output Total 200 400 Balance 300 -400 Intake: IV 230 Sodium Chloride 0.9% 1, 230 000 ml @ 20 mls/hr IV . Q24H [facility] Rx#:[id number] Intake, IV Titration 50 Amount ceFAZolin 2 gm In Sodium 50 Chloride 0.9% 50 ml @ 100 mls/hr IVPB Q8HR [facility] Rx# :[id number] Oral 220 Output: Urine 200 400 Other: Voiding Method Indwelling Catheter Indwelling Catheter ABP, PAP, CO, CI - Last Documented Arterial Blood Pressure 100/42 - Exam On examination, the patient is lying in bed in mild distress secondary to pain. She is alert and oriented 3. Her breathing appears nonlabored. On examination of the left hip, there is a clean, dry, intact dressing in place with minimal saturation of the most proximal dressing. There is moderate pain with any attempted range of motion of the hip. Patient is able to wiggle toes without issue or pain. Patient has good range of motion of the ankle. Calf is soft and nontender to palpation. Motor and sensory function are intact of the left lower extremity. The left lower extremity is warm and well perfused. The bilateral toes and bilateral fingers are cold and are tinged blue, when questioned, patient states this is chronic secondary to Raynaud's. - Labs CBC & Chem 7: 07/18/19 04:22 07/18/19 04:22 Labs: Abnormal Lab Results - Last 24 Hours (Table) 07/18/19 07/18/19 Range/Units 04:22 04:22 RBC 2.18 L (3.80-5.40) m/uL Hgb 7.5 L (11.4-16.0) gm/dL Hct 21.9 L (34.0-46.0) % MCV 100.6 H (80.0-100.0) fL Plt Count 126 L (150-450) k/uL Neutrophils # 9.3 H (1.3-7.7) k/uL Lymphocytes # 0.4 L (1.0-4.8) k/uL Sodium 128 L (137-145) mmol/L Carbon Dioxide 17 L (22-30) mmol/L BUN 19 H (7-17) mg/dL Glucose 100 H (74-99) mg/dL Calcium 8.2 L (8.4-10.2) mg/dL AST 167 H (14-36) U/L ALT 105 H (9-52) U/L Total Protein 5.4 L (6.3-8.2) g/dL Albumin 2.8 L (3.5-5.0) g/dL Assessment and Plan Assessment: Left intertrochanteric hip fracture status-post operative fixation with a short intramedullary hip screw on 07/16/19. Postoperative day #2. Plan: - Patient's pain continues to be uncontrolled today. Left hip x-ray shows intact hardware with no interval displacement. We will consult pain management for further recommendations. - Patient may bear weight to tolerance on the operative leg. Up with a walker and with assistance. - Ice and elevate left hip for pain and swelling control. Begin dressing changes second day postop, and when necessary as it becomes saturated. - Physical therapy for gait and balance training. - 2 doses of postoperative antibiotics. - We will defer postoperative anticoagulation to the internal medicine team. - We will continue to follow patient closely. Patient discussed with Dr. Gomez.
[2019-07-18] MEDS: ISOSORBIDE MONONITRATE ER 30 MG TAB.ER.24H PO SCH (13:41)
[2019-07-18] MEDS: LISINOPRIL 5 MG TAB PO SCH (13:41)
[2019-07-18] MEDS: SODIUM CHLORIDE 0.9% 1,000 ML IV SCH (13:42)
--- NOTE | 2019-07-18 15:17 | P.PAINCN ---
History of Present Illness - Reason for Consult Consult date: 07/18/19 - History of Present Illness This is a 73-year-old female postop day 2 from hip surgery after a hip fracture. She is in the ICU, with some low blood pressures and low urine output. We were consulted for acute postoperative pain control. Of note she is written for Mentone and Dilaudid 0.5 mg every 2 hours when necessary. Liver she is not receiving all of her Dilaudid doses, because of low blood pressure low urine output. Her predominant pain is in her left hip or her surgery happened. She also has some pain in her low back. Finally she has some pain related to Raynaud's disease. She states that it is painful to move, however when she did receive Dilaudid it was helpful. Given her heart disease NSAIDs are relatively contraindicated. Furthermore her AST and ALP are slightly elevated, making scheduled Tylenol and an excellent option Past Medical History Past Medical History: Coronary Artery Disease (CAD), Hyperlipidemia, Hypertension, Myocardial Infarction ([place]) Additional Past Medical History / Comment(s): samaria mcfarlane, back pain, [place] 04/2019 Last Myocardial Infarction Date:: 04/2019 History of Any Multi-Drug Resistant Organisms: None Reported Past Surgical History: Coronary Bypass/CABG, Heart Catheterization Additional Past Surgical History / Comment(s): back fusion approx 2008 Past Anesthesia/Blood Transfusion Reactions: No Reported Reaction Additional Past Anesthesia/Blood Transfusion Reaction / Comm: "takes longer to come out from anesthesia" Past Psychological History: No Psychological Hx Reported Smoking Status: Former smoker Past Alcohol Use History: Occasional Past Drug Use History: None Reported Medications and Allergies Home Medications Medication Instructions Recorded Confirmed Type Isosorbide Mononitrate ER [Imdur] 30 mg PO DAILY 08/24/15 07/14/19 History Thyroid,Pork [[place]udson Thyroid] 60 mg PO DAILY 08/24/15 07/14/19 History Amiodarone [Cordarone] 200 mg PO BID 30 Days #60 tab 05/15/19 07/14/19 Rx Apixaban [Eliquis] 2.5 mg PO BID 30 Days #60 tablet 05/15/19 07/14/19 Rx Aspirin 81 mg PO DAILY 30 Days #30 chew 05/15/19 07/14/19 Rx Atorvastatin [Lipitor] 40 mg PO DAILY 30 Days #30 tab 05/15/19 07/14/19 Rx Furosemide [Lasix] 20 mg PO DAILY 30 Days #30 tab 05/15/19 07/14/19 Rx Lisinopril [Zestril] 5 mg PO DAILY 30 Days #30 tab 05/15/19 07/14/19 Rx Metoprolol Tartrate [Lopressor] 12.5 mg PO BID 07/14/19 07/14/19 History Allergies Allergy/AdvReac Type Severity Reaction Status Date / Time morphine Allergy Itching Verified 07/14/19 21:06 narcotics Allergy Unknown Uncoded 07/14/19 21:06 Physical Exam Vitals: Vital Signs Temp Pulse Resp BP Pulse Ox 07/18/19 12:00 96.8 F L 79 20 96/40 96 07/18/19 10:00 91 13 100/43 97 07/18/19 08:30 20 07/18/19 08:01 97.6 F 87 14 106/44 96 07/18/19 04:00 97.7 F 88 17 95/44 99 07/18/19 00:00 98.6 F 87 16 90/55 94 L 07/17/19 22:00 98.0 F 85 16 93/36 95 07/17/19 20:00 86 16 86/43 07/17/19 16:00 97.7 F 79 16 99/40 98 Intake and Output 07/18/19 07/18/19 07/18/19 06:59 14:59 22:59 Intake Total 20 Output Total 300 0 Balance -300 20 Intake: IV 20 Sodium Chloride 0.9% 1, 20 000 ml @ 20 mls/hr IV . Q24H [facility] Rx#:[id number] Output: Urine 300 0 Other: Voiding Method Indwelling Catheter Indwelling Catheter Weight 45.359 kg Vital Signs: Reviewed in EMR GENERAL: Sitting in bed PSYCH: Mood and affect is appropriate. Somewhat sluggish to respond SKIN: Skin color, texture, turgor normal, no rashes or lesions HEENT: Normocephalic, atraumatic. EOM intact CV: No pedal edema RESP: Respirations are unlabored, no audible wheezing GI: Abdomen non-distended MUSCULOSKELETAL: She does have pain in her left hip NEUR: o loss of sensation is noted. Cranial nerves are grossly intact. Results CBC & Chem 7: 07/18/19 04:22 07/18/19 04:22 Labs: Abnormal Lab Results - Last 24 Hours (Table) 07/18/19 07/18/19 Range/Units 04:22 04:22 RBC 2.18 L (3.80-5.40) m/uL Hgb 7.5 L (11.4-16.0) gm/dL Hct 21.9 L (34.0-46.0) % MCV 100.6 H (80.0-100.0) fL Plt Count 126 L (150-450) k/uL Neutrophils # 9.3 H (1.3-7.7) k/uL Lymphocytes # 0.4 L (1.0-4.8) k/uL Sodium 128 L (137-145) mmol/L Carbon Dioxide 17 L (22-30) mmol/L BUN 19 H (7-17) mg/dL Glucose 100 H (74-99) mg/dL Calcium 8.2 L (8.4-10.2) mg/dL AST 167 H (14-36) U/L ALT 105 H (9-52) U/L Total Protein 5.4 L (6.3-8.2) g/dL Albumin 2.8 L (3.5-5.0) g/dL Assessment and Plan Assessment: This is 73-year-old female with cardiac history who is postoperative day 2 from hip fracture. Her blood pressure has limited the amount of Dilaudid she has been receiving, however when she has received Dilaudid she does report some pain control. Furthermore her AST and ALT are elevated, precluding scheduled Tyleno l. Given her heart disease NSAIDs are relatively contraindicated. Her pain should slightly be improving given that she has 2 days of surgery. 1. Acute postoperative pain 2. Chronic low back pain 3. Pain related to her renal disease Given her current clinical situation agree with the current dosage of Mentone one to 2 tablets every 6 hours for moderate pain, for severe pain would continue 0.5 mg of Dilaudid every 2 hours. Would recommend that she gets this more often, however her blood pressure must be improved, she is receiving IV fluids. Thus IV Dilaudid at this current dose will likely control her pain, she said that when she received the medication she did feel better. The only addition at this time would be gabapentin 300 twice a day, if she is too sedated from this with discontinue. If you have any further questions or concerns please feel to contact us if you have any other questions or concerns, we will sign off at this time. PQRS Measure Charge Sheet PQRS Narrative: Smoking Status Former smoker Do You Want the Pneumonia No Vaccine AT THIS TIME? Blood Pressure [Left Arm] 103/71 Blood Pressure 96/40 Pain Intensity [Left Hip] 8 Pain Intensity 4 Pain Scale Used Numeric (1 - 10) Scale Used Numeric (1 - 10) Home Medications: Ambulatory Orders Isosorbide Mononitrate ER [Imdur] 30 mg PO DAILY 08/24/15 Thyroid,Pork [[place] Thyroid] 60 mg PO DAILY 08/24/15 Amiodarone [Cordarone] 200 mg PO BID 30 Days #60 tab 05/15/19 Apixaban [Eliquis] 2.5 mg PO BID 30 Days #60 tablet 05/15/19 Aspirin 81 mg PO DAILY 30 Days #30 chew 05/15/19 Atorvastatin [Lipitor] 40 mg PO DAILY 30 Days #30 tab 05/15/19 Furosemide [Lasix] 20 mg PO DAILY 30 Days #30 tab 05/15/19 Lisinopril [Zestril] 5 mg PO DAILY 30 Days #30 tab 05/15/19 Metoprolol Tartrate [Lopressor] 12.5 mg PO BID 07/14/19
--- NOTE | 2019-07-18 17:10 | P.PN ---
Subjective Progress Note Date: 07/18/19 This is a 73-year-old female with history of ischemic heart disease with history of non-STEMI in April of this year. A cardiac catheterization at that time showed subtotal occlusion of the left main with occluded HERNANDEZ graft to the LAD but functional vein graft to the diagonal, which is filling the LAD also. There is one more vein graft to OM that was functioning. Patient was advised maximum medical therapy and patient has been doing fairly well until this admission with fracture of the hip. She did have some chest pain yesterday which was relieved with nitroglycerin. EKG did show some ST-T changes. Her troponin values are borderline elevated but the trend is not consistent with acute coronary syndrome or acute myocardial damage pattern. At this point we'll have discussed with patient regarding options. As there is no correctable coronary lesions from the last cardiac catheterization and also the fact that any intervention would postpone her surgery, patient is advised to go ahead with surgery at this time with the understanding that there is risk of myocardial infarctions and possible other complications like CHF and cardiac arrhythmias. Patient fully understood and wants to go ahead with surgery. Meanwhile we'll continue with maximal medical therapy. 07/17/2019: This patient with history of ischemic heart disease and previous bypass surgery was admitted following a fall with fracture of the hip. Patient also has started having chest pain suggestive of unstable angina with abnormal troponin values. Patient did undergo surgery for the hip fracturre, yesterday. Tolerated the procedure fairly well. Hasn't had any recurrence of chest pain. Still complains of pain in the hip area. From Cardec standpoint we'll continue current medical therapy. We'll resume her anticoagulations therapy. We'll follow. 07/18/2019: This patient with history of previous bypass surgery and known coronary artery disease had surgery for fracture of the hip. Cardiac-bello patient tolerated the procedure well. Her blood pressures have been low. She still complaining of pain in the hip area. Denies any chest pains. Consultation was obtained for pain management. Cardiac-bello, patient is stable. We'll continue current medical therapy Objective - Vital Signs Vital signs: Vital Signs Temp 96.8 F L 07/18/19 16:00 Pulse 75 07/18/19 16:00 Resp 17 07/18/19 16:00 BP 104/41 07/18/19 16:00 Pulse Ox 96 07/18/19 12:00 Intake & Output 07/17/19 07/18/19 07/18/19 18:59 06:59 18:59 Intake Total 500 1730 Output Total 200 400 75 Balance 300 -400 1655 Weight 45.359 kg Intake: IV 230 1610 Sodium Chloride 0.9% 1, 1550 000 ml @ 100 mls/hr IV . Q10H [facility] Rx#:[id number] Sodium Chloride 0.9% 1, 230 60 000 ml @ 20 mls/hr IV . Q24H [facility] Rx#:[id number] Intake, IV Titration 50 Amount ceFAZolin 2 gm In Sodium 50 Chloride 0.9% 50 ml @ 100 mls/hr IVPB Q8HR [facility] Rx# :[id number] Oral 220 120 Output: Urine 200 400 75 Other: Voiding Method Indwelling Catheter Indwelling Catheter Indwelling Catheter ABP, PAP, CO, CI - Last Documented Arterial Blood Pressure 100/42 - Exam GENERAL EXAM: Patient is alert and oriented and doesn't appear to be in any acut e distress HEENT: Normocephalic. Normal reaction of pupils, equal size, normal range of extraocular motion. No erythema or exudates in the throat. NECK: No masses, no nuchal rigidity. CHEST: No chest wall deformity. LUNGS: Equal air entry with no crackles or wheeze. HEART: S1 and S2 normal with no audible mumurs or gallops. Regular rhythm, femorals equal on both sides.. ABDOMEN: No hepatosplenomegaly, normal bowel sounds, no guarding or rigidity. SKIN: No rashes CENTRAL NERVOUS SYSTEM: No focal deficits. EXTREMITIES: No cyanosis, clubbing or edema. - Labs CBC & Chem 7: 07/18/19 04:22 07/18/19 04:22 Labs: Abnormal Lab Results - Last 24 Hours (Table) 07/18/19 07/18/19 Range/Units 04:22 04:22 RBC 2.18 L (3.80-5.40) m/uL Hgb 7.5 L (11.4-16.0) gm/dL Hct 21.9 L (34.0-46.0) % MCV 100.6 H (80.0-100.0) fL Plt Count 126 L (150-450) k/uL Neutrophils # 9.3 H (1.3-7.7) k/uL Lymphocytes # 0.4 L (1.0-4.8) k/uL Sodium 128 L (137-145) mmol/L Carbon Dioxide 17 L (22-30) mmol/L BUN 19 H (7-17) mg/dL Glucose 100 H (74-99) mg/dL Calcium 8.2 L (8.4-10.2) mg/dL AST 167 H (14-36) U/L ALT 105 H (9-52) U/L Total Protein 5.4 L (6.3-8.2) g/dL Albumin 2.8 L (3.5-5.0) g/dL Assessment and Plan (1) Unstable angina Current Visit: Yes Status: Acute Code(s): I20.0 - UNSTABLE ANGINA SNOMED Code(s): 4402467 (2) History of coronary artery bypass graft Current Visit: Yes Status: Acute Code(s): Z95.1 - PRESENCE OF AORTOCORONARY BYPASS GRAFT SNOMED Code(s): 242192634 (3) Paroxysmal atrial fibrillation Current Visit: Yes Status: Acute Code(s): I48.0 - PAROXYSMAL ATRIAL FIBRILLATION SNOMED Code(s): 379931730 Plan: Cardiac-blelo, patient remains stable. No recurrence of chest pains. Pain management being addressed. We'll continue current medical therapy
[2019-07-18] MEDS ORDERED: SODIUM CHLORIDE 0.9% 1,000 ML IV ONE (19:44)
[2019-07-18] MEDS ORDERED: GABAPENTIN 300 MG CAP PO SCH (21:00)
[2019-07-19] MEDS: HYDROcodone/APAP 5-325MG 1 EACH TAB PO PRN (00:20)
[2019-07-19 00:46] VITALS: TEMP 97.8
[2019-07-19] MEDS: SODIUM CHLORIDE 0.9% 1,000 ML IV SCH ×2 (02:21→03:30)
[2019-07-19] MEDS ORDERED: PIPERACILLIN-TAZOBACTAM 3.375 GM in SODIUM CHLORIDE 0.9% 100 ML IVPB SCH (02:45)
[2019-07-19] MEDS ORDERED: SODIUM CHLORIDE 0.9% 1,000 ML IV ONE (03:16)
[2019-07-19 03:17] LABS: Basophils % (A) 0 %; Eosinophils % (A) 1 %; HCT 21.7 % (34.0-46.0); HGB 7.1 gm/dL (11.4-16.0); Lymphocytes # (A) 0.7 k/uL (1.0-4.8); Lymphocytes % (A) 7 %; MCH 33.4 pg (25.0-35.0); MCHC 32.7 g/dL (31.0-37.0); MCV 102.3 fL (80.0-100.0); Macrocytosis Slight; Mean Platelet Volume 8.9; Monocytes # (A) 0.7 k/uL (0-1.0); Monocytes % (A) 7 %; Neutrophils # (A) 7.7 k/uL (1.3-7.7); Neutrophils % (A) 83 %; Platelet Count 159 k/uL (150-450); RBC 2.12 m/uL (3.80-5.40); WBC 9.2 k/uL (3.8-10.6)
[2019-07-19 04:05] LABS: Albumin 2.3 g/dL (3.5-5.0); Calcium 7.1 mg/dL (8.4-10.2); Potassium 5.3 mmol/L (3.5-5.1); Total Bilirubin 1.1 mg/dL (0.2-1.3); Total Protein 4.6 g/dL (6.3-8.2)
[2019-07-19 04:35] LABS: Glucose,Whole Blood 106 mg/dL (75-99)
[2019-07-19] MEDS ORDERED: SODIUM BICARB 8.4% 50 ML SYR (1 MEQ/ML) ONE ×2 (04:37)
[2019-07-19] MEDS ORDERED: CALCIUM CHLORIDE 100 MG/ML 10 ML SYRINGE ONE (04:37)
[2019-07-19] MEDS ORDERED: EPINEPHrine 10 ML SYRINGE (0.1 MG/ML) ONE ×2 (04:37)
[2019-07-19] MEDS ORDERED: CHLORHEXIDINE GLUCONATE 15 ML CUP MUCOUS MEM ONE (04:45)
--- NOTE | 2019-07-19 07:35 | ED ---
CPR HPI - General Chief Complaint: Fall Stated Complaint: Fall Time Seen by Provider: 07/14/19 21:45 Source: patient, family, EMS Mode of arrival: EMS Limitations: no limitations - History of Present Illness Initial Comments: I was called to the floor for a CODE BLUE. Patient was admitted to the hospital days ago for a fall and underwent a left hip replacement. Upon my arrival the patient had been intubated by the ROOFER ASSISTANT. CPR was in progress. - Related Data Home Medications Medication Instructions Recorded Confirmed Isosorbide Mononitrate ER [Imdur] 30 mg PO DAILY 08/24/15 07/14/19 Thyroid,Pork [[place] Thyroid] 60 mg PO DAILY 08/24/15 07/14/19 Metoprolol Tartrate [Lopressor] 12.5 mg PO BID 07/14/19 07/14/19 Previous Rx's Medication Instructions Recorded Amiodarone [Cordarone] 200 mg PO BID 30 Days #60 tab 05/15/19 Apixaban [Eliquis] 2.5 mg PO BID 30 Days #60 tablet 05/15/19 Aspirin 81 mg PO DAILY 30 Days #30 chew 05/15/19 Atorvastatin [Lipitor] 40 mg PO DAILY 30 Days #30 tab 05/15/19 Furosemide [Lasix] 20 mg PO DAILY 30 Days #30 tab 05/15/19 Lisinopril [Zestril] 5 mg PO DAILY 30 Days #30 tab 05/15/19 Allergies Allergy/AdvReac Type Severity Reaction Status Date / Time morphine Allergy Itching Verified 07/14/19 21:06 narcotics Allergy Unknown Uncoded 07/14/19 21:06 Review of Systems ROS Statement: Those systems with pertinent positive or pertinent negative responses have been documented in the HPI. ROS Other: All systems not noted in ROS Statement are negative. Past Medical History Past Medical History: Coronary Artery Disease (CAD), Hyperlipidemia, Hypertension, Myocardial Infarction ([place]) Additional Past Medical History / Comment(s): samaria mcfarlane, back pain, [place] 04/2019 Last Myocardial Infarction Date:: 04/2019 History of Any Multi-Drug Resistant Organisms: None Reported Past Surgical History: Coronary Bypass/CABG, Heart Catheterization Additional Past Surgical History / Comment(s): back fusion approx 2008 Past Anesthesia/Blood Transfusion Reactions: No Reported Reaction Additional Past Anesthesia/Blood Transfusion Reaction / Comment(s): "takes longer to come out from anesthesia" Past Psychological History: No Psychological Hx Reported Smoking Status: Former smoker Past Alcohol Use History: Occasional Past Drug Use History: None Reported General Exam - General Exam Comments Initial Comments: Physical Exam GENERAL: In extremis, CPR in progress HENT: Normocephalic, Atraumatic. EYES: Pupils fixed and dilated PULMONARY: Crackles bilaterally CARDIOVASCULAR: CPR in progress Diffuse edema ABDOMEN: Soft and nontender with normal bowel sounds. SKIN: Pale : Normal external genitalia, Friedman catheter in place, scant amount of dark urine produced NEUROLOGIC: Unresponsive MUSCULOSKELETAL: Diffuse edema with third spacing of fluids PSYCHIATRIC: Unresponsive Limitations: no limitations Course Vital Signs 07/14/19 07/14/19 07/14/19 21:00 21:07 22:00 Temperature 97.9 F Pulse Rate 78 Respiratory 18 Rate Blood Pressure 139/70 139/70 139/70 O2 Sat by Pulse 97 98 Oximetry 07/15/19 07/15/19 07/15/19 00:00 00:44 01:07 Temperature Pulse Rate 64 85 79 Respiratory 12 18 16 Rate Blood Pressure 99/47 105/46 119/53 O2 Sat by Pulse 92 L 100 100 Oximetry 07/15/19 07/15/19 02:00 02:57 Temperature 98.0 F Pulse Rate 64 66 Respiratory 10 L 16 Rate Blood Pressure 100/44 102/50 O2 Sat by Pulse 91 L 98 Oximetry Procedures - [place] Protocol (Time Out) Patient Identification (2 identifiers required): Chart, Verbal, Arm Band, Name, Birthdate 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 Upon my arrival the patient was pulseless, apneic she had been intubated by the ROOFER ASSISTANT. CPR was in progress. I reviewed the most recent set of labs which revealed the patient had worsening kidney function, apparent shock liver. Hyperkalemia, hyponatremia and lactic acidosis. Based on these labs I recommended calcium and bicarbonate be given during this code. After multiple rounds of epinephrine and CPR the patient had return of spontaneo us circulation, a 12-lead EKG was obtained which revealed wide complex regular rhythm with a bifascicular block. When compared to previous EKG these were significant new likely ischemic changes. Patient never developed any neurologic function, she had no spontaneous breathing she never required sedation. She was requiring escalating doses of the left side with frequent epinephrine. Patient again lost pulses multiple times and CPR was resumed. Additional laboratory studies added on to the blood that had been obtained at 3 AM, patient's troponin resulted at 14. Multiple attempts were made to contact the patient's family to discuss further resuscitation After multiple rounds of CPR with transient return of spontaneous circulation. Patient remained unresponsive. Patient labs resulting with evidence of multisystem organ failure. Patient with no meaningful neurologic recovery. [id number] glucose was measured to be low when measured from the fingers however when observing this measurement I noted that the patient that there is a significant amount of fluid and the blood draw they were getting from a capillary poke was very diluted. I had a high suspicion for the patient's glucose was higher than this and that this was a falsely low reading. The patient here was noted to not be edematous and we checked glucose off of the earlobe and noted that it was greater than 300. I do not feel the hypoglycemia was a true reading I do not feel that hyperglycemia contributed to the patient's condition. At this point I find further resuscitative measures to be futile. PAtient noted to be in asystole at pulse check and patient was pronounced at 5:19 AM. - Lab Data Result diagrams: 07/19/19 03:00 07/19/19 03:05 Lab Results 07/14/19 07/14/19 07/14/19 Range/Units 22:43 22:43 22:43 WBC 7.9 (3.8-10.6) k/uL RBC 3.45 L (3.80-5.40) m/uL Hgb 11.1 L (11.4-16.0) gm/dL Hct 34.4 (34.0-46.0) % MCV 99.6 (80.0-100.0) fL MCH 32.2 (25.0-35.0) pg MCHC 32.3 (31.0-37.0) g/dL RDW 13.0 (11.5-15.5) % Plt Count 184 (150-450) k/uL Neutrophils % 80 % Lymphocytes % 9 % Monocytes % 7 % Eosinophils % 1 % Basophils % 1 % Neutrophils # 6.3 (1.3-7.7) k/uL Lymphocytes # 0.7 L (1.0-4.8) k/uL Monocytes # 0.6 (0-1.0) k/uL Eosinophils # 0.1 (0-0.7) k/uL Basophils # 0.0 (0-0.2) k/uL PT 10.3 (9.0-12.0) sec INR 1.0 (<1.2) APTT 24.3 (22.0-30.0) sec Sodium 135 L (137-145) mmol/L Potassium 3.8 (3.5-5.1) mmol/L Chloride 105 (98-107) mmol/L Carbon Dioxide 20 L (22-30) mmol/L Anion Gap 10 mmol/L BUN 21 H (7-17) mg/dL Creatinine 0.82 (0.52-1.04) mg/dL Est GFR (CKD-EPI)AfAm 82 (>60 ml/min/1.73 sqM) Est GFR (CKD-EPI)NonAf 71 (>60 ml/min/1.73 sqM) Glucose 99 (74-99) mg/dL Calcium 8.6 (8.4-10.2) mg/dL Magnesium (1.6-2.3) mg/dL Total Bilirubin 0.5 (0.2-1.3) mg/dL AST 73 H (14-36) U/L ALT 88 H (9-52) U/L Alkaline Phosphatase 115 (38-126) U/L Troponin I (0.000-0.034) ng/mL Total Protein 6.3 (6.3-8.2) g/dL Albumin 3.6 (3.5-5.0) g/dL Urine Color Urine Appearance (Clear) Urine pH (5.0-8.0) Ur Specific [place] (1.001-1.035) Urine Protein (Negative) Urine Glucose (UA) (Negative) Urine Ketones (Negative) Urine Blood (Negative) Urine Nitrite (Negative) Urine Bilirubin (Negative) Urine Urobilinogen (<2.0) mg/dL Ur Leukocyte Esterase (Negative) Blood Type Blood Type Recheck Bld Type Recheck Status Antibody Screen Spec Expiration Date 07/14/19 07/14/19 07/14/19 Range/Units 22:43 22:43 22:43 WBC (3.8-10.6) k/uL RBC (3.80-5.40) m/uL Hgb (11.4-16.0) gm/dL Hct (34.0-46.0) % MCV (80.0-100.0) fL MCH (25.0-35.0) pg MCHC (31.0-37.0) g/dL RDW (11.5-15.5) % Plt Count (150-450) k/uL Neutrophils % % Lymphocytes % % Monocytes % % Eosinophils % % Basophils % % Neutrophils # (1.3-7.7) k/uL Lymphocytes # (1.0-4.8) k/uL Monocytes # (0-1.0) k/uL Eosinophils # (0-0.7) k/uL Basophils # (0-0.2) k/uL PT (9.0-12.0) sec INR (<1.2) APTT (22.0-30.0) sec Sodium (137-145) mmol/L Potassium (3.5-5.1) mmol/L Chloride (98-107) mmol/L Carbon Dioxide (22-30) mmol/L Anion Gap mmol/L BUN (7-17) mg/dL Creatinine (0.52-1.04) mg/dL Est GFR (CKD-EPI)AfAm (>60 ml/min/1.73 sqM) Est GFR (CKD-EPI)NonAf (>60 ml/min/1.73 sqM) Glucose (74-99) mg/dL Calcium (8.4-10.2) mg/dL Magnesium 2.0 (1.6-2.3) mg/dL Total Bilirubin (0.2-1.3) mg/dL AST (14-36) U/L ALT (9-52) U/L Alkaline Phosphatase (38-126) U/L Troponin I <0.012 (0.000-0.034) ng/mL Total Protein (6.3-8.2) g/dL Albumin (3.5-5.0) g/dL Urine Color Urine Appearance (Clear) Urine pH (5.0-8.0) Ur Specific [place] (1.001-1.035) Urine Protein (Negative) Urine Glucose (UA) (Negative) Urine Ketones (Negative) Urine Blood (Negative) Urine Nitrite (Negative) Urine Bilirubin (Negative) Urine Urobilinogen (<2.0) mg/dL Ur Leukocyte Esterase (Negative) Blood Type O Positive Blood Type Recheck O Pos Bld Type Recheck Status No Antibody Screen NEGATIVE Spec Expiration Date 07/17/2019234207/15/19 Range/Units 00:42 WBC (3.8-10.6) k/uL RBC (3.80-5.40) m/uL Hgb (11.4-16.0) gm/dL Hct (34.0-46.0) % MCV (80.0-100.0) fL MCH (25.0-35.0) pg MCHC (31.0-37.0) g/dL RDW (11.5-15.5) % Plt Count (150-450) k/uL Neutrophils % % Lymphocytes % % Monocytes % % Eosinophils % % Basophils % % Neutrophils # (1.3-7.7) k/uL Lymphocytes # (1.0-4.8) k/uL Monocytes # (0-1.0) k/uL Eosinophils # (0-0.7) k/uL Basophils # (0-0.2) k/uL PT (9.0-12.0) sec INR (<1.2) APTT (22.0-30.0) sec Sodium (137-145) mmol/L Potassium (3.5-5.1) mmol/L Chloride (98-107) mmol/L Carbon Dioxide (22-30) mmol/L Anion Gap mmol/L BUN (7-17) mg/dL Creatinine (0.52-1.04) mg/dL Est GFR (CKD-EPI)AfAm (>60 ml/min/1.73 sqM) Est GFR (CKD-EPI)NonAf (>60 ml/min/1.73 sqM) Glucose (74-99) mg/dL Calcium (8.4-10.2) mg/dL Magnesium (1.6-2.3) mg/dL Total Bilirubin (0.2-1.3) mg/dL AST (14-36) U/L ALT (9-52) U/L Alkaline Phosphatase (38-126) U/L Troponin I (0.000-0.034) ng/mL Total Protein (6.3-8.2) g/dL Albumin (3.5-5.0) g/dL Urine Color Yellow Urine Appearance Clear (Clear) Urine pH 6.0 (5.0-8.0) Ur Specific [place] 1.017 (1.001-1.035) Urine Protein Trace H (Negative) Urine Glucose (UA) Negative (Negative) Urine Ketones 1+ H (Negative) Urine Blood Negative (Negative) Urine Nitrite Negative (Negative) Urine Bilirubin Negative (Negative) Urine Urobilinogen <2.0 (<2.0) mg/dL Ur Leukocyte Esterase Negative (Negative) Blood Type Blood Type Recheck Bld Type Recheck Status Antibody Screen Spec Expiration Date Critical Care Time Critical Care Time: Yes Total Critical Care Time: 75 Critical Care Time: Critical Care Time Critical care time was exclusive of separately billable procedures and treating other patients and teaching time. Critical care was necessary to treat or prevent imminent or life-threatening de terioration. Given the critical condition in which the patient arrived, the patient was immediately assessed by myself and the nurse, and cardiac monitoring initiated due to the potential for rapid decompensation of the patient's clinical condition. During the course of the patients stay, I spent a considerable amount of time at the bedside performing serial re-evaluations of the patient's hemody namic and clinical status because of the recognized potential threat to life or limb in this condition. I then had a chance to review not only all of the available current laboratory and radiographic studies obtained today, but I also reviewed old records available to me at the time. Additionally, any ancillary information available including production department supervisor records were reviewed. Sequential vital signs were obtained. Disposition Clinical Impression: Prolonged QT interval, Hip fracture Disposition: ADMITTED IP TO THIS HOSP Condition: Fair
[2019-07-19 07:48] LABS: Glucose,Whole Blood <20 mg/dL (75-99)
[2019-07-19 07:48] LABS: Glucose,Whole Blood <20 mg/dL (75-99)
[2019-07-19 07:48] LABS: Glucose,Whole Blood 365 mg/dL (75-99)
[2019-07-19 08:46] VITALS: BP 91/66; PULSE 80; RESP 22
[2019-07-19] MEDS ORDERED: PANTOPRAZOLE 40 MG TABLET PO SCH (09:00)
--- NOTE | 2019-07-19 11:15 | P.DS ---
Providers Date of admission: 07/15/19 02:23 Attending physician: Ada Truong Consults: 07/15/19 00:01 Consult Physician Routine Consulting Provider: Kevin Pena Consult Reason/Comments: prolonged qt, cardiac clearance Do you want consulting provider notified?: Yes 07/15/19 02:25 Consult Physician Routine Consulting Provider: Ada Truong Consult Reason/Comments: medical management Do you want consulting provider notified?: Yes 07/15/19 09:10 Consult Physician Routine Consulting Provider: Warren Gomez Consult Reason/Comments: hip fracture Do you want consulting provider notified?: Already Contacted Primary care physician: Katherin Sanchez Hospital Course: Discharge diagnosis #1 fall was left hip fracture. Status post operative fixation of the left intertrochanteric hip fracture with short intramedullary hip screw with Dr. Gomez. Patient is currently postop day 2. #2 unstable angina. Troponins 0.646, 0.57 and 0.284. Patient was evaluated by cardiology services. Patient was started on heparin drip prior to surgery. #3 underlying history of coronary artery disease #4 underlying history of paroxysmal atrial fibrillation. Eliquis has been resumed per cardiology and orthopedic services #5 underlying history of hypertension #6 underlying history of hyperlipidemia #7 underlying history of hypothyroidism #8. Increased anxiety. Xanax added #9. Expected acute blood loss anemia secondary to surgery. Hemoglobin dropping to 7.6 will continue to monitor #10 low urine output. Jang catheter placed. 500 mL bolus to be given #11. Hyponatremia. Sodium 128. Patient placed on 1200 mL fluid restriction. We'll continue to monitor Hospital course Christin Reddy is a 73-year-old female who presented to [facility] emergency room after sustaining a fall and having severe left hip pain, she was evaluated in the emergency room and was found to have a displaced intertrochanteric left hip fracture. She was admitted to the medical floor under orthopedic surgery service, This morning patient started having chest pain she was given sublingual nitroglycerin which resulted in improvement in her chest pain, she was transferred to intensive care unit and cardiology consultation were requested. Patient has a known history of coronary artery disease, and known history of coronary artery bypass graft surgery 4 in the past, she is followed by Dr. López as outpatient, she also has a known history of paroxysmal atrial fibrillation she is maintained on amiodarone and Eliquis. On 07/16/2019 patient was seen and examined in the intensive care unit, she is alert and oriented 3 in no apparent distress, she is still complaining of hip pain, otherwise she denies any complaints at this time, there is no fever or chills no headache or dizziness no chest pain no shortness of breath no cough no nausea or vomiting no abdominal pain no diarrhea no burning with urination no frequency or urgency no hematuria. On 07/17/2019 patient remains in the intensive care unit. Patient's alert and oriented 3. Patient is up to chair. Patient is status post operative fixation of the left intertrochanteric hip fracture with short intramedullary hip screw with Dr. Gomez. Patient is currently postop day 1 hemoglobin decreasing to 7.6. no signs of bleeding. At this time patient is having increased anxiety Xanax added. Patient denies chest pain or shortness breath. Patient denies nausea vomiting or diarrhea. Patient denies any urinary burning or frequency On 07/18/2019 patient's alert and oriented 3. Patient is having increased pain came and administered per nursing staff. Patient is currently postop day 2. Eliquis has been resumed per cardiology and orthopedic services. Hemoglobin 7.5. No signs of acute bleeding. Patient does have low urine output 500 mL bolus will be given. At this time patient denies chest pain or shortness of breath. Patient denies nausea vomiting or diarrhea. Patient denies any urinary burning or frequency. jang catheter has been placed On 07/19/2019 at approximately 0504 patient went into cardiac arrest. ALS was initiated. Time of 604 I performed an examination of the patient and discussed their management with the Nurse Practitioner. I have reviewed the Nurse Practitioner's notes and agree with the documented findings and plan of care Plan - Discharge Summary Discharge Rx Participant: Yes New Discharge Prescriptions: No Action Isosorbide Mononitrate ER [Imdur] 30 mg PO DAILY Thyroid,Pork [[place] Thyroid] 60 mg PO DAILY Aspirin 81 mg PO DAILY 30 Days #30 chew Amiodarone [Cordarone] 200 mg PO BID 30 Days #60 tab Apixaban [Eliquis] 2.5 mg PO BID 30 Days #60 tablet Furosemide [Lasix] 20 mg PO DAILY 30 Days #30 tab Atorvastatin [Lipitor] 40 mg PO DAILY 30 Days #30 tab Lisinopril [Zestril] 5 mg PO DAILY 30 Days #30 tab Metoprolol Tartrate [Lopressor] 12.5 mg PO BID Discharge Medication List Isosorbide Mononitrate ER [Imdur] 30 mg PO DAILY 08/24/15 [History] Thyroid,Pork [[place] Thyroid] 60 mg PO DAILY 08/24/15 [History] Amiodarone [Cordarone] 200 mg PO BID 30 Days #60 tab 05/15/19 [Rx] Apixaban [Eliquis] 2.5 mg PO BID 30 Days #60 tablet 05/15/19 [Rx] Aspirin 81 mg PO DAILY 30 Days #30 chew 05/15/19 [Rx] Atorvastatin [Lipitor] 40 mg PO DAILY 30 Days #30 tab 05/15/19 [Rx] Furosemide [Lasix] 20 mg PO DAILY 30 Days #30 tab 05/15/19 [Rx] Lisinopril [Zestril] 5 mg PO DAILY 30 Days #30 tab 05/15/19 [Rx] Metoprolol Tartrate [Lopressor] 12.5 mg PO BID 07/14/19 [History] Follow up Appointment(s)/Referral(s): Katherin Sanchez MD [Primary Care Provider] - 1-2 days Discharge Disposition: - Preliminary Cause of Preliminary Cause of : Probable coronary artery disease
--- NOTE | 2019-07-20 16:46 | CDI ---
Documentation Clarification Form Date: 07/20/2019 4:21:24 PM From: Denise Bravo RN, CCDS Email: [email or web address] Admit Date: 07/15/2019 2:23:00 AM Patient Name: Christin Reddy Visit Number: [id number] Discharge Date: 07/19/2019 9:37:00 AM ATTENTION: The Clinical Documentation Specialists (CDI) and [facility] Coding Staff appreciate your assistance in clarifying documentation. Please respond to the clarification below the line at the bottom and electronically sign. The CDI & [facility] Coding staff will review the response and follow-up if needed. Please note: Queries are made part of the Legal Health Record. If you have any questions, please contact the author of this message via ITS. Dr. Ada Truong Patient with elevated troponins during admission. Patient history/risk factors: CAD with CABG x4, Hyperlipidemia, Ischemic Heart Disease, Angina and Paroxysmal Atrial Fibrillation. Back in April, patient had a cardiac catheterization and was noted to have near total occlusion of the left main, total occlusion of the [place] circumflex and also right coronary artery distally. The HERNANDEZ graft to LAD is totally occluded. The vein graft to diagonal is patent. The vein graft to one of the vein graft is totally occluded and the second one is patent. The diagonal graft provides blood supply to the LAD distribution with the retrograde flow to the circumflex and also to the RCA. Maximum medical therapy was advised at the time. She was also found to have moderate to severe mitral regurgitation. Clinical indicators: chest pain, troponins <0.012-0.268-0.697-0.646-0.517-0.284-14.100, cardiac arrest, EKG showed ST depression and prolonged QT interval, hypotensive, tachycardic Treatment: IV Heparin, po Amiodarone, SL NTG, Imdur, Lopressor, resuscitation effort In your professional opinion, can you please specify the diagnosis, if any, indicated by the above clinical indicators and treatment? NSTEMI -Specific Site -Specific Artery STEMI -Specific Site -Specific Artery -Any complications Non Q Wave [place] -Specific Site -Specific Artery Other, please specify Unable to determine Unable to determine MTDD
--- NOTE | 2019-07-20 17:09 | CDI ---
Documentation Clarification Form Date: 07/20/2019 4:49:48 PM From: Denise Bravo RN, CCDS Email: [email or web address] Admit Date: 07/15/2019 2:23:00 AM Patient Name: Christin Reddy Visit Number: [id number] Discharge Date: 07/19/2019 9:37:00 AM ATTENTION: The Clinical Documentation Specialists (CDI) and [facility] Coding Staff appreciate your assistance in clarifying documentation. Please respond to the clarification below the line at the bottom and electronically sign. The CDI & [facility] Coding staff will review the response and follow-up if needed. Please note: Queries are made part of the Legal Health Record. If you have any questions, please contact the author of this message via ITS. Dr. Ada Truong On 07/19/2019 at approximately 0504 patient went into cardiac arrest. Patient history/risk factors: CAD with CABG x4, hyperlipidemia, ischemic heart disease, Angina and paroxysmal atrial fibrillation. Back in April, patient had a cardiac catheterization and was noted to have near total occlusion of the left main, total occlusion of the [place] circumflex and also right coronary artery distally. The HERNANDEZ graft to LAD is totally occluded. The vein graft to diagonal is patent. The vein graft to one of the vein graft is totally occluded and the second one is patent. The diagonal graft provides blood supply to the LAD distribution with the retrograde flow to the circumflex and also to the RCA. Maximum medical therapy was advised at the time. She was also found to have moderate to severe mitral regurgitation. S/P anesthesia and internal fixation of hip fracture. Clinical Indicators: worsening kidney function, apparent shock liver, hyperkalemia, hyponatremia and lactic acidosis, new ischemic changes on EKG when compared to previous EKG, Cr 1.20, lactic acid 3.2 Vitals: BP low 47/32, HR high 135, RR 25 Treatment: CPR, several IVF bolus of 0.9 NS, IV Zosyn, IV Calcium Bicarbonate, Epinephrine In your professional opinion, can you please specify if the above is clinically significant for: Cardiogenic Shock Cause Septic shock Cause Other, please specify Unable to determine Unable to determine MTDD
--- NOTE | 2019-07-20 17:23 | CDI ---
Documentation Clarification Form Date: 07/20/2019 5:09:47 PM From: Denise Bravo RN, CCDS Email: [email or web address] Admit Date: 07/15/2019 2:23:00 AM Patient Name: Christin Reddy Visit Number: [id number] Discharge Date: 07/19/2019 9:37:00 AM ATTENTION: The Clinical Documentation Specialists (CDI) and [facility] Coding Staff appreciate your assistance in clarifying documentation. Please respond to the clarification below the line at the bottom and electronically sign. The CDI & [facility] Coding staff will review the response and follow-up if needed. Please note: Queries are made part of the Legal Health Record. If you have any questions, please contact the author of this message via ITS. Dr. Ada Truong Worsening kidney function was documented in the ED note from 07/19 History/Risk Factors: CAD with CABG x4, hyperlipidemia, ischemic heart disease, Angina and paroxysmal atrial fibrillation. Back in April, patient had a cardiac catheterization and was noted to have near total occlusion of the left main, total occlusion of the yocha dehe circumflex and also right coronary artery distally. The HERNANDEZ graft to LAD is totally occluded. The vein graft to diagonal is patent. The vein graft to one of the vein graft is totally occluded and the second one is patent. The diagonal graft provides blood supply to the LAD distribution with the retrograde flow to the circumflex and also to the RCA. Maximum medical therapy was advised at the time. She was also found to have moderate to severe mitral regurgitation. S/P anesthesia and internal fixation of hip fracture. Clinical Indicators: worsening kidney function, apparent shock liver, hyperkalemia, hyponatremia and lactic acidosis, new ischemic changes on EKG when compared to previous EKG, cardiac arrest, Cr 1.20, lactic acid 3.2 BUN/Cr/GFR: 31/1.20/45 Treatment: CPR, several IVF bolus of 0.9 NS, IV Calcium Bicarbonate, Epinephrine In order to capture the severity of condition, please clarify if the condition signifies: Acute renal failure, Please specify etiology (if known): Cortical Necrosis Medullary Necrosis Tubular Necrosis Acute kidney injury Other, please specify Unable to determine acute kidney injury MTDD
== END 2019-07-19 09:37 | disposition expired | DRG 480 ==
LOC: EC 20:58 → 4SSUR 07-15 02:23 → 2SICU 07-15 09:02
PROVIDERS: ADMIT Internal Medicine; ATTEND Internal Medicine
PROC: 0QS736Z Reposition Left Upper Femur with Intramedullary Internal Fixation Device, Percutaneous Approach (ICD-10-PCS; principal; 2019-07-16 16:00)
PROC: 0T9B70Z Drainage of Bladder with Drainage Device, Via Natural or Artificial Opening (ICD-10-PCS; 2019-07-18)
PROC: 5A12012 Performance of Cardiac Output, Single, Manual (ICD-10-PCS; 2019-07-18)
PROC: 0BH17EZ Insertion of Endotracheal Airway into Trachea, Via Natural or Artificial Opening (ICD-10-PCS; 2019-07-18)
DX: S72.142A Displaced intertrochanteric fracture of left femur, initial encounter for closed fracture (principal); K72.01 Acute and subacute hepatic failure with coma; D62 Acute posthemorrhagic anemia; E87.1 Hypo-osmolality and hyponatremia; E87.2 Acidosis; I25.720 Atherosclerosis of autologous artery coronary artery bypass graft(s) with unstable angina pectoris; I45.2 Bifascicular block; N17.9 Acute kidney failure, unspecified; W18.30XA Fall on same level, unspecified, initial encounter; E03.9 Hypothyroidism, unspecified; E78.5 Hyperlipidemia, unspecified; E87.5 Hyperkalemia; F41.9 Anxiety disorder, unspecified; G89.29 Other chronic pain; I08.0 Rheumatic disorders of both mitral and aortic valves; I10 Essential (primary) hypertension; I25.2 Old myocardial infarction; I25.82 Chronic total occlusion of coronary artery; Z95.1 Presence of aortocoronary bypass graft; Z87.891 Personal history of nicotine dependence; I46.9 Cardiac arrest, cause unspecified; I45.81 Long QT syndrome; I48.0 Paroxysmal atrial fibrillation; M35.00 Sjogren syndrome, unspecified; Z79.01 Long term (current) use of anticoagulants; Z79.82 Long term (current) use of aspirin; Z79.899 Other long term (current) drug therapy; Z98.1 Arthrodesis status; G89.18 Other acute postprocedural pain; I73.00 Raynaud's syndrome without gangrene; I95.9 Hypotension, unspecified; R39.12 Poor urinary stream; Z88.5 Allergy status to narcotic agent; R73.9 Hyperglycemia, unspecified
CPT/HCPCS: 36415; 70450; 71045; 72125; 72170; 73501; 73502; 80048; 80053; 81003; 83605; 83735; 84484; 85025; 85610; 85730; 86850; 86900; 86901; 87040; 92950; 93005; 93306; 94002; 94770; 96361; 96365; 96366; 96375; 96376; 99291; 99292